=== PATIENT | male | born 1940 | race Caucasian/White ===

== ENCOUNTER 2021-01-16 12:44 | Observation (INO) | payer MEDICARE ==
[2021-01-16] MEDS ORDERED: solu-MEDROL 125 MG, Sterile H2O 10 ml 2 ML IV ONE ×2 (13:09)
[2021-01-16] MEDS ORDERED: DUONEB 0.5-3 MG/3 ml Neb IH ONE ×2 (13:09→13:26)
[2021-01-16] MEDS ORDERED: solu-MEDROL ONE ×2 (13:11→20:19)
[2021-01-16] MEDS ORDERED: Sterile H2O 10 ml IJ ONE ×2 (13:12→20:20)
--- NOTE | 2021-01-16 13:47 | XRAY ---
Indication: Cough. Comparison: March 25, 2020. Portable chest demonstrates new diffuse bilateral hazy airspace disease, right greater than left without consolidation/large effusion. Heart not enlarged again with tortuous descending aorta. Bony thorax intact again with moderate degenerative changes and new right shoulder arthroplasty.
[2021-01-16] MEDS ORDERED: Zithromax 500 MG/ 250 ML NaCl Premix 500 MG/250 ML IVPB IV STA (14:00)
[2021-01-16] MEDS ORDERED: ROCEPHIN 2 Gm-D5w 50ML BAG** 2 G/50 ML IVPB IV STA (14:00)
[2021-01-16 14:03] LABS: BASOPHIL % 0.2 % (0.0-0.4); Basophil (Absolute #) 0.01 (0-0.4); Eosinophil (Absolute #) 0 (0-0.5); Hematocrit 40.9 % (42-50); Hemoglobin 14.1 gm/dl (12.5-18.0); Lymphocyte (Absolute #) 0.88 (1.0-4.6); Lymphocytes % 14.4 % (24.0-44.0); Mean Cell Volume 89.3 fl (78-100); Mean Corpuscular Hemoglobin 30.8 pg (26-32); Mean Corpuscular Hgb Concent. 34.5 g/dl (32-36); Monocyte (Absolute #) 0.63 (0.0-1.3); Monocytes % 10.3 % (0.0-12.0); Neutrophil % 75.1 % (36.0-66.0); Platelet Count 152 K/mm3 (150-450); Red Blood Count 4.58 M/mm3 (4.1-5.6); Red Cell Distribution Width 13.9 % (11.5-14.0); White Blood Count 6.1 K/mm3 (4.0-10.5)
[2021-01-16 14:05] LABS: ALBUMIN 3.9 g/dL (3.5-5.0); ALKALINE PHOSPHATASE 66 U/L (38-126); ANION GAP 14.1 MEQ/L (5-15); BLOOD UREA NITROGEN 16 mg/dL (9-20); CHLORIDE 97 mmol/L (98-107); Calcium 8.4 mg/dL (8.4-10.2); Carbon Dioxide 21 mmol/L (22-30); Creatinine 1 0.64 mg/dL (0.66-1.25); EST GLOMERULAR FILTRATION RATE > 60.0 ML/MIN; Glucose 115 mg/dL (74-106); NT PRO BNP 236 pg/mL (0-1800); Potassium 3.8 mmol/L (3.5-5.1); SGOT/AST 61 U/L (17-59); SGPT/ALT 30 U/L (0-50); SODIUM 128 mmol/L (137-145)
--- NOTE | 2021-01-16 14:05 | ERPHSYRPT ---
- History of Present Illness Time Seen by Provider: 01/16/21 12:47 Source: patient Exam Limitations: no limitations Patient Subjective Stated Complaint: PT states "I hurt and I do not feel well" Triage Nursing Assessment: Pt presented alert and oriented X 3, skin pwd. Pt able to sepak in five to six word sentences pt tachypneic with wheezes noted. Physician History: 80 years old male with history of COPD, hypertension, chronic pain presented in the ER with 5 days of progressively worsening cough productive of clear to yellow sputum moderate in amount with associated generalized body ache fatigue tiredness and low-grade subjective feeling of fever and chills. Denies any chest pain or palpitations. Denies any known sick contact. Vaccinated against COVID-19. Timing/Duration: day(s) (5) Cough Quality/Degree: moderate, productive cough, sputum Possible Cause: unknown cause Modifying Factors: Worsens With: coughing Associated Symptoms: chills, chest pain/soreness, cough, muscle aches, shortness of breath, wheezing Allergies/Adverse Reactions: UNOBTAINABLE Allergy (Verified 01/16/21 12:53) pt states he is allergic to two types of meds but he does not know the names. Home Medications: Amlodipine Besylate 5 mg [Norvasc 5 mg] 5 mg PO DAILY 01/16/21 [History] Budesonide/Formoterol Fumarate [Symbicort 160-4.5 Mcg Inhaler] 10.2 gm IH 01/16/21 [History] Celecoxib [Celebrex] 200 mg PO DAILY 01/16/21 [History] Doxycycline Monohydrate 100 mg PO DAILY 01/16/21 [History] Famotidine 20 mg [Pepcid 20 MG] 20 mg PO BID 01/16/21 [History] Fexofenadine HCl 180 mg PO DAILY 01/16/21 [History] Fluticasone Propionate [Flovent Diskus] 50 mcg IH DAILY 01/16/21 [History] Gabapentin 300 mg [Neurontin 300 mg] 300 mg PO DAILY 01/16/21 [History] Methenam/M.blue/Salicyl/Hyoscy [Hyophen Tablet] 1 tab PO TID 01/16/21 [History] Methocarbamol 500 mg [Robaxin 500 MG] 1,000 mg PO DAILY 01/16/21 [History] Montelukast Sodium 10 mg [Singulair 10 MG] 10 mg PO DAILY 01/16/21 [History] Pravastatin Sodium 20 mg PO DAILY 01/16/21 [History] Tamsulosin HCl 0.4 mg PO DAILY 01/16/21 [History] Tolterodine Tartrate [Tolterodine Tartrate ER] 4 mg PO BID 01/16/21 [History] lisinopriL [Lisinopril] 10 mg PO DAILY 01/16/21 [History] Hx Tetanus, Diphtheria Vaccination/Date Given: No Hx Influenza Vaccination/Date Given: Yes Hx Pneumococcal Vaccination/Date Given: Yes Immunizations Up to Date: Yes Travel Risk - International Travel Have you traveled outside of the country in past 3 weeks: No - Coronavirus Screening Are you exhibiting any of the following symptoms?: No Close contact with a COVID-19 positive Pt in past 14-21 Days: No - Vaccine Status Have you recieved a Covid-19 vaccination: Yes 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 - Vaccination Dates Dates if Unknown: 2020 - Review of Systems Constitutional: Fever, Fatigue, Weakness Eyes: No Symptoms Ears, Nose, & Throat: Nose Congestion, Throat Pain Respiratory: Cough, Dyspnea, Dyspnea on Exertion (MICHELE), Wheezing Cardiac: No Symptoms Abdominal/Gastrointestinal: No Symptoms Genitourinary Symptoms: No Symptoms Musculoskeletal: Myalgias Skin: No Symptoms Neurological: No Symptoms Psychological: No Symptoms Endocrine: No Symptoms Hematologic/Lymphatic: No Symptoms Immunological/Allergic: No Symptoms - Past Medical History Neurological History: Other Cardiac History: High Cholesterol, Hypertension Respiratory History: Asthma Endocrine Medical History: Hypothyroidism Musculoskeletal History: Other Other Medical History: Hospitalized x3 days in 2017 after daughter found him passed out on the floor under his kitchen table, B TKA, R-side hernia repair, 2 prostate surgies, L eye cataracts, R TSA, L scrotum surgery, large cyst to L radial side of wrist, hx of sciatica, hard of hearing. Simón wears glasses for reading, but states he doesn't wear them all of the time as he feels they make objects more blurry. - Past Surgical History Past Surgical History: Yes Other Surgical History: bilat knee. right shoulder. turp X 2. sinus - Social History Smoking Status: Former smoker Exposure to second hand smoke: Yes Drug Use: none Patient Lives Alone: No - Nursing Vital Signs Nursing Vital Signs: Initial Vital Signs Temperature 98.8 F 01/16/21 12:46 Pulse Rate 101 H 01/16/21 12:46 Respiratory Rate 26 H 01/16/21 12:46 Blood Pressure 138/96 01/16/21 12:46 O2 Sat by Pulse Oximetry 93 L 01/16/21 12:46 Pain Scale Pain Intensity 0 - Physical Exam General Appearance: no apparent distress, alert Eye Exam: PERRL/EOMI, eyes nml inspection Ears, Nose, Throat Exam: pharyngeal erythema Neck Exam: normal inspection, supple, full range of motion Respiratory Exam: diminished breath sounds, rhonchi, wheezing Cardiovascular Exam: regular rate/rhythm, normal heart sounds Extremity Exam: normal inspection, normal range of motion Neurologic Exam: alert, oriented x 3, cooperative Skin Exam: normal color SpO2 Interpretation: O2 applied SpO2: 96 O2 Delivery: Room Air - Course EKG Interpreted by Me: RATE (101), Sinus Tach, NORMAL AXIS, Q-wave (Inferior), Non-specific ST Changes Ordered Tests: Active Orders 24 hr Category Date Time Status Bedrest ROUTINE Activity 01/16/21 15:46 Active Up With Assistance ROUTINE Activity 01/16/21 15:45 Active Field Marketer STAT Care 01/16/21 13:09 Active Code Status Order ROUTINE Care 01/16/21 15:46 Active EKG-ER Only STAT Care 01/16/21 13:09 Active Fall Protocol ROUTINE Care 01/16/21 15:46 Active IV Care Q6H Care 01/16/21 15:46 Active IV Insertion STAT Care 01/16/21 13:09 Active Oxygen-ED Only Nasal Cannula 2 lpm Care 01/16/21 13:09 Active POCT Glucose Check ACHS Care 01/16/21 15:[address] in Observation ROUTINE Care 01/16/21 15:46 Active Jesus Manuel Galloway, Apply ROUTINE Care 01/16/21 15:45 Active Weight,Daily 0600 Care 01/16/21 15:45 Active CHEST 1 VIEW (PORTABLE) Stat Exams 01/16/21 13:09 Completed BLOOD CULTURE Stat Lab 01/16/21 13:28 Received CBC W DIFF AM.LAB Lab 01/17/21 04:00 Ordered CBC W DIFF Stat Lab 01/16/21 13:35 Completed CMP AM.LAB Lab 01/17/21 04:00 Ordered CMP Stat Lab 01/16/21 13:35 Completed Lactic Acid Stat Lab 01/16/21 13:40 Completed MAGNESIUM Stat Lab 01/16/21 13:35 Completed NT PRO BNP Stat Lab 01/16/21 13:35 Completed TROPONIN Q3H Lab 01/16/21 13:35 Completed TROPONIN Q3H Lab 01/16/21 16:05 Completed TROPONIN Q3H Lab 01/16/21 19:15 Ordered TROPONIN Q3H Lab 01/16/21 22:15 Ordered TROPONIN Q3H Lab 01/17/21 01:15 Ordered UA W/RFX UR CULTURE Stat Lab 01/16/21 13:09 Ordered Oxygen Nasal Cannula 2 lpm RT 01/16/21 15:45 Active Respiratory Therapy Assessment DAILY RT 01/16/21 13:51 Active Medication Summary Generic Name Dose Route Start Last Admin Trade Name Freq PRN Reason Stop Dose Admin Acetaminophen 650 mg 01/16/21 15:45 Tylenol 325 Mg PO 02/15/21 15:44 Q4H PRN PRN PAIN AND/OR FEVER Albuterol/Ipratropium 3 ml 01/16/21 19:00 Duoneb 0.5-3 Mg/3 Ml Neb IH 02/15/21 18:59 Q6HRT [facility] Methylprednisolone Sodium 0 mg 01/16/21 18:00 Succinate 60 mg/ Sterile Water IV 02/15/21 17:59 2 ml Q6HT [facility] Enoxaparin Sodium 40 mg 01/17/21 10:00 Enoxaparin Sodium SQ 02/16/21 09:59 DAILY [facility] Azithromycin 500 mg in 250 mls @ 250 mls/hr 01/17/21 10:00 Zithromax 500 Mg/ 250 Ml Nacl Premix IV 02/16/21 09:59 Q24H10 [facility] Ceftriaxone Sodium/Dextrose 1 g in 50 mls @ 100 mls/hr 01/17/21 10:00 Rocephin 1 Gm-D5w 50 Ml Bag IV 01/20/21 09:59 Q24H10 [facility] Insulin Human Lispro 0 unit 01/16/21 15:45 Humalog SQ 02/15/21 15:44 UD PRN HYPERGLYCEMIA Pantoprazole Sodium 40 mg 01/17/21 10:00 Protonix 40 Mg Iv IV 02/16/21 09:59 Q24H10 [facility]UL[facility] Discontinued Medications Generic Name Dose Route Start Last Admin Trade Name Ac PRN Reason Stop Dose Admin Albuterol/Ipratropium 3 ml 01/16/21 13:09 01/16/21 13:27 Duoneb 0.5-3 Mg/3 Ml Neb IH 01/16/21 13:10 3 ml STAT ONE Administration Albuterol/Ipratropium Confirm 01/16/21 13:26 Duoneb 0.5-3 Mg/3 Ml Neb Administered 01/16/21 13:27 Dose 3 ml IH .STK-MED ONE Methylprednisolone Sodium 0 mg 01/16/21 13:09 01/16/21 13:14 Succinate 125 mg/ Sterile IV 01/16/21 13:10 125 mg Water 2 ml STAT ONE Administration Ceftriaxone Sodium/Dextrose 2 g in 50 mls @ 100 mls/hr 01/16/21 14:00 01/16/21 15:51 Rocephin 2 Gm-D5w 50ml Bag IV 01/16/21 14:29 Infused STAT STA Infusion Azithromycin 500 mg in 250 mls @ 250 mls/hr 01/16/21 14:00 01/16/21 16:52 Zithromax 500 Mg/ 250 Ml Nacl Premix IV 01/16/21 14:59 Infused STAT STA Infusion Ceftriaxone Sodium/Dextrose Confirm 01/16/21 14:11 Rocephin 2 Gm-D5w 50ml Bag Administered 01/16/21 14:12 Dose 2 g in 50 mls @ ud IV .STK-MED ONE Azithromycin Confirm 01/16/21 15:13 Zithromax 500 Mg/ 250 Ml Nacl Premix Administered 01/16/21 15:14 Dose 500 mg in 250 mls @ ud IV .STK-MED ONE Methylprednisolone Sodium Succinate Confirm 01/16/21 13:11 Solu-Medrol Administered 01/16/21 13:12 Dose 125 mg .ROUTE .STK-MED ONE Sterile Water Confirm 01/16/21 13:12 Sterile H2o 10 Ml Administered 01/16/21 13:13 Dose 10 ml IJ .STK-MED ONE Lab/Rad Data: Laboratory Result Diagrams 01/16/21 13:35 01/16/21 13:35 Laboratory Results 01/16/21 01/16/21 01/16/21 Range/Units 16:05 16:00 13:40 WBC (4.0-10.5) K/mm3 RBC (4.1-5.6) M/mm3 Hgb (12.5-18.0) gm/dl Hct (42-50) % MCV (78-100) fl MCH (26-32) pg MCHC (32-36) g/dl RDW (11.5-14.0) % Plt Count (150-450) K/mm3 MPV (7.5-11.0) fl Gran % (36.0-66.0) % Eos # (Auto) (0-0.5) Absolute Lymphs (auto) (1.0-4.6) Absolute Monos (auto) (0.0-1.3) Lymphocytes % (24.0-44.0) % Monocytes % (0.0-12.0) % Eosinophils % (0.00-5.0) % Basophils % (0.0-0.4) % Absolute Granulocytes (1.4-6.9) Basophils # (0-0.4) Sodium (137-145) mmol/L Potassium (3.5-5.1) mmol/L Chloride (98-107) mmol/L Carbon Dioxide (22-30) mmol/L Anion Gap (5-15) MEQ/L BUN (9-20) mg/dL Creatinine (0.66-1.25) mg/dL Estimated GFR ML/MIN Glucose (74-106) mg/dL Lactic Acid 1.3 (0.4-2.0) Calcium (8.4-10.2) mg/dL Magnesium (1.6-2.3) mg/dL Total Bilirubin (0.2-1.3) mg/dL AST (17-59) U/L ALT (0-50) U/L Alkaline Phosphatase (38-126) U/L Troponin I < 0.012 (0.000-0.034) ng/mL NT-Pro-B Natriuret Pep (0-1800) pg/mL Serum Total Protein (6.3-8.2) g/dL Albumin (3.5-5.0) g/dL SARS-CoV-2 (PCR) POSITIVE A (NEGATIVE) 01/16/21 01/16/21 01/16/21 Range/Units 13:35 13:35 13:35 WBC 6.1 (4.0-10.5) K/mm3 RBC 4.58 (4.1-5.6) M/mm3 Hgb 14.1 (12.5-18.0) gm/dl Hct 40.9 L (42-50) % MCV 89.3 (78-100) fl MCH 30.8 (26-32) pg MCHC 34.5 (32-36) g/dl RDW 13.9 (11.5-14.0) % Plt Count 152 (150-450) K/mm3 MPV 12.0 H (7.5-11.0) fl Gran % 75.1 H (36.0-66.0) % Eos # (Auto) 0 (0-0.5) Absolute Lymphs (auto) 0.88 L (1.0-4.6) Absolute Monos (auto) 0.63 (0.0-1.3) Lymphocytes % 14.4 L (24.0-44.0) % Monocytes % 10.3 (0.0-12.0) % Eosinophils % 0.0 (0.00-5.0) % Basophils % 0.2 (0.0-0.4) % Absolute Granulocytes 4.60 (1.4-6.9) Basophils # 0.01 (0-0.4) Sodium 128 L (137-145) mmol/L Potassium 3.8 (3.5-5.1) mmol/L Chloride 97 L (98-107) mmol/L Carbon Dioxide 21 L (22-30) mmol/L Anion Gap 14.1 (5-15) MEQ/L BUN 16 (9-20) mg/dL Creatinine 0.64 L (0.66-1.25) mg/dL Estimated GFR > 60.0 ML/MIN Glucose 115 H (74-106) mg/dL Lactic Acid (0.4-2.0) Calcium 8.4 (8.4-10.2) mg/dL Magnesium 2.0 (1.6-2.3) mg/dL Total Bilirubin 0.90 (0.2-1.3) mg/dL AST 61 H (17-59) U/L ALT 30 (0-50) U/L Alkaline Phosphatase 66 (38-126) U/L Troponin I < 0.012 (0.000-0.034) ng/mL NT-Pro-B Natriuret Pep 236 (0-1800) pg/mL Serum Total Protein 7.0 (6.3-8.2) g/dL Albumin 3.9 (3.5-5.0) g/dL SARS-CoV-2 (PCR) (NEGATIVE) - Progress Progress: improved Air Movement: fair Progress Note: 01/16/21 15:44 80 years old is evaluated for cough with generalized body ache fatigue and s ubjective feeling of fever and chills. Is given DuoNeb and steroid and placed on 2 L oxygen and saturation is around 94%. Patient resting oxygen saturation was around 90% on arrival. X-ray showed bilateral airspace disease. Normal white count, mildly low sodium and negative initial troponins. I believe patient would benefit with IV antibiotic, frequent neb treatments and steroids. Discussed with Dr. Humphrey and patient is being admitted. 01/16/21 17:34 Patient COVID-19 test turned out to be positive. Discussed with Dr. Champion, recommended remdesivir and patient is being admitted to Covid floor. Blood Culture(s) Obtained: Yes Antibiotics given: Yes Discussed with : Nupur Will see patient in: hospital (observation) Counseled pt/family regarding: lab results, diagnosis, rad results - Departure Departure Disposition: Observation Clinical Impression: COVID-19 virus detected Bilateral pneumonia Qualifiers: Pneumonia type: due to unspecified organism Lung location: unspecified part of lung Qualified Code(s): J18.9 - Pneumonia, unspecified organism Condition: Stable Critical Care Time: No Referrals: PEYTON SHAFER PA [Primary Care Provider] -
[2021-01-16] MEDS ORDERED: ROCEPHIN 2 Gm-D5w 50ML BAG** 2 G/50 ML IVPB IV ONE (14:11)
[2021-01-16] MEDS ORDERED: Zithromax 500 MG/ 250 ML NaCl Premix 500 MG/250 ML IVPB IV ONE (15:13)
[2021-01-16] MEDS ORDERED: HUMALOG SQ PRN (15:45)
[2021-01-16] MEDS ORDERED: TYLENOL 325 MG PO PRN (15:45)
[2021-01-16] MEDS ORDERED: REMDESIVIR 200 MG in Sodium Chloride 0.9% 250 ML 250 ML IV ONE (17:35)
[2021-01-16] MEDS ORDERED: DUONEB 0.5-3 MG/3 ml Neb IH SCH (19:00)
[2021-01-16] MEDS ORDERED: VENTOLIN COMMON CANISTER IH PRN (19:39)
[2021-01-16] MEDS: Advair Hfa 230/21 Mcg COMMON CANISTER IH SCH (19:43)
[2021-01-16] MEDS: solu-MEDROL 60 MG, Sterile H2O 10 ml 2 ML IV SCH ×4 (20:20→23:19)
[2021-01-16] MEDS ORDERED: HYDROCODONE-ACETAMIN 10-325 MG PO PRN (20:52)
[2021-01-16] MEDS: Flomax 0.4 MG PO SCH (21:06)
[2021-01-16] MEDS: NEURONTIN 300 MG PO SCH (21:07)
[2021-01-16] MEDS: celeBREX 100 MG PO SCH (21:07)
[2021-01-16] MEDS: Singulair 10 MG PO SCH (21:07)
[2021-01-16] MEDS: ZOCOR 20MG PO SCH (21:08)
[2021-01-16] MEDS: Pepcid 20 MG PO SCH (21:08)
[2021-01-16] MEDS ORDERED: Decadron 4 MG INJ IV SCH (22:00)
[2021-01-17 05:52] LABS: Absolute Neutrophil Ct (ANC) 2.24 (1.4-6.9); BASOPHIL % 0.3 % (0.0-0.4); Basophil (Absolute #) 0.01 (0-0.4); Eosinophil (Absolute #) 0 (0-0.5); Hematocrit 40.7 % (42-50); Hemoglobin 13.8 gm/dl (12.5-18.0); Lymphocyte (Absolute #) 0.58 (1.0-4.6); Lymphocytes % 18.8 % (24.0-44.0); Mean Cell Volume 89.6 fl (78-100); Mean Corpuscular Hemoglobin 30.4 pg (26-32); Mean Corpuscular Hgb Concent. 33.9 g/dl (32-36); Mean Platelet Volume 12.3 fl (7.5-11.0); Monocyte (Absolute #) 0.25 (0.0-1.3); Monocytes % 8.1 % (0.0-12.0); Neutrophil % 72.8 % (36.0-66.0); Platelet Count 147 K/mm3 (150-450); Red Blood Count 4.54 M/mm3 (4.1-5.6); White Blood Count 3.1 K/mm3 (4.0-10.5)
[2021-01-17] MEDS: solu-MEDROL 60 MG, Sterile H2O 10 ml 2 ML IV SCH ×2 (06:04)
[2021-01-17 06:37] LABS: ALBUMIN 3.7 g/dL (3.5-5.0); ALKALINE PHOSPHATASE 63 U/L (38-126); ANION GAP 16.1 MEQ/L (5-15); BLOOD UREA NITROGEN 17 mg/dL (9-20); CHLORIDE 98 mmol/L (98-107); Calcium 8.8 mg/dL (8.4-10.2); Carbon Dioxide 22 mmol/L (22-30); Creatinine 1 0.62 mg/dL (0.66-1.25); EST GLOMERULAR FILTRATION RATE > 60.0 ML/MIN; Glucose 174 mg/dL (74-106); Potassium 4.1 mmol/L (3.5-5.1); SGOT/AST 50 U/L (17-59); SGPT/ALT 32 U/L (0-50); SODIUM 132 mmol/L (137-145)
[2021-01-17] MEDS ORDERED: NON-FORMULARY ITEM (Fexofenadine Hcl [Fexofenadine Hcl] 180 MG) PO PRN (07:03)
[2021-01-17] MEDS ORDERED: CLARITIN 10 MG PO PRN (07:12)
[2021-01-17] MEDS ORDERED: MEDICATION INTERVENTION PO SCH (07:15)
[2021-01-17] MEDS ORDERED: Lasix 40 MG PO SCH (07:15)
[2021-01-17 07:20] LABS: Slide Review 1 YES
[2021-01-17] MEDS: Advair Hfa 230/21 Mcg COMMON CANISTER IH SCH ×2 (08:00→19:10)
[2021-01-17] MEDS ORDERED: DOXYCYCLINE MONOHYDRATE 100 MG PO SCH (10:00)
[2021-01-17] MEDS ORDERED: Zestril 10 MG PO SCH (10:00)
[2021-01-17] MEDS ORDERED: Robaxin 500 MG PO SCH (10:00)
[2021-01-17] MEDS ORDERED: DECADRON 10MG INJ. IV SCH (10:00)
[2021-01-17] MEDS ORDERED: ENOXAPARIN SODIUM SQ SCH (10:00)
[2021-01-17] MEDS ORDERED: NON-FORMULARY ITEM (Tolterodine Tartrate [Tolterodine Tartrate Er] 4 MG) PO SCH (10:00)
[2021-01-17] MEDS ORDERED: NORVASC 5 MG PO SCH (10:00)
[2021-01-17] MEDS ORDERED: [UNRECOGNIZED DRUG - OTHER] PO SCH (10:00)
[2021-01-17] MEDS ORDERED: Ditropan XL 5 MG PO SCH (10:00)
[2021-01-17] MEDS ORDERED: ROCEPHIN 1 Gm-D5w 50 ml Bag** 1 G/50 ML IVPB IV SCH (10:00)
[2021-01-17] MEDS ORDERED: NON-FORMULARY ITEM (Fluticasone Propionate [Flovent Diskus] 50 MCG) IH SCH (10:00)
[2021-01-17] MEDS ORDERED: SYNTHROID 100 MCG PO SCH (10:00)
[2021-01-17] MEDS ORDERED: ZOLOFT 50 MG TABLET PO SCH (10:00)
[2021-01-17] MEDS ORDERED: Zithromax 500 MG/ 250 ML NaCl Premix 500 MG/250 ML IVPB IV SCH (10:00)
[2021-01-17] MEDS ORDERED: Vibramycin 100 MG PO SCH (10:00)
[2021-01-17] MEDS ORDERED: PROTONIX 40 MG IV IV SCH (10:00)
[2021-01-17] MEDS: celeBREX 100 MG PO SCH ×2 (11:39→21:08)
[2021-01-17] MEDS: NEURONTIN 300 MG PO SCH ×3 (11:40→21:08)
[2021-01-17] MEDS: Pepcid 20 MG PO SCH ×2 (11:40→21:08)
--- NOTE | 2021-01-17 16:02 | HP ---
CHIEF COMPLAINT: Shortness of breath. HISTORY OF PRESENT ILLNESS: The patient is an 80 y/o WM who has had 2 or 3 days of coughing, shortness of breath, a little bit of nausea, just extremely fatigued. His sciatica has gotten worse. Says no one in the house who lives there has COVID-19. Doesn't know where he got it because he doesn't get out. He had aching and wheezing. He has a history of chronic obstructive pulmonary disease, but quit smoking 10 years ago. Hypertension, chronic pain, productive cough for 5 days. Did receive the first vaccine of Moderna. Went back and they were out and they never called him back or something. He is definitely pro-vaccine, but something got mixed up. SOCIAL HISTORY: Patient has moved from, I believe, the [facility] to live with his granddaughter here in [place] or like he says, she lives with him perhaps because of his situation where he does not drive and has no connections at home. HOME MEDICATIONS: Norvasc 5 q d, Symbicort 160 1 puff q d, Celebrex 200 q d, doxycycline 100 started 01/16/2021, Pepcid 20 q d, Franci 180 q d, Flovent discus 1 inhalation q d, Neurontin 300 q d, Robaxin 500 q d, methylene blue salicylate 1 tablet q 3 PRN, Pravastatin 20 q d, Flomax 0.4 q d, Tolterodine 4 mg bid, Lisinopril 10 q d. ALLERGIES: HE IS NOT SURE OF WHAT HE IS ALLERGIC TO. MEDICAL PROBLEMS: Hypertension, benign prostatic hypertrophy, arthritis of the knees, some neuropathy, some chronic obstructive pulmonary disease. I talked to him. He is very hard of hearing and he has some mild dementia. REVIEW OF SYSTEMS: HEENT: CHEST: CVS: ABDOMEN: EXTREMITIES: PHYSICAL EXAMINATION: The patient is a strong, appropriately aged, 79 y/o WM who is not obese. He has a tight cough. CHEST: Has wheezes bilateral. CVS: No murmurs or gallops. ABDOMEN: Soft. No tenderness or organomegaly. EXTREMITIES: No cyanosis. No edema. Fairly good strength. VITAL SIGNS: Temperature 98, pulse 101, respirations 26, BP 138/96, O2 saturation 93 on several liters. When he presented, I think he was in his 80s. He had no pain when he came in. he was cooperative, but he is hard of hearing and I think he has some mild dementia. His sodium was down to 129. His WBC was normal. His test for Lovenox was positive. Chest x-ray showed some bilateral infiltrate. WBC was 3.1. SURGERIES: TKA, right-sided hernia repair, two prostate surgeries, left eye cataract, scrotum surgery, large cyst on the left radial wrist, history of hypertension, problems reading. IMPRESSION: 1. PATIENT HAS COVID-19 PNEUMONIA. 2. BENIGN PROSTATIC HYPERTROPHY. 3. OSTEOARTHRITIS. 4. SOME CHRONIC OBSTRUCTIVE PULMONARY DISEASE. He is fairly alert, oriented, and pleasant. 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 PLAN: Plan will be treat him with Remdesivir, Decadron, anticoagulated him, use O2 if needed. Prognosis good.
[2021-01-17] MEDS ORDERED: REMDESIVIR 100 MG in Sodium Chloride 0.9% 100 ML BAG 100 ML IV SCH (18:00)
[2021-01-17] MEDS: Flomax 0.4 MG PO SCH (21:08)
[2021-01-17] MEDS: ZOCOR 20MG PO SCH (21:08)
[2021-01-17] MEDS: Singulair 10 MG PO SCH (21:10)
[2021-01-18 08:36] LABS: BASOPHIL % 0.1 % (0.0-0.4); Basophil (Absolute #) 0.01 (0-0.4); Eosinophil (Absolute #) 0 (0-0.5); Hemoglobin 13.5 gm/dl (12.5-18.0); Lymphocyte (Absolute #) 0.97 (1.0-4.6); Mean Cell Volume 90.7 fl (78-100); Mean Corpuscular Hemoglobin 30.6 pg (26-32); Mean Corpuscular Hgb Concent. 33.8 g/dl (32-36); Monocyte (Absolute #) 0.97 (0.0-1.3); Neutrophil % 83.9 % (36.0-66.0); Platelet Count 206 K/mm3 (150-450); Red Blood Count 4.41 M/mm3 (4.1-5.6); White Blood Count 12.1 K/mm3 (4.0-10.5)
[2021-01-18 08:51] VITALS: BP 127/81; PULSE 83; O2SAT 92
[2021-01-18] MEDS ORDERED: Lasix 40 MG PO SCH (10:00)
[2021-01-18 10:56] LABS: ALBUMIN 3.7 g/dL (3.5-5.0); ALKALINE PHOSPHATASE 56 U/L (38-126); ANION GAP 16.2 MEQ/L (5-15); BLOOD UREA NITROGEN 27 mg/dL (9-20); CHLORIDE 96 mmol/L (98-107); Calcium 9.2 mg/dL (8.4-10.2); Carbon Dioxide 24 mmol/L (22-30); Creatinine 1 0.78 mg/dL (0.66-1.25); EST GLOMERULAR FILTRATION RATE > 60.0 ML/MIN; Glucose 120 mg/dL (74-106); Potassium 4.2 mmol/L (3.5-5.1); SGOT/AST 46 U/L (17-59); SGPT/ALT 34 U/L (0-50); SODIUM 132 mmol/L (137-145); Total Protein 6.9 g/dL (6.3-8.2)
[2021-01-20] MEDS ORDERED: VITAMIN D PO SCH (10:00)
--- NOTE | 2021-01-20 16:28 | DS ---
ADMISSION DIAGNOSIS: 1. COVID-19 PNEUMONIA. 2. CORONARY ARTERY DISEASE. 3. BACK PAIN. 4. HYPERTENSION. 5. BENIGN PROSTATIC HYPERTROPHY. 6. OSTEOARTHRITIS. DISCHARGE DIAGNOSIS:1. COVID-19 PNEUMONIA. 2. CORONARY ARTERY DISEASE. 3. BACK PAIN. 4. HYPERTENSION. 5. BENIGN PROSTATIC HYPERTROPHY. 6. OSTEOARTHRITIS. BRIEF HISTORY: The patient is an 80 y/o WM who was admitted after 2-3 days of increasing shortness of breath, aching all over, nauseated, and severe fatigue. He had one of the Moderna vaccine, but did not get the 2nd one because they ran out wherever he was going. He quit smoking 10 years ago. His O2 saturation when he came to the Emergency Room was like 88 corrected with 3 liters. He has been on Norvasc 5, Symbicort 160 q d, Celebrex 200 q d, doxycycline 100 mg q d started on the , Pepcid 20 q d, Franci 180 q d, Flovent discus 1 inhalation q d, Neurontin 300 q d, Robaxin 500 q d, methylene blue salicylate 1 tablet q 3 PRN bladder problems, pravastatin 20 q d, Flomax 0.4 q d, Tolterodine 4 mg bid, lisinopril 10 q d. His temperature came down pretty immediately. He felt much better on the 2nd day after getting some IV fluids and Decadron, Remdesivir. He was anticoagulated prophylactically and also given antibodies. His troponins were negative. He steadily improved. Sodium was a little bit low 128 from probably fluid overload due to pushing water at home. His chest x-ray did show pneumonitis consistent with COVID-19 pneumonitis. Was in great shape on the morning of discharge, feeling well, and was discharged on his home medication plus Prednisone 20 2 pills a day AM for 5 days and then cut it down to 1 q d. Make sure he has no breathing problems. Prognosis good.
== END 2021-01-18 09:45 | disposition home or self-care (01) ==
LOC: ED 12:44 → MED SURG 18:09
PROVIDERS: ADMIT Family Medicine; ATTEND Family Medicine
DX: U07.1 COVID-19 (principal); J12.82 Pneumonia due to coronavirus disease 2019; R53.83 Other fatigue; R11.0 Nausea; I10 Essential (primary) hypertension; G89.29 Other chronic pain; N40.0 Benign prostatic hyperplasia without lower urinary tract symptoms; M19.90 Unspecified osteoarthritis, unspecified site; J44.9 Chronic obstructive pulmonary disease, unspecified; Z79.899 Other long term (current) drug therapy; Z20.822 Contact with and (suspected) exposure to COVID-19
CPT/HCPCS: 36000; 36415; 71045; 80053; 83605; 83735; 83880; 84484; 85025; 85379; 87040; 93005; 93041; 93268; 94640; 94762; 96365; 96367; 96374; 99285; G0378; U0003; J0456; J0696; J1100; J1650; J2930; A9270-GY

== ENCOUNTER 2021-03-19 13:16 | Emergency (ER) | payer MEDICARE ==
[2021-03-19 13:22] VITALS: PULSE 105
[2021-03-19] MEDS ORDERED: solu-MEDROL 125 MG, Sterile H2O 10 ml 2 ML IV ONE ×2 (13:26)
[2021-03-19] MEDS ORDERED: Hydromorphone 1 mg/ml Injection IV ONE ×2 (13:26→16:53)
[2021-03-19] MEDS ORDERED: Zestril 20 MG PO ONE (13:28)
[2021-03-19] MEDS ORDERED: NORVASC 5 MG PO ONE (13:29)
[2021-03-19] MEDS ORDERED: Sterile H2O 10 ml IJ ONE (13:34)
[2021-03-19] MEDS ORDERED: Hydromorphone 1 mg/ml Injection ONE ×2 (13:34→16:54)
[2021-03-19] MEDS ORDERED: solu-MEDROL ONE (13:34)
[2021-03-19] MEDS ORDERED: NORVASC 5 MG ONE (13:35)
[2021-03-19 14:25] VITALS: O2SAT 93
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
[2021-03-19 16:35] VITALS: BP 147/99
[2021-03-19] MEDS ORDERED: Hydromorphone 1 mg/ml Injection IM ONE (16:56)
== END 2021-03-19 17:09 | disposition home or self-care (01) ==
LOC: ED 13:16
DX: M48.061 Spinal stenosis, lumbar region without neurogenic claudication (principal); M51.16 Intervertebral disc disorders with radiculopathy, lumbar region; G89.29 Other chronic pain; R33.9 Retention of urine, unspecified; I10 Essential (primary) hypertension; E78.5 Hyperlipidemia, unspecified; Z79.891 Long term (current) use of opiate analgesic
CPT/HCPCS: 51702; 96372; 96374; 96375; 99284; J1170; J2930; A9270-GY

== ENCOUNTER 2022-05-14 10:47 | Day surgery (SDC) | payer MEDICARE ==
--- NOTE | 2022-05-14 08:35 | HP ---
DATE OF SURGERY: 05/14/2022 HISTORY OF PRESENT ILLNESS: The patient is an 81-year-old with [facility] He is need of follow up screening colonoscopy. No bloody stools. No change in bowel movements. No new pain. Family history negative for colon cancer. PAST MEDICAL HISTORY: Cataracts. Thyroid disease. Hypertension. Arthritis. Post-traumatic stress disorder. PAST SURGICAL HISTORY: Sinus surgery. Transurethral resection of prostate. Shoulder replacement. Colonoscopy. Knee replacement. Back surgery in the past. MEDICATIONS: Vitamin D, Probiotic, Tylenol. He had taken some cephalexin in the past. ALLERGIES: TERAZOSIN. HYDROCHLOROTHIAZIDE. FAMILY HISTORY: Negative for colon cancer. SOCIAL HISTORY: No smoking or alcohol abuse. REVIEW OF SYSTEMS: Fourteen systems reviewed. No chest pain or palpitations. Other systems negative or noncontributory as above and per preadmission questionnaire. PHYSICAL EXAMINATION: BMI 30.71. GENERAL: No acute distress. HEENT: Sclerae nonicteric. NECK: No JVD. CHEST: Equal excursion, nonlabored breathing. CVS: Regular rate and rhythm. ABDOMEN: Soft. No peritoneal signs. EXTREMITIES: No significant edema. NEURO: Alert, oriented, moving extremities symmetrically. RECTAL: Deferred timed to endoscopy exam. PSYCH: Appropriate mood and affect. SKIN: Dry. IMPRESSION: History of polyps. He is in need of follow up screening colonoscopy. He was shown the risk sheet explained the procedure in detail including but not limited to bleeding or infection, risk of bowel injury or perforation, risk of missed or nondiagnosis or incomplete exam possibly requiring barium enema, other studies or procedures, general risk of anesthesia or sedation, risk of bowel prep but not limited to, consent obtained. Will proceed with outpatient follow up screening colonoscopy under MAC anesthesia.
[2022-05-14] MEDS ORDERED: Lactated Ringers 1,000 ML IV SCH (11:30)
[2022-05-14] MEDS ORDERED: Xylocaine-Mpf 2% 5 Ml Vial ONE (12:04)
[2022-05-14] MEDS ORDERED: DIPRIVAN 200 MG/20 ML IV ONE ×2 (12:04→12:26)
[2022-05-14 13:12] VITALS: O2SAT 92
[2022-05-14 14:39] VITALS: BP 147/74; PULSE 89
--- NOTE | 2022-05-14 15:08 | OP ---
SURGERY DATE/TIME: 05/14/2022 1208 PREOPERATIVE DIAGNOSIS: History of polyp, need follow up colonoscopy. POSTOPERATIVE DIAGNOSES: 1) ASA Class III. 2) Very tortuous colon. 3) Fair to limited prep limiting the exam for very small lesions. 4) Diverticulosis most prominent in left colon. 5) Small polyp ascending colon and rectum. PROCEDURES: 1) Colonoscopy to cecum. 2) Hot biopsy polypectomy of two small ascending colon polyps versus hyperplastic lesion. 3) Hot biopsy polypectomy of two small early polyps versus hyperplastic lesion rectum. SURGEON: Dr. Nazario Vaughan. ANESTHESIA: MAC. ESTIMATED BLOOD LOSS: Minimal. INDICATIONS: As noted above. Risks and benefits explained in detail but not limited to and consent obtained. DESCRIPTION OF PROCEDURE AND FINDINGS: The patient is taken to the endoscopy room. MAC anesthesia induced. After official time out and no disagreement with planned procedure, digital rectal exam did not reveal any rectal masses. Video colonoscope inserted and passed up through the very tortuous sigmoid, descending, transverse and ascending colon requiring positioning on his back with two different staff members pushing on his abdomen. Finally was able to reach the ileocecal valve and cecal area. There was limited exam for semisolid stool. No signs of any large polyps, masses or obstructing lesions. It was very limited for very small, early polyp or lesion. The scope is withdrawn. There was angulation and took some time. With reposition to be able to take two small, early polyps in the ascending colon removed with hot biopsy polypectomy. Good hemostasis noted. The scope was slowly and carefully withdrawn. He did have moderate diverticulosis in the left colon. It was complicated in the left colon. He did have a few small, early polyps versus hyperplastic lesions in the rectum removed with hot biopsy polypectomy. Good hemostasis noted. Again, the prep did limit the exam for very small lesions. There were no signs of any large obstructing masses. Will await path results. Likely will recommend follow up scope within three years given his prep quality and polyps. Findings discussed with the family out in the waiting area.
== END 2022-05-14 13:50 | disposition home or self-care (01) ==
LOC: SDC 10:47
PROVIDERS: ATTEND Surgery
DX: Z09 Encounter for follow-up examination after completed treatment for conditions other than malignant neoplasm (principal); Z86.010 Personal history of colon polyps; K57.30 Diverticulosis of large intestine without perforation or abscess without bleeding; D12.2 Benign neoplasm of ascending colon; K62.1 Rectal polyp
CPT/HCPCS: 99100; J2704

== ENCOUNTER 2022-08-07 09:36 | Day surgery (SDC) | payer MEDICARE ==
[~2022-08-07 09:36] MED LIST: Ak-Dilate OPHTHALMIC*** 1.065 ML, Cyclogyl 1% OPHTH SOL 1.065 ML, GATIFLOXACIN 0.5% OPH... OP ONE; BETADINE 5% OPHTHALMIC 30 ML OP ONE; Lactated Ringers 1,000 ML IV SCH; NON-FORMULARY ITEM OP ONE; TETRACAINE 0.5% STERI-UNIT SOL OP ONE; cefUROXime sodium 0.005 GM in Sodium Chloride Flush 30 ML*** 0.5 ML IJ ONE
[2022-08-07] MEDS ORDERED: Lactated Ringers 1,000 ML IV SCH (10:00)
[2022-08-07] MEDS ORDERED: Lactated Ringers 1,000 ML IV ONE (10:16)
[2022-08-07 10:38] LABS: ANION GAP 10.9 MEQ/L (5-15); BLOOD UREA NITROGEN 14 mg/dL (9-20); CHLORIDE 99 mmol/L (98-107); Calcium 8.5 mg/dL (8.4-10.2); Carbon Dioxide 31 mmol/L (22-30); Creatinine 1 0.68 mg/dL (0.66-1.25); EST GLOMERULAR FILTRATION RATE > 60.0 ML/MIN; Glucose 99 mg/dL (74-106); Potassium 4.4 mmol/L (3.5-5.1); SODIUM 136 mmol/L (137-145)
[2022-08-07] MEDS ORDERED: Zofran 4 MG/2 ML VIAL IV PRN (11:30)
[2022-08-07] MEDS ORDERED: ACETAZOLAMIDE 250 MG TABLET PO ONE (11:30)
[2022-08-07] MEDS ORDERED: DIPRIVAN 200 MG/20 ML IV ONE (12:04)
[2022-08-07 13:16] VITALS: BP 134/94; PULSE 84; O2SAT 92
[2022-08-07] MEDS ORDERED: Epinephrine Preservative Free 1 MG/ML IJ ONE (14:08)
== END 2022-08-07 13:22 | disposition home or self-care (01) ==
LOC: SDC 09:36
PROVIDERS: ATTEND Ophthalmology
DX: H25.812 Combined forms of age-related cataract, left eye (principal); I10 Essential (primary) hypertension; Z79.899 Other long term (current) drug therapy
CPT/HCPCS: 36415; 80048; 93005; 99100; C1780; J0171; J2704; A9270-GY

== ENCOUNTER 2022-10-09 10:15 | Day surgery (SDC) | payer MEDICARE ==
[~2022-10-09 10:15] MED LIST changes: +ACETAZOLAMIDE 250 MG TABLET PO ONE; +Zofran 4 MG/2 ML VIAL IV PRN
[2022-10-09] MEDS ORDERED: Epinephrine Preservative Free 1 MG/ML IJ ONE (10:16)
[2022-10-09] MEDS ORDERED: TETRACAINE 0.5% STERI-UNIT SOL OP ONE ×2 (10:30)
[2022-10-09] MEDS ORDERED: BETADINE 5% OPHTHALMIC 30 ML OP ONE (10:30)
[2022-10-09] MEDS ORDERED: Ak-Dilate OPHTHALMIC*** 1.065 ML, Cyclogyl 1% OPHTH SOL 1.065 ML, GATIFLOXACIN 0.5% OPH... OP ONE ×4 (10:30)
[2022-10-09] MEDS ORDERED: Lactated Ringers 1,000 ML IV SCH (10:30)
[2022-10-09] MEDS ORDERED: NON-FORMULARY ITEM OP ONE (10:30)
[2022-10-09] MEDS ORDERED: cefUROXime sodium 0.005 GM in Sodium Chloride Flush 30 ML*** 0.5 ML IJ ONE (10:30)
[2022-10-09] MEDS ORDERED: Lactated Ringers 1,000 ML IV ONE ×2 (11:26→14:36)
[2022-10-09] MEDS ORDERED: ACETAZOLAMIDE 250 MG TABLET PO ONE (12:30)
[2022-10-09] MEDS ORDERED: Zofran 4 MG/2 ML VIAL IV PRN (12:30)
[2022-10-09] MEDS ORDERED: DIPRIVAN 200 MG/20 ML IV ONE ×2 (13:54→14:10)
[2022-10-09] MEDS ORDERED: MIOSTAT IO ONE (14:31)
[2022-10-09 14:57] VITALS: BP 146/86; PULSE 76; O2SAT 92
== END 2022-10-09 15:06 | disposition home or self-care (01) ==
LOC: SDC 10:15
PROVIDERS: ATTEND Ophthalmology
DX: H25.811 Combined forms of age-related cataract, right eye (principal)
CPT/HCPCS: 99100; C1780; J0171; J2704; A9270-GY

== ENCOUNTER 2023-12-14 03:49 | Inpatient (IN) | payer MEDICARE ==
--- NOTE | 2023-12-14 04:11 | ERPHSYRPT ---
- History of Present Illness Source: patient, family, EMS Exam Limitations: no limitations Patient Subjective Stated Complaint: pt states he has been short of breath for the last couple days Triage Nursing Assessment: pt came into the er via ambulance; pt was transferred to cot per staff and ems staff; pt is axo x3; c/o SOB; pt denies pain; labored breathing present; skin PDW; tachycardic Timing/Duration: yesterday, worse Severity of Dyspnea-Max: mild (To moderate) Severity of Dyspnea-Current: mild (To moderate) Possible Cause: occasional episodes Modifying Factors: Improves With: albuterol nebulizer, oxygen, rest Associated Symptoms: anxiety, No chest pain/discomfort, No painful breathing, No productive cough Hx Tetanus, Diphtheria Vaccination/Date Given: No Hx Influenza Vaccination/Date Given: Yes Hx Pneumococcal Vaccination/Date Given: Yes <BARBARA JAQUEZ - Last Filed: 12/14/23 06:55> <EDWARD WILKINS - Last Filed: 12/14/23 08:14> - History of Present Illness Time Seen by Provider: 12/14/23 04:11 Physician History: This is an 83-year-old white male patient was brought into the emergency department by the paramedics because of worsening shortness of breath. The paramedics provided additional independent information as did a family member upon arrival to the emergency department. The paramedics provided the patient with a nebulizer treatment of albuterol. Patient states his symptoms have been worsening over the last 2 days. Patient commented that he has been urinating often and has a history of prostatitis and wants a dose of double strength Bactrim. 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 He denies chest pain. He denies abdominal pain. He has no nausea vomiting or diarrhea symptoms. He has not had a measured fever. Patient was recently started on albuterol nebulizer treatments. Patient family were states that this patient does not particularly compliant with wearing his oxygen (BARBARA JAQUEZ) Allergies/Adverse Reactions: hydrochlorothiazide Allergy (Verified 12/14/23 03:52) terazosin Allergy (Verified 12/14/23 03:52) Home Medications: Amlodipine Besylate 5 mg [Norvasc 5 mg] 5 mg PO DAILY 01/16/21 [History] Celecoxib [Celebrex] 200 mg PO BID 01/16/21 [History] Famotidine 20 mg [Pepcid 20 MG] 20 mg PO BID 01/16/21 [History] Fexofenadine HCl 180 mg PO DAILY PRN PRN 01/16/21 [History] Furosemide 40 mg [Lasix 40 MG] 40 mg PO UD 01/16/21 [History] Levothyroxine Sodium 100 Mcg [Synthroid 100 Mcg] 200 mcg PO DAILY 01/16/21 [History] Montelukast Sodium 10 mg [Singulair 10 MG] 10 mg PO QHS 01/16/21 [History] Pravastatin Sodium 20 mg PO QHS 01/16/21 [History] Sertraline HCl 50 mg [Zoloft 50 mg Tablet] 200 mg PO DAILY 01/16/21 [H istory] Tamsulosin HCl 0.4 mg PO QHS 01/16/21 [History] Tolterodine Tartrate [Tolterodine Tartrate ER] 4 mg PO DAILY 01/16/21 [History] lisinopriL [Lisinopril] 10 mg PO DAILY 01/16/21 [History] Fluticasone Propion/Salmeterol [Fluticasone-Salmeterol 250-50] 1 each IH WEEKLY 04/23/22 [History] Methenam/M.blue/Salicyl/Hyoscy [Hyophen Tablet] 82 mg PO TID 04/23/22 [History] Multivitamin 1 each PO DAILY 04/23/22 [History] Prazosin HCl 1 mg PO HS 04/23/22 [History] Budesonide/Formoterol Fumarate [Budesonide-Formoterol 160-4.5] 10.2 gm IH DAILY 08/01/22 [History] Cholecalciferol (Vitamin D3) [Vitamin D] 1,000 unit PO DAILY 08/01/22 [History] Methocarbamol [Robaxin] 1,000 mg PO TID 08/01/22 [History] Omeprazole 20 mg PO DAILY 08/01/22 [History] Ondansetron ODT 4 MG [Zofran Odt 4 mg] 4 mg PO BID PRN PRN 08/01/22 [History] Pregabalin [Lyrica] 200 mg PO DAILY 08/01/22 [History] Travel Risk - International Travel Have you traveled outside of the country in past 3 weeks: No - Emerging Infectious Disease Are you exhibiting symptoms associated with any current EIDs: Yes Symptoms: Cough: New Onset, Shortness of Breath <BARBARA JAQUEZ - Last Filed: 12/14/23 06:55> - Review of Systems Constitutional: No Symptoms Eyes: No Symptoms Ears, Nose, & Throat: No Symptoms Respiratory: Dyspnea Cardiac: No Symptoms Abdominal/Gastrointestinal: No Symptoms Genitourinary Symptoms: No Symptoms Musculoskeletal: No Symptoms Skin: No Symptoms Neurological: No Symptoms Psychological: No Symptoms Endocrine: No Symptoms Hematologic/Lymphatic: No Symptoms Immunological/Allergic: No Symptoms All Other Systems: Reviewed and Negative <BARBARA JAQUEZ - Last Filed: 12/14/23 06:55> - Past Medical History Pertinent Past Medical History: Yes Neurological History: No Pertinent History ENT History: Cataracts, Other Cardiac History: Hypertension Respiratory History: Asthma Endocrine Medical History: Hypothyroidism Musculoskeletal History: Arthritis, Osteoarthritis GI Medical History: No Pertinent History Psycho-Social History: Depression Male Reproductive Disorders: Prostate Problems Other Medical History: PTST S/P [place]. chronic sinusitis. carpal tunnel. prostatitus - Past Surgical History Past Surgical History: Yes Neuro Surgical History: No Pertinent History Cardiac: No Pertinent History Respiratory: No Pertinent History Gastrointestinal: Hernia Repair Musculoskeletal: Joint Replacement, Orthopedic Surgery Male Surgical History: Prostate Surgery, Other Other Surgical History: bilat knee. bilateral shoulder. turp X 2. sinus. eye surgery x 3 back surgery,. LOWER BACK - Social History Smoking Status: Former smoker Exposure to second hand smoke: No Drug Use: none Patient Lives Alone: No - Social Determinants of Health Will the patient participate in the screening: Yes Do you worry about a steady place to live?: No Do you have any problems with any of the following?: No known problems In the past 12 months,have you had to go without utilities?: No Transportation Issues: No Has anyone in your support network made you feel unsafe?: No Have you or anyone in your house had to go without enough: No <BARBARA JAQUEZ - Last Filed: 12/14/23 06:55> - Physical Exam General Appearance: mild distress, alert, anxiety, obese Eye Exam: PERRL/EOMI, eyes nml inspection Ears, Nose, Throat Exam: hearing grossly normal, normal ENT inspection, normal pharynx Neck Exam: normal inspection, non-tender, supple, full range of motion Respiratory Exam: respiratory distress (Mild), diminished breath sounds, No chest tenderness, No accessory muscle use, No wheezing, No stridor Abdominal/Gastrointestinal Exam: soft, normal bowel sounds, No tenderness Rectal Exam: not done Extremity Exam: non-tender, normal range of motion, normal inspection, no calf tenderness, no pedal edema, pelvis stable Neurologic Exam: alert, oriented x 3, cooperative, 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 as tested, sensation nml Skin Exam: normal color, warm, dry Lymphatic Exam: No adenopathy SpO2 Interpretation: borderline oxygenation SpO2: 90 O2 Delivery: Nasal Cannula <BARBARA JAQUEZ - Last Filed: 12/14/23 06:55> - Nursing Vital Signs Nursing Vital Signs: Initial Vital Signs Temperature 99.7 F 12/14/23 03:52 Pulse Rate 114 H 12/14/23 03:52 Respiratory Rate 12/14/23 03:52 Blood Pressure 133/96 12/14/23 03:52 O2 Sat by Pulse Oximetry 91 L 12/14/23 03:52 Pain Scale Pain Intensity 0 - Course Nursing assessment & vital signs reviewed: Yes EKG Interpreted by Me: RATE (114), Sinus Tach, NORMAL AXIS, NORMAL INTERVALS, NORMAL QRS, Other (TC is 446. Computer readout states consider anterior injury ST elevation. I am not appreciating that finding on this twelve-lead EKG.) <BARBARA JAQUEZ - Last Filed: 12/14/23 06:55> - Course Rhythm Strip: Rate (Second EKG rate 108 bpm, sinus tach, left axis deviation, no definite ST elevations, Q waves) <EDWARD WILKINS - Last Filed: 12/14/23 08:14> Ordered Tests: Active Orders 24 hr Category Date Time Status EKG-ER Only STAT Care 12/14/23 04:17 Active IV Insertion STAT Care 12/14/23 04:17 Active Oxygen-ED Only Nasal Cannula 4 lpm Care 12/14/23 04:17 Active Pulse Oximetry (ED) STAT Care 12/14/23 04:17 Active CHEST WITH CONTRAST [CT] Stat Exams 12/14/23 05:07 Ordered ARTERIAL BLOOD GASES Stat Lab 12/14/23 04:17 Completed BLOOD CULTURE Stat Lab 12/14/23 04:00 Received CBC W DIFF Stat Lab 12/14/23 04:15 Completed CMP Stat Lab 12/14/23 04:15 Completed CULTURE,SPUTUM Stat Lab 12/14/23 04:17 Ordered D-DIMER QUANTITATIVE Stat Lab 12/14/23 04:15 Completed Lactic Acid Stat Lab 12/14/23 04:17 Completed MAGNESIUM Stat Lab 12/14/23 04:15 Completed MONO SCREEN Stat Lab 12/14/23 04:00 Completed NT PRO BNPII Stat Lab 12/14/23 04:00 Completed PROTIME WITH INR Stat Lab 12/14/23 04:41 Received PTT Stat Lab 12/14/23 04:41 Received TROPONIN Q4H Lab 12/14/23 04:15 Completed TROPONIN Q4H Lab 12/14/23 07:30 Completed TROPONIN Q4H Lab 12/14/23 12:30 Ordered UA W/RFX UR CULTURE Stat Lab 12/14/23 05:51 Completed Respiratory Therapy Assessment DAILY RT 12/14/23 04:29 Active Transfer Order Routine Transfer 12/14/23 Ordered Medication Summary Generic Name Dose Route Start Last Admin Trade Name Freq PRN Reason Stop Dose Admin Enoxaparin Sodium 90 mg 12/14/23 08:13 Enoxaparin Sodium 120 Mg/0.8 Ml Syringe SQ 12/14/23 08:14 1XONLY ONE Azithromycin 500 mg in 250 mls @ 250 mls/hr 12/14/23 07:20 Zithromax 500 Mg/ 250 Ml Nacl Premix IV 12/14/23 08:19 STAT STA Discontinued Medications Generic Name Dose Route Start Last Admin Trade Name Freq PRN Reason Stop Dose Admin Albuterol/Ipratropium Confirm 12/14/23 04:28 Ipratropium/Albuterol Sulfate 3 Ml Ampul.Neb Administered 12/14/23 04:29 Dose 3 ml IH .STK-MED ONE Albuterol/Ipratropium 3 ml 12/14/23 04:29 12/14/23 04:30 Ipratropium/Albuterol Sulfate 3 Ml Ampul.Neb IH 12/14/23 04:30 3 ml STAT ONE Administration Methylprednisolone Sodium 0 mg 12/14/23 04:17 12/14/23 04:22 Succinate 125 mg/ Sterile IV 12/14/23 04:18 125 mg Water 2 ml STAT ONE Administration Enoxaparin Sodium 90 mg 12/14/23 08:02 Enoxaparin Sodium 100 Mg/Ml Syringe 1 mg/kg (90 mg) 12/14/23 08:03 SQ ONCE STA Ceftriaxone Sodium 2 gm in 100 mls @ 200 mls/hr 12/14/23 07:20 12/14/23 08:02 Rocephin 2 Gm/100 Ml Nacl IV 12/14/23 07:49 Infused STAT ONE Infusion Ceftriaxone Sodium Confirm 12/14/23 07:30 Rocephin 2 Gm/100 Ml Nacl Administered 12/14/23 07:31 Dose 2 gm in 100 mls @ ud IV .STK-MED ONE Methylprednisolone Sodium Succinate Confirm 12/14/23 04:21 Methylprednis Sod Succ 125 Mg/2 Ml Vial Administered 12/14/23 04:22 Dose 125 mg .ROUTE .STK-MED ONE Sterile Water Confirm 12/14/23 04:21 Water For Injection,Sterile 10 Ml Vial Administered 12/14/23 04:22 Dose 10 ml IJ .STK-MED ONE Trimethoprim/Sulfamethoxazole 1 tab 12/14/23 04:31 12/14/23 04:45 Smz/Tmp Ds Tablet 1 Tablet PO 12/14/23 04:32 1 tab STAT STA Administration Trimethoprim/Sulfamethoxazole Confirm 12/14/23 04:44 Smz/Tmp Ds Tablet 1 Tablet Administered 12/14/23 04:45 Dose 1 tab PO .STK-MED ONE Lab/Rad Data: Laboratory Result Diagrams 12/14/23 04:15 12/14/23 04:15 Laboratory Results 12/14/23 12/14/23 12/14/23 Range/Units 07:30 05:51 04:17 WBC (4.23-9.07) x10^3/uL RBC (4.63-6.08) x10^6/uL Hgb (13.7-17.5) g/dL Hct (40.1-51.0) % MCV (79.0-92.2) fL MCH (25.7-32.2) pg MCHC (32.3-36.5) g/dL RDW (11.6-14.4) % Plt Count (163-337) x10^3/uL MPV (9.4-12.4) fL Gran % (34.0-67.9) % Immature Gran % (Auto) (0.001-0.429) % Nucleat RBC Rel Count (0.00-0.2) % Eos # (Auto) (0.04-0.54) x10^3/uL Immature Gran # (Auto) (0.001-0.031) x10^3u/L Absolute Lymphs (auto) (1.32-3.57) x10^3/uL Absolute Monos (auto) (0.30-0.82) x10^3/uL Absolute Nucleated RBC (0.00-0.012) x10^3u/L Lymphocytes % (21.8-53.1) % Monocytes % (5.3-12.2) % Eosinophils % (0.8-7.0) % Basophils % (0.2-1.2) % Absolute Granulocytes (1.78-5.38) x10^3/uL Basophils # (0.01-0.08) x10^3/uL D-Dimer (0.0-0.50) mg/L Puncture Site RIGHT RADIAL pCO2 24 L (35-45) mmHg pO2 59 L (75-100) mmHg Base Excess 1.2 (-2.0-2.0) O2 Saturation 91.8 L (94-100) g/dF ABG pH 7.56 H* (7.35-7.45) ABG HCO3 21.5 L (22-28) ABG O2 Sat (Measured) 94.2 L (95-100) % Anthony Test YES A-a Gradient 168 a/A Ratio 0.26 Hemoglobin 15.5 Carboxyhemoglobin 1.7 (0.0-6.9) % THgb Methemoglobin 0.9 L (1.4-1.5) % Temperature 37.0 C POC O2 Flow Rate 36 % Sodium (135-145) mmol/L Potassium 3.9 (3.5-5.1) mmol/L Chloride (98-107) mmol/L Carbon Dioxide (22-30) mmol/L Anion Gap (5-15) MEQ/L BUN (9-20) mg/dL Creatinine (0.66-1.25) mg/dL Estimated GFR ML/MIN Glucose (74-106) mg/dL Lactic Acid 1.5 (0.4-2.0) Calcium (8.4-10.2) mg/dL Magnesium (1.6-2.3) mg/dL Total Bilirubin (0.2-1.3) mg/dL AST (17-59) U/L ALT (0-50) U/L Alkaline Phosphatase (38-126) U/L Troponin I 0.033 (0.000-0.033) ng/mL NT-Pro-B Natriuret Pep (<300) pg/mL Serum Total Protein (6.3-8.2) g/dL Albumin (3.5-5.0) g/dL Urine Color Yellow (Yellow) Urine Appearance Clear (Clear) Urine pH 8.5 A (4.6-8.0) Ur Specific Rector 1.025 (1.005-1.030) Urine Protein 30 (Negative) Urine Glucose (UA) Negative (Negative) mg/dL Urine Ketones Negative (Negative) Urine Blood Negative (Negative) Urine Nitrite Negative (Negative) Urine Bilirubin Negative (Negative) Urine Urobilinogen 1.0 A (0.2) mg/dL Ur Leukocyte Esterase Negative (Negative) U Hyaline Cast (Auto) NONE SEEN (0-2) /LPF Urine Microscopic RBC 0-2 (0-5) /HPF Urine Microscopic WBC 0-2 (0-5) /HPF Ur Epithelial Cells None Seen (None Seen) /HPF Urine Bacteria None Seen (None Seen) /HPF Urine Culture Reflexed NO (NO) Monoscreen (NEGATIVE) Influenza Type A Ag (NEGATIVE) Influenza Type B Ag (NEGATIVE) RSV (PCR) (NEGATIVE) SARS-CoV-2 (PCR) (NEGATIVE) 12/14/23 12/14/23 12/14/23 Range/Units 04:15 04:15 04:15 WBC (4.23-9.07) x10^3/uL RBC (4.63-6.08) x10^6/uL Hgb (13.7-17.5) g/dL Hct (40.1-51.0) % MCV (79.0-92.2) fL MCH (25.7-32.2) pg MCHC (32.3-36.5) g/dL RDW (11.6-14.4) % Plt Count (163-337) x10^3/uL MPV (9.4-12.4) fL Gran % (34.0-67.9) % Immature Gran % (Auto) (0.001-0.429) % Nucleat RBC Rel Count (0.00-0.2) % Eos # (Auto) (0.04-0.54) x10^3/uL Immature Gran # (Auto) (0.001-0.031) x10^3u/L Absolute Lymphs (auto) (1.32-3.57) x10^3/uL Absolute Monos (auto) (0.30-0.82) x10^3/uL Absolute Nucleated RBC (0.00-0.012) x10^3u/L Lymphocytes % (21.8-53.1) % Monocytes % (5.3-12.2) % Eosinophils % (0.8-7.0) % Basophils % (0.2-1.2) % Absolute Granulocytes (1.78-5.38) x10^3/uL Basophils # (0.01-0.08) x10^3/uL D-Dimer 1.19 H* (0.0-0.50) mg/L Puncture Site pCO2 (35-45) mmHg pO2 (75-100) mmHg Base Excess (-2.0-2.0) O2 Saturation (94-100) g/dF ABG pH (7.35-7.45) ABG HCO3 (22-28) ABG O2 Sat (Measured) (95-100) % Anthony Test A-a Gradient a/A Ratio Hemoglobin Carboxyhemoglobin (0.0-6.9) % THgb Methemoglobin (1.4-1.5) % Temperature C POC O2 Flow Rate % Sodium 133 L (135-145) mmol/L Potassium 4.0 (3.5-5.1) mmol/L Chloride 103 (98-107) mmol/L Carbon Dioxide 22 (22-30) mmol/L Anion Gap 11.5 (5-15) MEQ/L BUN 14 (9-20) mg/dL Creatinine 0.64 L (0.66-1.25) mg/dL Estimated GFR 92.8 ML/MIN Glucose 123 H (74-106) mg/dL Lactic Acid (0.4-2.0) Calcium 8.6 (8.4-10.2) mg/dL Magnesium 2.3 (1.6-2.3) mg/dL Total Bilirubin 1.10 (0.2-1.3) mg/dL AST 38 (17-59) U/L ALT 27 (0-50) U/L Alkaline Phosphatase 83 (38-126) U/L Troponin I 0.040 H* (0.000-0.033) ng/mL NT-Pro-B Natriuret Pep (<300) pg/mL Serum Total Protein 7.1 (6.3-8.2) g/dL Albumin 3.7 (3.5-5.0) g/dL Urine Color (Yellow) Urine Appearance (Clear) Urine pH (4.6-8.0) Ur Specific Rector (1.005-1.030) Urine Protein (Negative) Urine Glucose (UA) (Negative) mg/dL Urine Ketones (Negative) Urine Blood (Negative) Urine Nitrite (Negative) Urine Bilirubin (Negative) Urine Urobilinogen (0.2) mg/dL Ur Leukocyte Esterase (Negative) U Hyaline Cast (Auto) (0-2) /LPF Urine Microscopic RBC (0-5) /HPF Urine Microscopic WBC (0-5) /HPF Ur Epithelial Cells (None Seen) /HPF Urine Bacteria (None Seen) /HPF Urine Culture Reflexed (NO) Monoscreen (NEGATIVE) Influenza Type A Ag (NEGATIVE) Influenza Type B Ag (NEGATIVE) RSV (PCR) (NEGATIVE) SARS-CoV-2 (PCR) (NEGATIVE) 12/14/23 12/14/23 12/14/23 Range/Units 04:15 04:00 04:00 WBC 14.6 H (4.23-9.07) x10^3/uL RBC 4.77 (4.63-6.08) x10^6/uL Hgb 15.0 (13.7-17.5) g/dL Hct 43.8 (40.1-51.0) % MCV 91.8 (79.0-92.2) fL MCH 31.4 (25.7-32.2) pg MCHC 34.2 (32.3-36.5) g/dL RDW 14.1 (11.6-14.4) % Plt Count 193 (163-337) x10^3/uL MPV 11.4 (9.4-12.4) fL Gran % 72.6 H (34.0-67.9) % Immature Gran % (Auto) 0.6 H (0.001-0.429) % Nucleat RBC Rel Count 0.0 (0.00-0.2) % Eos # (Auto) 0.07 (0.04-0.54) x10^3/uL Immature Gran # (Auto) 0.09 H (0.001-0.031) x10^3u/L Absolute Lymphs (auto) 2.34 (1.32-3.57) x10^3/uL Absolute Monos (auto) 1.48 H (0.30-0.82) x10^3/uL Absolute Nucleated RBC 0.00 (0.00-0.012) x10^3u/L Lymphocytes % 16.0 L (21.8-53.1) % Monocytes % 10.1 (5.3-12.2) % Eosinophils % 0.5 L (0.8-7.0) % Basophils % 0.2 (0.2-1.2) % Absolute Granulocytes 10.58 H (1.78-5.38) x10^3/uL Basophils # 0.03 (0.01-0.08) x10^3/uL D-Dimer (0.0-0.50) mg/L Puncture Site pCO2 (35-45) mmHg pO2 (75-100) mmHg Base Excess (-2.0-2.0) O2 Saturation (94-100) g/dF ABG pH (7.35-7.45) ABG HCO3 (22-28) ABG O2 Sat (Measured) (95-100) % Anthony Test A-a Gradient a/A Ratio Hemoglobin Carboxyhemoglobin (0.0-6.9) % THgb Methemoglobin (1.4-1.5) % Temperature C POC O2 Flow Rate % Sodium (135-145) mmol/L Potassium (3.5-5.1) mmol/L Chloride (98-107) mmol/L Carbon Dioxide (22-30) mmol/L Anion Gap (5-15) MEQ/L BUN (9-20) mg/dL Creatinine (0.66-1.25) mg/dL Estimated GFR ML/MIN Glucose (74-106) mg/dL Lactic Acid (0.4-2.0) Calcium (8.4-10.2) mg/dL Magnesium (1.6-2.3) mg/dL Total Bilirubin (0.2-1.3) mg/dL AST (17-59) U/L ALT (0-50) U/L Alkaline Phosphatase (38-126) U/L Troponin I (0.000-0.033) ng/mL NT-Pro-B Natriuret Pep (<300) pg/mL Serum Total Protein (6.3-8.2) g/dL Albumin (3.5-5.0) g/dL Urine Color (Yellow) Urine Appearance (Clear) Urine pH (4.6-8.0) Ur Specific Rector (1.005-1.030) Urine Protein (Negative) Urine Glucose (UA) (Negative) mg/dL Urine Ketones (Negative) Urine Blood (Negative) Urine Nitrite (Negative) Urine Bilirubin (Negative) Urine Urobilinogen (0.2) mg/dL Ur Leukocyte Esterase (Negative) U Hyaline Cast (Auto) (0-2) /LPF Urine Microscopic RBC (0-5) /HPF Urine Microscopic WBC (0-5) /HPF Ur Epithelial Cells (None Seen) /HPF Urine Bacteria (None Seen) /HPF Urine Culture Reflexed (NO) Monoscreen NEGATIVE (NEGATIVE) Influenza Type A Ag NEGATIVE (NEGATIVE) Influenza Type B Ag NEGATIVE (NEGATIVE) RSV (PCR) NEGATIVE (NEGATIVE) SARS-CoV-2 (PCR) NEGATIVE (NEGATIVE) 12/14/23 Range/Units 04:00 WBC (4.23-9.07) x10^3/uL RBC (4.63-6.08) x10^6/uL Hgb (13.7-17.5) g/dL Hct (40.1-51.0) % MCV (79.0-92.2) fL MCH (25.7-32.2) pg MCHC (32.3-36.5) g/dL RDW (11.6-14.4) % Plt Count (163-337) x10^3/uL MPV (9.4-12.4) fL Gran % (34.0-67.9) % Immature Gran % (Auto) (0.001-0.429) % Nucleat RBC Rel Count (0.00-0.2) % Eos # (Auto) (0.04-0.54) x10^3/uL Immature Gran # (Auto) (0.001-0.031) x10^3u/L Absolute Lymphs (auto) (1.32-3.57) x10^3/uL Absolute Monos (auto) (0.30-0.82) x10^3/uL Absolute Nucleated RBC (0.00-0.012) x10^3u/L Lymphocytes % (21.8-53.1) % Monocytes % (5.3-12.2) % Eosinophils % (0.8-7.0) % Basophils % (0.2-1.2) % Absolute Granulocytes (1.78-5.38) x10^3/uL Basophils # (0.01-0.08) x10^3/uL D-Dimer (0.0-0.50) mg/L Puncture Site pCO2 (35-45) mmHg pO2 (75-100) mmHg Base Excess (-2.0-2.0) O2 Saturation (94-100) g/dF ABG pH (7.35-7.45) ABG HCO3 (22-28) ABG O2 Sat (Measured) (95-100) % Anthony Test A-a Gradient a/A Ratio Hemoglobin Carboxyhemoglobin (0.0-6.9) % THgb Methemoglobin (1.4-1.5) % Temperature C POC O2 Flow Rate % Sodium (135-145) mmol/L Potassium (3.5-5.1) mmol/L Chloride (98-107) mmol/L Carbon Dioxide (22-30) mmol/L Anion Gap (5-15) MEQ/L BUN (9-20) mg/dL Creatinine (0.66-1.25) mg/dL Estimated GFR ML/MIN Glucose (74-106) mg/dL Lactic Acid (0.4-2.0) Calcium (8.4-10.2) mg/dL Magnesium (1.6-2.3) mg/dL Total Bilirubin (0.2-1.3) mg/dL AST (17-59) U/L ALT (0-50) U/L Alkaline Phosphatase (38-126) U/L Troponin I (0.000-0.033) ng/mL NT-Pro-B Natriuret Pep 1490 (<300) pg/mL Serum Total Protein (6.3-8.2) g/dL Albumin (3.5-5.0) g/dL Urine Color (Yellow) Urine Appearance (Clear) Urine pH (4.6-8.0) Ur Specific Rector (1.005-1.030) Urine Protein (Negative) Urine Glucose (UA) (Negative) mg/dL Urine Ketones (Negative) Urine Blood (Negative) Urine Nitrite (Negative) Urine Bilirubin (Negative) Urine Urobilinogen (0.2) mg/dL Ur Leukocyte Esterase (Negative) U Hyaline Cast (Auto) (0-2) /LPF Urine Microscopic RBC (0-5) /HPF Urine Microscopic WBC (0-5) /HPF Ur Epithelial Cells (None Seen) /HPF Urine Bacteria (None Seen) /HPF Urine Culture Reflexed (NO) Monoscreen (NEGATIVE) Influenza Type A Ag (NEGATIVE) Influenza Type B Ag (NEGATIVE) RSV (PCR) (NEGATIVE) SARS-CoV-2 (PCR) (NEGATIVE) - Progress Progress: improved, re-examined Air Movement: fair Blood Culture(s) Obtained: Yes Counseled pt/family regarding: lab results, diagnosis, rad results <BARBARA JAQUEZ - Last Filed: 12/14/23 06:55> <EDWARD WILKINS - Last Filed: 12/14/23 08:14> - Progress Progress Note: 12/14/23 04:21 My medical decision making and the assignment of moderate to high complexity to this patient's medical issue today is based on review of the patient's past medical history, review of the patient's medication list, review of the patient's drug allergy list, history present illness and physical findings on examination. The workup in this patient includes placement of intravenous line, ABG, troponin level, BNP, twelve-lead EKG, CBC, CMP, viral swabs, monotest, D- dimer level. We will also have respiratory therapy evaluate this patient and provide him with an additional nebulizer treatment. Differential diagnosis includes but not limited to pneumonia, CHF exacerbation, COPD exacerbation, myocardial infarction, arrhythmia issue, pulmonary embolus 12/14/23 06:44 12/14/23 06:46 I am signing over this patient and transferring the care of this patient to Dr. Wilkins at shift change. Dr. Wilkins was advised of the patient's history, physical findings, presenting complaint and results of the current laboratory data results. He will follow-up on pending lab and radiographic studies and make final disposition. (BARBARA JAQUEZ) 12/14/23 08:09 Patient is checked out to me at shift change from Dr. Jaquez with pending CTA chest. CTA showed bilateral consolidative changes and also small subsegmental questionable PE bilateral although the contrast study was not very great. Patient during my evaluation has a sats around 92% on 6 L. I have given him a dose of Rocephin and Zithromax. I have discussed with Dr. Vini Roldan, reviewed history, workup and CT findings, agreed with starting Lovenox. Repeat EKG is sinus tach at a rate of [address] elevation and improvement in second troponin's. I have shared the results of workup with patient and daughter and plan of admission which they understand and agree. 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/EMT - Risk of complications The pt has a high risk of morbidity or mortality based on: Decision regarding hospitilization or escalation of hosp level of care <BARBARA JAQUEZ - Last Filed: 12/14/23 06:55> - Discussion of managment Care discussed with:: hospitalist (Chuckie mott) Reviewed:: Test results Agreed on:: Treatment plan, decision to admit Will see patient: in hospital - Diagnostic Testing Diagnostic test were ordered, analyzed, and reviewed by me: Yes Radiological Interpretation: Reviewed by me, Teleradiologist Report - Risk of complications The pt has a mod risk of morbidity or mortality based on: Need for prescription drug management The pt has a high risk of morbidity or mortality based on: Decision regarding hospitilization or escalation of hosp level of care <EDWARD WILKINS - Last Filed: 12/14/23 08:14> - Departure Critical Care Time: No <BARBARA JAQUEZ - Last Filed: 12/14/23 06:55> - Departure Departure Disposition: In-patient Admission <EDWARD WILKINS - Last Filed: 12/14/23 08:14> - Departure Clinical Impression: Leukocytosis, Pulmonary embolism, Pneumonia Condition: Fair Referrals: TANVI HENRY JR [Primary Care Provider] - Follow up/PCP as directed
[2023-12-14] MEDS ORDERED: solu-MEDROL ONE (04:21)
[2023-12-14] MEDS ORDERED: Sterile H2O 10 ml IJ ONE (04:21)
[2023-12-14] MEDS: solu-MEDROL 125 MG, Sterile H2O 10 ml 2 ML IV ONE (04:22)
[2023-12-14 04:24] LABS: A-aADO2 168; ABG HEMOGLOBIN 15.5; ABG POTASSIUM 3.9 (3.5-5.1); ARTERIAL BLD GAS O2 SATURATION 94.2 % (95-100); ARTERIAL BLOOD GAS BASE EXCESS 1.2 (-2.0-2.0); ARTERIAL BLOOD GAS FIO2 36 %; ARTERIAL BLOOD GAS PCO2 24 mmHg (35-45); ARTERIAL BLOOD GAS PO2 59 mmHg (75-100); CARBOXYHEMOGLOBIN 1.7 % THgb (0.0-6.9); HCO3- 21.5 (22-28); HGB O2 SAT 91.8 g/dF (94-100); Lactic Acid 1.5 (0.4-2.0); Methhemoglobin 0.9 % (1.4-1.5); paO2 pAO1 0.26
[2023-12-14 04:25] LABS: ABG SITE RIGHT RADIAL; ALLEN TEST OK? YES; ARTERIAL BLOOD GAS pH 7.56 (7.35-7.45)
[2023-12-14] MEDS ORDERED: DUONEB 0.5-3 MG/3 ml Neb IH ONE (04:28)
[2023-12-14] MEDS: DUONEB 0.5-3 MG/3 ml Neb IH ONE (04:30)
[2023-12-14] MEDS ORDERED: BACTRIM DS TABLET PO ONE (04:44)
[2023-12-14] MEDS: BACTRIM DS TABLET PO STA (04:45)
[2023-12-14 04:50] LABS: Absolute Neutrophil Ct (ANC) 10.58 x10^3/uL (1.78-5.38); BASOPHIL % 0.2 % (0.2-1.2); Basophil (Absolute #) 0.03 x10^3/uL (0.01-0.08); Eosinophil % 0.5 % (0.8-7.0); Eosinophil (Absolute #) 0.07 x10^3/uL (0.04-0.54); Hematocrit 43.8 % (40.1-51.0); IMMATURE GRAN # 0.09 x10^3u/L (0.001-0.031); IMMATURE GRAN % 0.6 % (0.001-0.429); Lymphocyte (Absolute #) 2.34 x10^3/uL (1.32-3.57); Mean Cell Volume 91.8 fL (79.0-92.2); Mean Corpuscular Hemoglobin 31.4 pg (25.7-32.2); Mean Corpuscular Hgb Concent. 34.2 g/dL (32.3-36.5); Mean Platelet Volume 11.4 fL (9.4-12.4); Monocyte (Absolute #) 1.48 x10^3/uL (0.30-0.82); Monocytes % 10.1 % (5.3-12.2); Neutrophil % 72.6 % (34.0-67.9); Platelet Count 193 x10^3/uL (163-337); Red Blood Count 4.77 x10^6/uL (4.63-6.08); Red Cell Distribution Width 14.1 % (11.6-14.4); White Blood Count 14.6 x10^3/uL (4.23-9.07)
[2023-12-14 05:03] LABS: ALBUMIN 3.7 g/dL (3.5-5.0); ANION GAP 11.5 MEQ/L (5-15); BILIRUBIN,TOTAL 1.1 mg/dL (0.2-1.3); Calcium 8.6 mg/dL (8.4-10.2); Creatinine 1 0.64 mg/dL (0.66-1.25); EST GLOMERULAR FILTRATION RATE 92.8 ML/MIN; MAGNESIUM 2.3 mg/dL (1.6-2.3); Total Protein 7.1 g/dL (6.3-8.2)
[2023-12-14 05:26] LABS: INFLUENZA A NEGATIVE (NEGATIVE); INFLUENZA B NEGATIVE (NEGATIVE); RESPIRATORY SYNCTIAL VIRUS NEGATIVE (NEGATIVE); SARS-CoV-2 Xpert Express NEGATIVE (NEGATIVE)
[2023-12-14 06:15] LABS: Appearance Clear (Clear); Bacteria None Seen /HPF (None Seen); Bilirubin Negative (Negative); Blood Negative (Negative); Epithelial Cells None Seen /HPF (None Seen); Glucose, Urine Negative (Negative); Hyaline Casts NONE SEEN /LPF (0-2); Ketones Negative (Negative); Leukocyte Esterase Negative (Negative); Nitrite Negative (Negative); Ph 8.5 (4.6-8.0); Protein,Urine Dip 30 (Negative); RBC 0-2 /HPF (0-5); Specific Gravity 1.025 (1.005-1.030); WBC 0-2 /HPF (0-5)
[2023-12-14 06:21] LABS: ADD URINE CULTURE? NO (NO)
[2023-12-14] MEDS ORDERED: ROCEPHIN 2 GM/100 ML NACL 2 GM/100 ML IVPB IV ONE (07:30)
[2023-12-14] MEDS: ROCEPHIN 2 GM/100 ML NACL 2 GM/100 ML IVPB IV ONE (07:31)
[2023-12-14] MEDS ORDERED: ENOXAPARIN SODIUM SQ ONE (08:11)
[2023-12-14] MEDS ORDERED: Zithromax 500 MG/ 250 ML NaCl Premix 500 MG/250 ML IVPB IV ONE (08:12)
[2023-12-14 08:14] LABS: INR 0.99 (0.8-3.0); PROTIME 10.8 SECONDS (9.4-12.5); PTT 31.2 SECONDS (25.1-36.5)
[2023-12-14] MEDS: ENOXAPARIN SODIUM SQ ONE (08:14)
[2023-12-14] MEDS: ENOXAPARIN SODIUM SQ STA (08:16)
[2023-12-14] MEDS: Zithromax 500 MG/ 250 ML NaCl Premix 500 MG/250 ML IVPB IV STA (08:16)
--- NOTE | 2023-12-14 10:38 | PCM.HP ---
History of Present Illness - Chief Complaint Chief Complaint: sob Date: 12/14/23 History of Present Illness: Mr. Story is an 83 year old male with a pmhx of COPD (on 4L at baseline), HLD, GERD, HTN, asthma, hypothyroidism, OA, depression, and PTSD who presented to ED 12/14/23 with a two day history of progressive dyspnea. Patient states he originally had COVID about one year ago and several episodes of pneumonia which has left him with residual SOB requiring 4L of oxygen at baseline. 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 Last week he states he was feeling better but the last two days the dyspnea and cough came back making it hard to even ambulate short distances without having to sit down. Denies cp, abdominal pain, ESPINOZA, dizziness, N/V/D. He denies sick contacts. He has been having subjective fevers, nasal congestion, and body aches. Upon arrival to ED patient was tachycardic,mildly hypertensive, tachypneic, and with spo2 @ 91% on 6L oxygen. EKG with sinus tachycardia, HR 108 left axis deviation, No ST elevation. DDimer elevated at 1.19. CTA showed bilateral consolidative changes and also small subsegmental questionable PE bilateral although the contrast study was not very great. There were also findings of bilateral multiple nodules and consolidation with infective vs malignant etiology. Additional findings of a consolidative mass to the RLL. Patient reports that about a year ago he had a bronchoscopy with biopsy with no malignant findings. Scan on 09/09/23 also reviewed showing right hilar soft tissue mass worriesome for malignancy with numerous malignant nodules with suggestion for bronch/PET. Patient states his PCP was reviewing these images for OP workup. We will obtain these records for further review. Lab findings remarkable for leukocytosis with WBC at 14.6, BNP at 1490. Initial troponin at 0.40, now wnl at 0.033. ABGs showing primary chronic respiratory alkalosis. Patient received therapeutic dosing of lovenox , Rocephin, bactrim, azithromycin, and solumedrol in ED. Admission for acute respiratory failure with hypoxia and sepsis secondary to pneumonia/COPD exacerbation, and PE. - Review of Systems Constitutional: Weakness Eyes: No Symptoms Ears, Nose, & Throat: Nose Congestion, Throat Pain Respiratory: Cough, Short Of Breath Cardiac: No Symptoms Abdominal/Gastrointestinal: No Symptoms Genitourinary Symptoms: Hesitancy Musculoskeletal: Back Pain (chronic) Skin: No Symptoms Neurological: No Symptoms Psychological: No Symptoms Endocrine: No Symptoms Hematologic/Lymphatic: No Symptoms Immunological/Allergic: No Symptoms Medications & Allergies Home Medications: Home Medication List Amlodipine Besylate 5 mg [Norvasc 5 mg] 5 mg PO DAILY 01/16/21 [History Confirmed 12/14/23] Celecoxib [Celebrex] 200 mg PO DAILY 01/16/21 [History Confirmed 12/14/23] Famotidine 20 mg [Pepcid 20 MG] 20 mg PO BID 01/16/21 [History Confirmed 12/14/23] Fexofenadine HCl 180 mg PO DAILY PRN PRN 01/16/21 [History Confirmed 12/14/23] Furosemide 40 mg [Lasix 40 MG] 40 mg PO UD 01/16/21 [History Confirmed 12/14/23] Levothyroxine Sodium 100 Mcg [Synthroid 100 Mcg] 200 mcg PO DAILY 01/16/21 [History Confirmed 12/14/23] Montelukast Sodium 10 mg [Singulair 10 MG] 10 mg PO QHS 01/16/21 [History Confirmed 12/14/23] Pravastatin Sodium 20 mg PO QHS 01/16/21 [History Confirmed 12/14/23] Sertraline HCl 50 mg [Zoloft 50 mg Tablet] 200 mg PO DAILY 01/16/21 [History Confirmed 12/14/23] Tamsulosin HCl 0.4 mg PO QHS 01/16/21 [History Confirmed 12/14/23] Tolterodine Tartrate [Tolterodine Tartrate ER] 4 mg PO DAILY 01/16/21 [History Confirmed 12/14/23] lisinopriL [Lisinopril] 10 mg PO DAILY 01/16/21 [History Confirmed 12/14/23] Fluticasone Propion/Salmeterol [Fluticasone-Salmeterol 250-50] 1 each IH WEEKLY 04/23/22 [History Confirmed 12/14/23] Multivitamin 1 each PO DAILY 04/23/22 [History Confirmed 12/14/23] Methocarbamol [Robaxin] 1,000 mg PO BID 08/01/22 [History Confirmed 12/14/23] Pregabalin [Lyrica] 200 mg PO BID 08/01/22 [History Confirmed 12/14/23] Ergocalciferol (Vitamin D2) [Vitamin D2] 1 tab PO WEEKLY 12/14/23 [History Confirmed 12/14/23] Fexofenadine HCl [Franci Allergy] 1 tab PO DAILY 12/14/23 [History Confirmed 12/14/23] Fluticasone Propion/Salmeterol [[place]ela 250-50 Inhub] 2 puffs IH BID 12/14/23 [History Confirmed 12/14/23] Fluticasone Propionate 1 spray IH BID 12/14/23 [History Confirmed 12/14/23] Allergies/Adverse Reactions: Allergies Allergy/AdvReac Type Severity Reaction Status Date / Time hydrochlorothiazide Allergy Verified 12/14/23 03:52 terazosin Allergy Verified 12/14/23 03:52 - Past Medical History Past Medical History: Yes Neurological History: No Pertinent History ENT History: Cataracts, Other Cardiac History: Hypertension Respiratory History: Asthma Endocrine Medical History: Hypothyroidism Musculoskelatal History: Arthritis, Osteoarthritis GI Medical History: No Pertinent History Pyscho-Social History: Depression Male Reproductive Disorders: Prostate Problems Comment: PTST S/P [place]. chronic sinusitis. carpal tunnel. prostatitus - Past Surgical History Past Surgical History: Yes Neuro Surgical History: No Pertinent History Cardiac History: No Pertinent History Respiratory Surgery: No Pertinent History GI Surgical History: Hernia Repair Musculskeletal Surgical Hx: Joint Replacement, Orthopedic Surgery Male Surgical History: Prostate Surgery, Other Other Surgical History: bilat knee. bilateral shoulder. nose surgery- deviated septum. turp X 2. sinus. eye surgery x 3 back surgery,. LOWER BACK - Social History Smoking Status: Former smoker Exposure to second hand smoke: No Alcohol: None Drug Use: none - Social Determinants of Health Will the patient participate in the screening: Yes Do you worry about a steady place to live?: No Do you have any problems with any of the following?: No known problems In the past 12 months,have you had to go without utilities?: No Have you or anyone in your house had to go without enough: No Transportation Issues: No Has anyone in your support network made you feel unsafe?: No - Physical Exam Vital Signs: Vital Signs - 24 hr Temp Pulse Resp BP BP Pulse Ox 12/14/23 09:01 166/97 12/14/23 08:30 97 H 15 148/90 91 L 12/14/23 08:00 97 H 19 132/84 92 L 12/14/23 07:00 101 H 175/100 92 L 12/14/23 06:56 90 L 12/14/23 06:31 109 H 155/98 94 L 12/14/23 06:00 104 H 19 164/95 90 L 12/14/23 05:51 105 H 20 192/103 91 L 12/14/23 05:45 110 H 20 139/88 87 L 12/14/23 05:00 106 H 18 135/93 92 L 12/14/23 04:31 112 H 17 132/88 91 L 12/14/23 04:17 93 L 12/14/23 04:00 106 H 17 150/90 90 L 12/14/23 03:52 99.7 F 114 H 24 133/96 91 L General Appearance: no apparent distress Neurologic Exam: alert, oriented x 3, cooperative Eye Exam: PERRL/EOMI Ears, Nose, Throat Exam: normal ENT inspection Neck Exam: normal inspection Respiratory Exam: diminished breath sounds, wheezing Cardiovascular Exam: regular rate/rhythm, normal heart sounds Gastrointestinal/Abdomen Exam: soft, normal bowel sounds Rectal Exam: deferred Back Exam: normal inspection Extremity Exam: normal inspection Skin Exam: normal color Results - Labs Lab/Micro Results: Lab Results-Last 24 Hours 12/14/23 12/14/23 12/14/23 Range/Units 04:00 04:00 04:00 WBC (4.23-9.07) x10^3/uL RBC (4.63-6.08) x10^6/uL Hgb (13.7-17.5) g/dL Hct (40.1-51.0) % MCV (79.0-92.2) fL MCH (25.7-32.2) pg MCHC (32.3-36.5) g/dL RDW (11.6-14.4) % Plt Count (163-337) x10^3/uL MPV (9.4-12.4) fL Gran % (34.0-67.9) % Immature Gran % (Auto) (0.001-0.429) % Nucleat RBC Rel Count (0.00-0.2) % Eos # (Auto) (0.04-0.54) x10^3/uL Immature Gran # (Auto) (0.001-0.031) x10^3u/L Absolute Lymphs (auto) (1.32-3.57) x10^3/uL Absolute Monos (auto) (0.30-0.82) x10^3/uL Absolute Nucleated RBC (0.00-0.012) x10^3u/L Lymphocytes % (21.8-53.1) % Monocytes % (5.3-12.2) % Eosinophils % (0.8-7.0) % Basophils % (0.2-1.2) % Absolute Granulocytes (1.78-5.38) x10^3/uL Basophils # (0.01-0.08) x10^3/uL PT (9.4-12.5) SECONDS INR (0.8-3.0) APTT (25.1-36.5) SECONDS D-Dimer (0.0-0.50) mg/L Puncture Site pCO2 (35-45) mmHg pO2 (75-100) mmHg Base Excess (-2.0-2.0) O2 Saturation (94-100) g/dF ABG pH (7.35-7.45) ABG HCO3 (22-28) ABG O2 Sat (Measured) (95-100) % Anthony Test A-a Gradient a/A Ratio Hemoglobin Carboxyhemoglobin (0.0-6.9) % THgb Methemoglobin (1.4-1.5) % Temperature C POC O2 Flow Rate % Sodium (135-145) mmol/L Potassium (3.5-5.1) mmol/L Chloride (98-107) mmol/L Carbon Dioxide (22-30) mmol/L Anion Gap (5-15) MEQ/L BUN (9-20) mg/dL Creatinine (0.66-1.25) mg/dL Estimated GFR ML/MIN Glucose (74-106) mg/dL Lactic Acid (0.4-2.0) Calcium (8.4-10.2) mg/dL Magnesium (1.6-2.3) mg/dL Total Bilirubin (0.2-1.3) mg/dL AST (17-59) U/L ALT (0-50) U/L Alkaline Phosphatase (38-126) U/L Troponin I (0.000-0.033) ng/mL NT-Pro-B Natriuret Pep 1490 (<300) pg/mL Serum Total Protein (6.3-8.2) g/dL Albumin (3.5-5.0) g/dL Urine Color (Yellow) Urine Appearance (Clear) Urine pH (4.6-8.0) Ur Specific [place] (1.005-1.030) Urine Protein (Negative) Urine Glucose (UA) (Negative) mg/dL Urine Ketones (Negative) Urine Blood (Negative) Urine Nitrite (Negative) Urine Bilirubin (Negative) Urine Urobilinogen (0.2) mg/dL Ur Leukocyte Esterase (Negative) U Hyaline Cast (Auto) (0-2) /LPF Urine Microscopic RBC (0-5) /HPF Urine Microscopic WBC (0-5) /HPF Ur Epithelial Cells (None Seen) /HPF Urine Bacteria (None Seen) /HPF Urine Culture Reflexed (NO) Monoscreen NEGATIVE (NEGATIVE) Influenza Type A Ag NEGATIVE (NEGATIVE) Influenza Type B Ag NEGATIVE (NEGATIVE) RSV (PCR) NEGATIVE (NEGATIVE) SARS-CoV-2 (PCR) NEGATIVE (NEGATIVE) 12/14/23 12/14/23 12/14/23 Range/Units 04:15 04:15 04:15 WBC 14.6 H (4.23-9.07) x10^3/uL RBC 4.77 (4.63-6.08) x10^6/uL Hgb 15.0 (13.7-17.5) g/dL Hct 43.8 (40.1-51.0) % MCV 91.8 (79.0-92.2) fL MCH 31.4 (25.7-32.2) pg MCHC 34.2 (32.3-36.5) g/dL RDW 14.1 (11.6-14.4) % Plt Count 193 (163-337) x10^3/uL MPV 11.4 (9.4-12.4) fL Gran % 72.6 H (34.0-67.9) % Immature Gran % (Auto) 0.6 H (0.001-0.429) % Nucleat RBC Rel Count 0.0 (0.00-0.2) % Eos # (Auto) 0.07 (0.04-0.54) x10^3/uL Immature Gran # (Auto) 0.09 H (0.001-0.031) x10^3u/L Absolute Lymphs (auto) 2.34 (1.32-3.57) x10^3/uL Absolute Monos (auto) 1.48 H (0.30-0.82) x10^3/uL Absolute Nucleated RBC 0.00 (0.00-0.012) x10^3u/L Lymphocytes % 16.0 L (21.8-53.1) % Monocytes % 10.1 (5.3-12.2) % Eosinophils % 0.5 L (0.8-7.0) % Basophils % 0.2 (0.2-1.2) % Absolute Granulocytes 10.58 H (1.78-5.38) x10^3/uL Basophils # 0.03 (0.01-0.08) x10^3/uL PT (9.4-12.5) SECONDS INR (0.8-3.0) APTT (25.1-36.5) SECONDS D-Dimer (0.0-0.50) mg/L Puncture Site pCO2 (35-45) mmHg pO2 (75-100) mmHg Base Excess (-2.0-2.0) O2 Saturation (94-100) g/dF ABG pH (7.35-7.45) ABG HCO3 (22-28) ABG O2 Sat (Measured) (95-100) % Anthony Test A-a Gradient a/A Ratio Hemoglobin Carboxyhemoglobin (0.0-6.9) % THgb Methemoglobin (1.4-1.5) % Temperature C POC O2 Flow Rate % Sodium 133 L (135-145) mmol/L Potassium 4.0 (3.5-5.1) mmol/L Chloride 103 (98-107) mmol/L Carbon Dioxide 22 (22-30) mmol/L Anion Gap 11.5 (5-15) MEQ/L BUN 14 (9-20) mg/dL Creatinine 0.64 L (0.66-1.25) mg/dL Estimated GFR 92.8 ML/MIN Glucose 123 H (74-106) mg/dL Lactic Acid (0.4-2.0) Calcium 8.6 (8.4-10.2) mg/dL Magnesium 2.3 (1.6-2.3) mg/dL Total Bilirubin 1.10 (0.2-1.3) mg/dL AST 38 (17-59) U/L ALT 27 (0-50) U/L Alkaline Phosphatase 83 (38-126) U/L Troponin I 0.040 H* (0.000-0.033) ng/mL NT-Pro-B Natriuret Pep (<300) pg/mL Serum Total Protein 7.1 (6.3-8.2) g/dL Albumin 3.7 (3.5-5.0) g/dL Urine Color (Yellow) Urine Appearance (Clear) Urine pH (4.6-8.0) Ur Specific [place] (1.005-1.030) Urine Protein (Negative) Urine Glucose (UA) (Negative) mg/dL Urine Ketones (Negative) Urine Blood (Negative) Urine Nitrite (Negative) Urine Bilirubin (Negative) Urine Urobilinogen (0.2) mg/dL Ur Leukocyte Esterase (Negative) U Hyaline Cast (Auto) (0-2) /LPF Urine Microscopic RBC (0-5) /HPF Urine Microscopic WBC (0-5) /HPF Ur Epithelial Cells (None Seen) /HPF Urine Bacteria (None Seen) /HPF Urine Culture Reflexed (NO) Monoscreen (NEGATIVE) Influenza Type A Ag (NEGATIVE) Influenza Type B Ag (NEGATIVE) RSV (PCR) (NEGATIVE) SARS-CoV-2 (PCR) (NEGATIVE) 12/14/23 12/14/23 12/14/23 Range/Units 04:15 04:17 04:41 WBC (4.23-9.07) x10^3/uL RBC (4.63-6.08) x10^6/uL Hgb (13.7-17.5) g/dL Hct (40.1-51.0) % MCV (79.0-92.2) fL MCH (25.7-32.2) pg MCHC (32.3-36.5) g/dL RDW (11.6-14.4) % Plt Count (163-337) x10^3/uL MPV (9.4-12.4) fL Gran % (34.0-67.9) % Immature Gran % (Auto) (0.001-0.429) % Nucleat RBC Rel Count (0.00-0.2) % Eos # (Auto) (0.04-0.54) x10^3/uL Immature Gran # (Auto) (0.001-0.031) x10^3u/L Absolute Lymphs (auto) (1.32-3.57) x10^3/uL Absolute Monos (auto) (0.30-0.82) x10^3/uL Absolute Nucleated RBC (0.00-0.012) x10^3u/L Lymphocytes % (21.8-53.1) % Monocytes % (5.3-12.2) % Eosinophils % (0.8-7.0) % Basophils % (0.2-1.2) % Absolute Granulocytes (1.78-5.38) x10^3/uL Basophils # (0.01-0.08) x10^3/uL PT 10.8 (9.4-12.5) SECONDS INR 0.99 (0.8-3.0) APTT 31.2 (25.1-36.5) SECONDS D-Dimer 1.19 H* (0.0-0.50) mg/L Puncture Site RIGHT RADIAL pCO2 24 L (35-45) mmHg pO2 59 L (75-100) mmHg Base Excess 1.2 (-2.0-2.0) O2 Saturation 91.8 L (94-100) g/dF ABG pH 7.56 H* (7.35-7.45) ABG HCO3 21.5 L (22-28) ABG O2 Sat (Measured) 94.2 L (95-100) % Anthony Test YES A-a Gradient 168 a/A Ratio 0.26 Hemoglobin 15.5 Carboxyhemoglobin 1.7 (0.0-6.9) % THgb Methemoglobin 0.9 L (1.4-1.5) % Temperature 37.0 C POC O2 Flow Rate 36 % Sodium (135-145) mmol/L Potassium 3.9 (3.5-5.1) mmol/L Chloride (98-107) mmol/L Carbon Dioxide (22-30) mmol/L Anion Gap (5-15) MEQ/L BUN (9-20) mg/dL Creatinine (0.66-1.25) mg/dL Estimated GFR ML/MIN Glucose (74-106) mg/dL Lactic Acid 1.5 (0.4-2.0) Calcium (8.4-10.2) mg/dL Magnesium (1.6-2.3) mg/dL Total Bilirubin (0.2-1.3) mg/dL AST (17-59) U/L ALT (0-50) U/L Alkaline Phosphatase (38-126) U/L Troponin I (0.000-0.033) ng/mL NT-Pro-B Natriuret Pep (<300) pg/mL Serum Total Protein (6.3-8.2) g/dL Albumin (3.5-5.0) g/dL Urine Color (Yellow) Urine Appearance (Clear) Urine pH (4.6-8.0) Ur Specific [place] (1.005-1.030) Urine Protein (Negative) Urine Glucose (UA) (Negative) mg/dL Urine Ketones (Negative) Urine Blood (Negative) Urine Nitrite (Negative) Urine Bilirubin (Negative) Urine Urobilinogen (0.2) mg/dL Ur Leukocyte Esterase (Negative) U Hyaline Cast (Auto) (0-2) /LPF Urine Microscopic RBC (0-5) /HPF Urine Microscopic WBC (0-5) /HPF Ur Epithelial Cells (None Seen) /HPF Urine Bacteria (None Seen) /HPF Urine Culture Reflexed (NO) Monoscreen (NEGATIVE) Influenza Type A Ag (NEGATIVE) Influenza Type B Ag (NEGATIVE) RSV (PCR) (NEGATIVE) SARS-CoV-2 (PCR) (NEGATIVE) 12/14/23 12/14/23 Range/Units 05:51 07:30 WBC (4.23-9.07) x10^3/uL RBC (4.63-6.08) x10^6/uL Hgb (13.7-17.5) g/dL Hct (40.1-51.0) % MCV (79.0-92.2) fL MCH (25.7-32.2) pg MCHC (32.3-36.5) g/dL RDW (11.6-14.4) % Plt Count (163-337) x10^3/uL MPV (9.4-12.4) fL Gran % (34.0-67.9) % Immature Gran % (Auto) (0.001-0.429) % Nucleat RBC Rel Count (0.00-0.2) % Eos # (Auto) (0.04-0.54) x10^3/uL Immature Gran # (Auto) (0.001-0.031) x10^3u/L Absolute Lymphs (auto) (1.32-3.57) x10^3/uL Absolute Monos (auto) (0.30-0.82) x10^3/uL Absolute Nucleated RBC (0.00-0.012) x10^3u/L Lymphocytes % (21.8-53.1) % Monocytes % (5.3-12.2) % Eosinophils % (0.8-7.0) % Basophils % (0.2-1.2) % Absolute Granulocytes (1.78-5.38) x10^3/uL Basophils # (0.01-0.08) x10^3/uL PT (9.4-12.5) SECONDS INR (0.8-3.0) APTT (25.1-36.5) SECONDS D-Dimer (0.0-0.50) mg/L Puncture Site pCO2 (35-45) mmHg pO2 (75-100) mmHg Base Excess (-2.0-2.0) O2 Saturation (94-100) g/dF ABG pH (7.35-7.45) ABG HCO3 (22-28) ABG O2 Sat (Measured) (95-100) % Anthony Test A-a Gradient a/A Ratio Hemoglobin Carboxyhemoglobin (0.0-6.9) % THgb Methemoglobin (1.4-1.5) % Temperature C POC O2 Flow Rate % Sodium (135-145) mmol/L Potassium (3.5-5.1) mmol/L Chloride (98-107) mmol/L Carbon Dioxide (22-30) mmol/L Anion Gap (5-15) MEQ/L BUN (9-20) mg/dL Creatinine (0.66-1.25) mg/dL Estimated GFR ML/MIN Glucose (74-106) mg/dL Lactic Acid (0.4-2.0) Calcium (8.4-10.2) mg/dL Magnesium (1.6-2.3) mg/dL Total Bilirubin (0.2-1.3) mg/dL AST (17-59) U/L ALT (0-50) U/L Alkaline Phosphatase (38-126) U/L Troponin I 0.033 (0.000-0.033) ng/mL NT-Pro-B Natriuret Pep (<300) pg/mL Serum Total Protein (6.3-8.2) g/dL Albumin (3.5-5.0) g/dL Urine Color Yellow (Yellow) Urine Appearance Clear (Clear) Urine pH 8.5 A (4.6-8.0) Ur Specific [place] 1.025 (1.005-1.030) Urine Protein 30 (Negative) Urine Glucose (UA) Negative (Negative) mg/dL Urine Ketones Negative (Negative) Urine Blood Negative (Negative) Urine Nitrite Negative (Negative) Urine Bilirubin Negative (Negative) Urine Urobilinogen 1.0 A (0.2) mg/dL Ur Leukocyte Esterase Negative (Negative) U Hyaline Cast (Auto) NONE SEEN (0-2) /LPF Urine Microscopic RBC 0-2 (0-5) /HPF Urine Microscopic WBC 0-2 (0-5) /HPF Ur Epithelial Cells None Seen (None Seen) /HPF Urine Bacteria None Seen (None Seen) /HPF Urine Culture Reflexed NO (NO) Monoscreen (NEGATIVE) Influenza Type A Ag (NEGATIVE) Influenza Type B Ag (NEGATIVE) RSV (PCR) (NEGATIVE) SARS-CoV-2 (PCR) (NEGATIVE) - Radiology Impressions Radiology Exams & Impressions: Radiology Procedures Category Date Time Status CHEST WITH CONTRAST [CT] Stat Exams 12/14/23 05:07 Taken - Other Procedures and Tests Respiratory Therapy 12/14/23 04:29 Respiratory Therapy Assessment DAILY 12/14/23 09:46 Oxygen Nasal Cannula 6 lpm Respiratory Therapy Consult ONCE Assessment/Plan (1) Sepsis Current Visit: Yes Status: Acute Assessment & Plan: -Secondary to pneumonia -Meets criteria with WBC at 14.6, tachycardia, tachypnea, and known source of infection (pneumonia) -LA WNL -PCT, blood cultures, sputum cultures pending -Ceftriaxone/azithromycin -in ED, will continue with zosyn (2) Acute respiratory failure with hypoxia Current Visit: Yes Status: Acute Assessment & Plan: -Multifactoral with pneumonia/PE/COPD exacerbation -RT eval with NEB/bronchodilators -On 6L oxygen - baseline 4L - supplemental oxygen with spo2 goal >91% -Ceftriaxone/azithromycin/solu-medrol Code(s): J96.01 - ACUTE RESPIRATORY FAILURE WITH HYPOXIA (3) Pneumonia Current Visit: Yes Status: Acute Assessment & Plan: -see ARF/Sepsis Code(s): J18.9 - PNEUMONIA, UNSPECIFIED ORGANISM (4) COPD exacerbation Current Visit: Yes Status: Acute Assessment & Plan: -see ARF Code(s): J44.1 - CHRONIC OBSTRUCTIVE PULMONARY DISEASE W (ACUTE) EXACERBATION (5) Pulmonary embolism Current Visit: Yes Status: Acute Assessment & Plan: -Therapeutic dosing lovenox x 24 hours - then eliquis 10mg po bid x 7 days, then 5mg po bid there after (pending chart review of bronch, may keep on lovenox if patient needs bronch) Code(s): I26.99 - OTHER PULMONARY EMBOLISM WITHOUT ACUTE COR PULMONALE (6) HLD (hyperlipidemia) Current Visit: Yes Status: Acute Assessment & Plan: -continue statin Code(s): E78.5 - HYPERLIPIDEMIA, UNSPECIFIED (7) HTN (hypertension) Current Visit: Yes Status: Acute Assessment & Plan: -stable continue home medications Code(s): I10 - ESSENTIAL (PRIMARY) HYPERTENSION (8) Abnormal finding on imaging Current Visit: Yes Status: Acute Assessment & Plan: -CTA showed bilateral consolidative changes and also small subsegmental questionable PE bilateral although the contrast study was not very great. There were also findings of bilateral multiple nodules and consolidation with infective vs malignant etiology. Additional findings of a consolidative mass to the RLL. Patient reports that about a year ago he had a bronchoscopy with biopsy with no malignant findings. Scan on 09/09/23 also reviewed showing right hilar soft tissue mass worriesome for malignancy with numerous malignant nodules with suggestion for bronch/PET. Patient states his PCP was reviewing these images for OP workup. We will obtain these records for further review. -consider pulm consult Code(s): R93.89 - ABNORMAL FINDINGS ON DX IMAGING OF OTH BODY STRUCTURES (9) BPH (benign prostatic hyperplasia) Current Visit: Yes Status: Acute Assessment & Plan: -continue flomax/detrol VTE: lovenox PPI: protonix Dispo: 2-3 days Code status: full code Code(s): N40.0 - BENIGN PROSTATIC HYPERPLASIA WITHOUT LOWER URINRY TRACT SYMP
[2023-12-14] MEDS ORDERED: TYLENOL 325 MG PO PRN (10:54)
[2023-12-14] MEDS ORDERED: Zofran 4 MG/2 ML VIAL IV PRN (10:54)
[2023-12-14] MEDS ORDERED: Lotrisone Cream TOP PRN (10:59)
[2023-12-14] MEDS ORDERED: NORCO 10-325 MG PO PRN (10:59)
[2023-12-14] MEDS: DUONEB 0.5-3 MG/3 ml Neb IH SCH (11:48)
[2023-12-14] MEDS: Zestril 10 MG PO SCH (13:42)
[2023-12-14] MEDS: celeBREX 100 MG PO SCH (13:43)
[2023-12-14] MEDS: ZOLOFT 50 MG TABLET PO SCH (13:43)
[2023-12-14] MEDS: NORVASC 5 MG PO SCH (13:43)
[2023-12-14] MEDS: SYNTHROID 125 MCG PO SCH (13:43)
[2023-12-14] MEDS: Protonix 40MG Tablet PO SCH (13:43)
[2023-12-14] MEDS: Ditropan XL 5 MG PO SCH (13:43)
[2023-12-14] MEDS: LYRICA 75 MG CAP PO SCH (13:43)
[2023-12-14] MEDS: Pepcid 20 MG PO SCH (13:43)
[2023-12-14] MEDS: Lasix 40 MG PO SCH (13:44)
[2023-12-14] MEDS: VITAMIN D2 PO SCH (13:45)
[2023-12-14] MEDS: Mucinex 600MG ER Tabs PO SCH (13:47)
[2023-12-14] MEDS: PIPERACILLIN/TAZOBACTAM 3.375 GM in Sodium Chloride 100ML MINI-BAG PLUS 100 ML IV SCH (13:48)
[2023-12-14] MEDS: solu-MEDROL 40 MG, Sterile H2O 10 ml 1 ML IV SCH (13:48)
[2023-12-14] MEDS: Flomax 0.4 MG PO SCH (19:17)
[2023-12-14] MEDS: Robaxin PO SCH (21:31)
[2023-12-14] MEDS: ZOCOR 20MG PO SCH (21:32)
[2023-12-14] MEDS: Singulair 10 MG PO SCH (21:32)
[2023-12-14] MEDS: ENOXAPARIN SODIUM SQ SCH (21:33)
[2023-12-14] MEDS ORDERED: NON-FORMULARY ITEM (Pravastatin Sodium [Pravastatin Sodium] 20 MG Tablet) PO SCH (22:00)
[2023-12-14] MEDS ORDERED: NON-FORMULARY ITEM (Celecoxib [Celebrex] 200 MG Capsule) PO SCH (22:00)
[2023-12-14] MEDS ORDERED: FLUTICASONE-SALMETEROL 250-50 IH SCH (22:00)
[2023-12-14] MEDS ORDERED: ENOXAPARIN SODIUM SQ SCH (22:00)
[2023-12-14] MEDS ORDERED: NON-FORMULARY ITEM (Fluticasone Propionate [Fluticasone Propionate] 50 MCG Blst.W.Dev) IH SCH (22:00)
[2023-12-15] MEDS ORDERED: Flonase NASAL NS ONE (01:59)
[2023-12-15] MEDS: Flonase NASAL NS SCH ×2 (02:04→10:05)
--- NOTE | 2023-12-15 05:08 | PCM.NOTE ---
Date and Time: 12/15/23 0508 Subjective Assessment: Mr. Story is an 83 year old male with a pmhx of COPD (on 4L at baseline), HLD, GERD, HTN, asthma, hypothyroidism, OA, depression, and PTSD who presented to ED 12/14/23 with a two day history of progressive dyspnea. Patient states he originally had COVID about one year ago and several episodes of pneumonia which has left him with residual SOB requiring 4L of oxygen at baseline. 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 Last week he states he was feeling better but the last two days the dyspnea and cough came back making it hard to even ambulate short distances without having to sit down. Denies cp, abdominal pain, ESPINOZA, dizziness, N/V/D. He denies sick contacts. He has been having subjective fevers, nasal congestion, and body aches. Upon arrival to ED patient was tachycardic,mildly hypertensive, tachypneic, and with spo2 @ 91% on 6L oxygen. EKG with sinus tachycardia, HR 108 left axis deviation, No ST elevation. DDimer elevated at 1.19. CTA showed bilateral consolidative changes and also small subsegmental questionable PE bilateral alth ough the contrast study was not very great. There were also findings of bilateral multiple nodules and consolidation with infective vs malignant etiology. Additional findings of a consolidative mass to the RLL. Patient reports that about a year ago he had a bronchoscopy with biopsy with no malignant findings. Scan on 09/09/23 also reviewed showing right hilar soft tissue mass worriesome for malignancy with numerous malignant nodules with suggestion for bronch/PET. Patient states his PCP was reviewing these images for OP workup. We will obtain these records for further review. Lab findings rem arkable for leukocytosis with WBC at 14.6, BNP at 1490. Initial troponin at 0.40, now wnl at 0.033. ABGs showing primary chronic respiratory alkalosis. Patient received therapeutic dosing of lovenox , Rocephin, bactrim, azithromycin, and solumedrol in ED. Admission for acute respiratory failure with hypoxia and sepsis secondary to pneumonia/COPD exacerbation, and PE. 12/15/23: Met with patient bedside. Endorses improvement of dyspnea. Remains weak. Labs improving. Afebrile overnight. Lung sound diminished with exp wheezing. Still requiring 6L oxygen. Plan for continued abx/steroid as well as treatment for PE with lovenox until it is determined if bronch is needed. Records from [place] pending. Will consult pulm for imaging concerns. - Review of Systems Constitutional: Weakness Ears, Nose, & Throat: Nose Congestion Respiratory: Cough, Short Of Breath Cardiac: No Symptoms Abdominal/Gastrointestinal: No Symptoms Genitourinary Symptoms: No Symptoms Musculoskeletal: No Symptoms Skin: No Symptoms Neurological: No Symptoms Psychological: No Symptoms Endocrine: No Symptoms Hematologic/Lymphatic: No Symptoms Immunological/Allergic: No Symptoms Objective Exam General Appearance: no apparent distress Neurologic Exam: alert, oriented x 3, cooperative Skin Exam: normal color Eye Exam: PERRL Ears, Nose, Throat Exam: normal ENT inspection Neck Exam: normal inspection Respiratory Exam: diminished breath sounds, wheezing Cardiovascular Exam: regular rate/rhythm, normal heart sounds Gastrointestinal/Abdomen Exam: soft, normal bowel sounds Extremity Exam: normal inspection Back Exam: normal inspection Objective Data Vital Signs: Vital Signs - 24 hr Temp Pulse Resp BP BP Pulse Ox 12/15/23 04:00 97.6 F 84 20 102/59 93 L 12/15/23 01:37 78 16 94 L 12/14/23 23:42 97.6 F 85 20 100/59 94 L 12/14/23 19:39 97.8 F 87 20 126/70 91 L 12/14/23 19:09 85 16 93 L 12/14/23 16:00 97.1 F 89 16 138/83 94 L 12/14/23 11:54 89 20 92 L 12/14/23 11:02 92 L 12/14/23 10:04 97.6 F 83 15 147/82 92 L 12/14/23 09:46 92 L 12/14/23 09:01 166/97 12/14/23 08:30 97 H 15 148/90 91 L 12/14/23 08:00 97 H 19 132/84 92 L 12/14/23 07:00 101 H 175/100 92 L 12/14/23 06:56 90 L 12/14/23 06:31 109 H 155/98 94 L 12/14/23 06:00 104 H 19 164/95 90 L 12/14/23 05:51 105 H 20 192/103 91 L 12/14/23 05:45 110 H 20 139/88 87 L Pain Assessment - Last Documented Pain Intensity 0 Intake and Output: Intake & Output 12/12/23 12/13/23 12/14/23 12/15/23 11:59 11:59 11:59 11:59 Intake Total 1482 Output Total 300 Balance 1182 Weight 92.5 kg Lab Results: Lab Results-Last 24 Hours 12/14/23 12/14/23 12/14/23 Range/Units 04:00 04:00 04:15 PT (9.4-12.5) SECONDS INR (0.8-3.0) APTT (25.1-36.5) SECONDS Troponin I 0.040 H* (0.000-0.033) ng/mL Procalcitonin (0.030-0.080) ng/mL Urine Color (Yellow) Urine Appearance (Clear) Urine pH (4.6-8.0) Ur Specific Ida (1.005-1.030) Urine Protein (Negative) Urine Glucose (UA) (Negative) mg/dL Urine Ketones (Negative) Urine Blood (Negative) Urine Nitrite (Negative) Urine Bilirubin (Negative) Urine Urobilinogen (0.2) mg/dL Ur Leukocyte Esterase (Negative) U Hyaline Cast (Auto) (0-2) /LPF Urine Microscopic RBC (0-5) /HPF Urine Microscopic WBC (0-5) /HPF Ur Epithelial Cells (None Seen) /HPF Urine Bacteria (None Seen) /HPF Urine Culture Reflexed (NO) Monoscreen NEGATIVE (NEGATIVE) Influenza Type A Ag NEGATIVE (NEGATIVE) Influenza Type B Ag NEGATIVE (NEGATIVE) RSV (PCR) NEGATIVE (NEGATIVE) SARS-CoV-2 (PCR) NEGATIVE (NEGATIVE) 12/14/23 12/14/23 12/14/23 Range/Units 04:41 05:51 07:30 PT 10.8 (9.4-12.5) SECONDS INR 0.99 (0.8-3.0) APTT 31.2 (25.1-36.5) SECONDS Troponin I 0.033 (0.000-0.033) ng/mL Procalcitonin (0.030-0.080) ng/mL Urine Color Yellow (Yellow) Urine Appearance Clear (Clear) Urine pH 8.5 A (4.6-8.0) Ur Specific Ida 1.025 (1.005-1.030) Urine Protein 30 (Negative) Urine Glucose (UA) Negative (Negative) mg/dL Urine Ketones Negative (Negative) Urine Blood Negative (Negative) Urine Nitrite Negative (Negative) Urine Bilirubin Negative (Negative) Urine Urobilinogen 1.0 A (0.2) mg/dL Ur Leukocyte Esterase Negative (Negative) U Hyaline Cast (Auto) NONE SEEN (0-2) /LPF Urine Microscopic RBC 0-2 (0-5) /HPF Urine Microscopic WBC 0-2 (0-5) /HPF Ur Epithelial Cells None Seen (None Seen) /HPF Urine Bacteria None Seen (None Seen) /HPF Urine Culture Reflexed NO (NO) Monoscreen (NEGATIVE) Influenza Type A Ag (NEGATIVE) Influenza Type B Ag (NEGATIVE) RSV (PCR) (NEGATIVE) SARS-CoV-2 (PCR) (NEGATIVE) 12/14/23 12/14/23 Range/Units 12:31 12:31 PT (9.4-12.5) SECONDS INR (0.8-3.0) APTT (25.1-36.5) SECONDS Troponin I 0.016 (0.000-0.033) ng/mL Procalcitonin 0.100 H (0.030-0.080) ng/mL Urine Color (Yellow) Urine Appearance (Clear) Urine pH (4.6-8.0) Ur Specific Ida (1.005-1.030) Urine Protein (Negative) Urine Glucose (UA) (Negative) mg/dL Urine Ketones (Negative) Urine Blood (Negative) Urine Nitrite (Negative) Urine Bilirubin (Negative) Urine Urobilinogen (0.2) mg/dL Ur Leukocyte Esterase (Negative) U Hyaline Cast (Auto) (0-2) /LPF Urine Microscopic RBC (0-5) /HPF Urine Microscopic WBC (0-5) /HPF Ur Epithelial Cells (None Seen) /HPF Urine Bacteria (None Seen) /HPF Urine Culture Reflexed (NO) Monoscreen (NEGATIVE) Influenza Type A Ag (NEGATIVE) Influenza Type B Ag (NEGATIVE) RSV (PCR) (NEGATIVE) SARS-CoV-2 (PCR) (NEGATIVE) Radiology Exams: Radiology Procedures Category Date Time Status CHEST WITH CONTRAST [CT] Stat Exams 12/14/23 05:07 Taken Multi-Disciplinary Progress Notes: Multi-Disciplinary Progress Notes 12/14/23 06:15 (created 12/14/23 07:46) Respiratory Note by Marylou Nesbitt Nurse request patient to have an oxymizer. O2 sat 90% on 6lpm NC. Placed patient on 6lpm per Oxymizer and patient's O2 sat 90% Initialized on 12/14/23 07:46 - END OF NOTE Assessment/Plan (1) Sepsis Current Visit: Yes Status: Acute Assessment & Plan: -Secondary to pneumonia -Meets criteria with WBC at 14.6, tachycardia, tachypnea, and known source of infection (pneumonia) -LA WNL -PCT, blood cultures, sputum cultures pending -Ceftriaxone/azithromycin -in ED, will continue with zosyn 12/15/23: -continue Zosyn -WBC trend improving 12.4<14.6 -PCT elevated at 0.100 (2) Acute respiratory failure with hypoxia Current Visit: Yes Status: Acute Assessment & Plan: -Multifactoral with pneumonia/PE/COPD exacerbation -RT eval with NEB/bronchodilators -On 6L oxygen - baseline 4L - supplemental oxygen with spo2 goal >91% -zosyn/solu-medrol Code(s): J96.01 - ACUTE RESPIRATORY FAILURE WITH HYPOXIA (3) Pneumonia Current Visit: Yes Status: Acute Assessment & Plan: -see ARF/Sepsis Code(s): J18.9 - PNEUMONIA, UNSPECIFIED ORGANISM (4) COPD exacerbation Current Visit: Yes Status: Acute Assessment & Plan: -see ARF Code(s): J44.1 - CHRONIC OBSTRUCTIVE PULMONARY DISEASE W (ACUTE) EXACERBATION (5) Pulmonary embolism Current Visit: Yes Status: Acute Assessment & Plan: -Therapeutic dosing lovenox x 24 hours - then eliquis 10mg po bid x 7 days, then 5mg po bid there after (pending chart review of bronch, may keep on lovenox if patient needs bronch) Code(s): I26.99 - OTHER PULMONARY EMBOLISM WITHOUT ACUTE COR PULMONALE (6) HLD (hyperlipidemia) Current Visit: Yes Status: Acute Assessment & Plan: -continue statin Code(s): E78.5 - HYPERLIPIDEMIA, UNSPECIFIED (7) HTN (hypertension) Current Visit: Yes Status: Acute Assessment & Plan: -stable continue home medications Code(s): I10 - ESSENTIAL (PRIMARY) HYPERTENSION (8) Abnormal finding on imaging Current Visit: Yes Status: Acute Assessment & Plan: -CTA showed bilateral consolidative changes and also small subsegmental questionable PE bilateral although the contrast study was not very great. There were also findings of bilateral multiple nodules and consolidation with infective vs malignant etiology. Additional findings of a consolidative mass to the RLL. Patient reports that about a year ago he had a bronchoscopy with biopsy with no malignant findings. Scan on 09/09/23 also reviewed showing right hilar soft tissue mass worriesome for malignancy with numerous malignant nodules with suggestion for bronch/PET. Patient states his PCP was reviewing these images for OP workup. We will obtain these records for further review. 12/15/23: -Records from [place] pending -Pulm consult Code(s): R93.89 - ABNORMAL FINDINGS ON DX IMAGING OF OTH BODY STRUCTURES (9) BPH (benign prostatic hyperplasia) Current Visit: Yes Status: Acute Assessment & Plan: -continue flomax/detrol VTE: lovenox PPI: protonix Dispo: 2-3 days (2) Acute respiratory failure with hypoxia Current Visit: Yes Status: Acute Code(s): J96.01 - ACUTE RESPIRATORY FAILURE WITH HYPOXIA (3) Pneumonia Current Visit: Yes Status: Acute Code(s): J18.9 - PNEUMONIA, UNSPECIFIED ORGANISM (4) COPD exacerbation Current Visit: Yes Status: Acute Code(s): J44.1 - CHRONIC OBSTRUCTIVE PULMONARY DISEASE W (ACUTE) EXACERBATION (5) Pulmonary embolism Current Visit: Yes Status: Acute Code(s): I26.99 - OTHER PULMONARY EMBOLISM WITHOUT ACUTE COR PULMONALE (6) HLD (hyperlipidemia) Current Visit: Yes Status: Acute Code(s): E78.5 - HYPERLIPIDEMIA, UNSPECIFIED (7) HTN (hypertension) Current Visit: Yes Status: Acute Code(s): I10 - ESSENTIAL (PRIMARY) HYPERTENSION (8) Abnormal finding on imaging Current Visit: Yes Status: Acute Code(s): R93.89 - ABNORMAL FINDINGS ON DX IMAGING OF OTH BODY STRUCTURES (9) BPH (benign prostatic hyperplasia) Current Visit: Yes Status: Acute Code(s): N40.0 - BENIGN PROSTATIC HYPERPLASIA WITHOUT LOWER URINRY TRACT SYMP
[2023-12-15 05:31] LABS: Absolute Neutrophil Ct (ANC) 10.98 x10^3/uL (1.78-5.38); BASOPHIL % 0.1 % (0.2-1.2); Basophil (Absolute #) 0.01 x10^3/uL (0.01-0.08); Eosinophil % 0.2 % (0.8-7.0); Eosinophil (Absolute #) 0.02 x10^3/uL (0.04-0.54); Hematocrit 39.8 % (40.1-51.0); Hemoglobin 13.3 g/dL (13.7-17.5); IMMATURE GRAN % 0.8 % (0.001-0.429); Lymphocyte (Absolute #) 0.68 x10^3/uL (1.32-3.57); Lymphocytes % 5.5 % (21.8-53.1); Mean Cell Volume 93.2 fL (79.0-92.2); Mean Corpuscular Hemoglobin 31.1 pg (25.7-32.2); Mean Corpuscular Hgb Concent. 33.4 g/dL (32.3-36.5); Monocyte (Absolute #) 0.64 x10^3/uL (0.30-0.82); Monocytes % 5.1 % (5.3-12.2); Neutrophil % 88.3 % (34.0-67.9); Platelet Count 180 x10^3/uL (163-337); Red Blood Count 4.27 x10^6/uL (4.63-6.08); Red Cell Distribution Width 14.3 % (11.6-14.4); White Blood Count 12.4 x10^3/uL (4.23-9.07)
[2023-12-15 05:55] LABS: ALBUMIN 3.1 g/dL (3.5-5.0); ANION GAP 10.1 MEQ/L (5-15); BILIRUBIN,TOTAL 0.7 mg/dL (0.2-1.3); Calcium 8.3 mg/dL (8.4-10.2); Creatinine 1 0.81 mg/dL (0.66-1.25); EST GLOMERULAR FILTRATION RATE 86.4 ML/MIN; Potassium 4.6 mmol/L (3.5-5.1); Total Protein 5.8 g/dL (6.3-8.2)
[2023-12-15] MEDS: Advair Hfa 115/21 Common canister IH SCH (08:03)
[2023-12-15 09:32] LABS: Appearance Clear (Clear); Bacteria None Seen /HPF (None Seen); Bilirubin Negative (Negative); Blood Negative (Negative); Epithelial Cells None Seen /HPF (None Seen); Glucose, Urine Negative (Negative); Hyaline Casts NONE SEEN /LPF (0-2); Ketones Trace (Negative); Leukocyte Esterase Negative (Negative); Nitrite Negative (Negative); Protein,Urine Dip 30 (Negative); RBC 0-2 /HPF (0-5); Specific Gravity >=1.030 (1.005-1.030); WBC 0-2 /HPF (0-5)
[2023-12-15 09:45] LABS: ADD URINE CULTURE? NO (NO)
[2023-12-15] MEDS: CLARITIN 10 MG PO SCH (09:58)
[2023-12-15] MEDS ORDERED: NON-FORMULARY ITEM (Tolterodine Tartrate [Tolterodine Tartrate Er] 4 MG Cap.Er.24h) PO SCH (10:00)
[2023-12-15] MEDS ORDERED: NON-FORMULARY ITEM (Fexofenadine Hcl [Allegra Allergy] 180 MG Tablet) PO SCH (10:00)
[2023-12-16 04:40] LABS: BASOPHIL % 0.1 % (0.2-1.2); Basophil (Absolute #) 0.01 x10^3/uL (0.01-0.08); Eosinophil % 0.1 % (0.8-7.0); Eosinophil (Absolute #) 0.01 x10^3/uL (0.04-0.54); Hematocrit 36.9 % (40.1-51.0); Hemoglobin 12.3 g/dL (13.7-17.5); IMMATURE GRAN # 0.11 x10^3u/L (0.001-0.031); IMMATURE GRAN % 0.8 % (0.001-0.429); Lymphocyte (Absolute #) 0.66 x10^3/uL (1.32-3.57); Mean Cell Volume 94.1 fL (79.0-92.2); Mean Corpuscular Hemoglobin 31.4 pg (25.7-32.2); Mean Corpuscular Hgb Concent. 33.3 g/dL (32.3-36.5); Mean Platelet Volume 11.4 fL (9.4-12.4); Monocyte (Absolute #) 0.85 x10^3/uL (0.30-0.82); Monocytes % 6.5 % (5.3-12.2); Neutrophil % 87.5 % (34.0-67.9); Platelet Count 176 x10^3/uL (163-337); Red Blood Count 3.92 x10^6/uL (4.63-6.08); Red Cell Distribution Width 14.5 % (11.6-14.4); White Blood Count 13.1 x10^3/uL (4.23-9.07)
[2023-12-16 05:11] LABS: ALBUMIN 3.2 g/dL (3.5-5.0); ANION GAP 13.5 MEQ/L (5-15); BILIRUBIN,TOTAL 0.5 mg/dL (0.2-1.3); Calcium 8.1 mg/dL (8.4-10.2); Creatinine 1 0.92 mg/dL (0.66-1.25); EST GLOMERULAR FILTRATION RATE 81.5 ML/MIN; Potassium 4.3 mmol/L (3.5-5.1); Total Protein 6.1 g/dL (6.3-8.2)
--- NOTE | 2023-12-16 10:53 | PCM.DS ---
Discharge Summary Date of Admission: 12/14/23 09:15 Date of Discharge: 12/16/23 Admitting Physician: CRISTIAN OJEDA Consults: Consults on Case 12/15/23 09:40 Consult Pulmonology ROUTINE Primary Care Provider: TANVI HENRY JR Allergies Allergies hydrochlorothiazide Allergy (Verified 12/14/23 03:52) terazosin Allergy (Verified 12/14/23 03:52) Hospital Summary - Hospital Course Hospital Course: 12/16/23 Mr. Story is an 83 year old male with a pmhx of COPD (on 4L at baseline), H LD, GERD, HTN, asthma, hypothyroidism, OA, depression, and PTSD who presented to ED 12/14/23 with a two day history of progressive dyspnea. Patient states he originally had COVID about one year ago and several episodes of pneumonia which has left him with residual SOB requiring 4L of oxygen at baseline. 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 Last week he states he was feeling better but the last two days the dyspnea and cough came back making it hard to even ambulate short distances without having to sit down. Denies cp, abdominal pain, ESPINOZA, dizziness, N/V/D. He denies sick contacts. He has been having subjective fevers, nasal congestion, and body aches. - Vitals & Intake/Output Vital Signs: Vital Signs Temperature 97.9 F 12/16/23 07:21 Pulse Rate 104 H 12/16/23 07:28 Respiratory Rate 18 12/16/23 07:28 Blood Pressure 125/85 12/16/23 07:21 O2 Sat by Pulse Oximetry 93 L 12/16/23 07:28 Intake & Output: Intake & Output 12/13/23 12/14/23 12/15/23 12/16/23 11:59 11:59 11:59 11:59 Intake Total 5342 0464 Output Total 800 700 Balance 1162 1754 Weight 92.5 kg - Lab Result Diagrams: 12/16/23 04:25 12/16/23 04:25 Lab Results-Last 24 Hrs: Lab Results-Last 24 Hours 12/16/23 12/16/23 Range/Units 04:25 04:25 WBC 13.1 H (4.23-9.07) x10^3/uL RBC 3.92 L (4.63-6.08) x10^6/uL Hgb 12.3 L (13.7-17.5) g/dL Hct 36.9 L (40.1-51.0) % MCV 94.1 H (79.0-92.2) fL MCH 31.4 (25.7-32.2) pg MCHC 33.3 (32.3-36.5) g/dL RDW 14.5 H (11.6-14.4) % Plt Count 176 (163-337) x10^3/uL MPV 11.4 (9.4-12.4) fL Gran % 87.5 H (34.0-67.9) % Immature Gran % (Auto) 0.8 H (0.001-0.429) % Nucleat RBC Rel Count 0.0 (0.00-0.2) % Eos # (Auto) 0.01 L (0.04-0.54) x10^3/uL Immature Gran # (Auto) 0.11 H (0.001-0.031) x10^3u/L Absolute Lymphs (auto) 0.66 L (1.32-3.57) x10^3/uL Absolute Monos (auto) 0.85 H (0.30-0.82) x10^3/uL Absolute Nucleated RBC 0.00 (0.00-0.012) x10^3u/L Lymphocytes % 5.0 L (21.8-53.1) % Monocytes % 6.5 (5.3-12.2) % Eosinophils % 0.1 L (0.8-7.0) % Basophils % 0.1 L (0.2-1.2) % Absolute Granulocytes 11.50 H (1.78-5.38) x10^3/uL Basophils # 0.01 (0.01-0.08) x10^3/uL Sodium 133 L (135-145) mmol/L Potassium 4.3 (3.5-5.1) mmol/L Chloride 106 (98-107) mmol/L Carbon Dioxide 18 L (22-30) mmol/L Anion Gap 13.5 (5-15) MEQ/L BUN 28 H (9-20) mg/dL Creatinine 0.92 (0.66-1.25) mg/dL Estimated GFR 81.5 ML/MIN Glucose 158 H (74-106) mg/dL Calcium 8.1 L (8.4-10.2) mg/dL Total Bilirubin 0.50 (0.2-1.3) mg/dL AST 36 (17-59) U/L ALT 35 (0-50) U/L Alkaline Phosphatase 65 (38-126) U/L Serum Total Protein 6.1 L (6.3-8.2) g/dL Albumin 3.2 L (3.5-5.0) g/dL Micro Results-Entire Visit: Microbiology 12/14/23 04:15 Blood Culture - Preliminary Blood 12/14/23 04:00 Blood Culture - Preliminary Blood - Radiology Exams Ordered Rad Exams-Entire Visit: Radiology Procedures Category Date Time Status VENOUS BILATERAL EXTREMITY [US] Routine Exams 12/16/23 08:00 Ordered - Procedures and Test Procedures and Tests throughout Hospitalization: Therapy Orders & Screens 12/14/23 04:29 Respiratory Therapy Assessment DAILY Comment: 12/14/23 09:46 Oxygen Nasal Cannula 6 lpm Comment: Respiratory Therapy Consult ONCE Comment: Reason For Exam: 12/14/23 10:37 RT Screen per Nursing Assess ONCE Comment: Protocol Order Physician Instructions: Greater than 3 points order RT Admission Screen Reason For Exam: Triggered on Admission Diagnosis: PNE, PE Diagnosis: PNE, PE Pneumonia: Yes Home O2: Yes Asthma: Yes CHF: No Home CPAP/BIPAP: No Home Nebs/MDI: Yes Total Points: 17 12/16/23 08:17 PT Eval & Treat (MD Order) ONCE Reason for Eval:: severe weakness Diagnosis: pneumonia Discharge Exam General Appearance: no apparent distress, alert Neurologic Exam: alert, oriented x 3, cooperative, normal mood/affect, nml cerebellar function, sensation nml, motor weakness, No motor deficits Eye Exam: PERRL, EOMI, eyes nml inspection Ears, Nose, Throat Exam: normal ENT inspection, pharynx normal, moist mucous membranes Neck Exam: normal inspection, non-tender, supple, full range of motion Respiratory Exam: normal breath sounds, lungs clear, No respiratory distress Cardiovascular Exam: regular rate/rhythm, normal heart sounds Gastrointestinal/Abdomen Exam: soft, No tenderness, No mass Male Genitalia Exam: deferred Rectal Exam: deferred Back Exam: normal inspection, normal range of motion, No CVA tenderness, No eliel tebral tenderness Extremity Exam: normal inspection, normal range of motion Skin Exam: normal color, warm, dry Final Diagnosis/Problem List - Final Discharge Diagnosis/Problem (1) Sepsis Current Visit: Yes Status: Acute Assessment & Plan: -Secondary to pneumonia -Meets criteria with WBC at 14.6, tachycardia, tachypnea, and known source of infection (pneumonia) -LA WNL -PCT, blood cultures, sputum cultures pending -Ceftriaxone/azithromycin -in ED, will continue with zosyn - Procal 0.100 12/15/23: -continue Zosyn -WBC trend improving 12.4<14.6 -PCT elevated at 0.100 12/15 - BC X2 negative (2) Abnormal finding on imaging Current Visit: Yes Status: Acute Assessment & Plan: - Faxed previous medical records, bronch and CT results from [place] to Dr. Quintero- Pulmonology per request - All Imaging reviewed- current and previous Code(s): R93.89 - ABNORMAL FINDINGS ON DX IMAGING OF OTH BODY STRUCTURES (3) Acute respiratory failure with hypoxia Current Visit: Yes Status: Acute Assessment & Plan: -Multifactoral with pneumonia/PE/COPD exacerbation -RT eval with NEB/bronchodilators -On baseline 4L - supplemental oxygen @ 93% -zosyn/solu-medrol Code(s): J96.01 - ACUTE RESPIRATORY FAILURE WITH HYPOXIA (4) BPH (benign prostatic hyperplasia) Current Visit: Yes Status: Acute Assessment & Plan: -continue flomax/detrol Code(s): N40.0 - BENIGN PROSTATIC HYPERPLASIA WITHOUT LOWER URINRY TRACT SYMP (5) COPD exacerbation Current Visit: Yes Status: Acute Assessment & Plan: -see ARF Code(s): J44.1 - CHRONIC OBSTRUCTIVE PULMONARY DISEASE W (ACUTE) EXACERBATION (6) HLD (hyperlipidemia) Current Visit: Yes Status: Acute Assessment & Plan: -continue statin Code(s): E78.5 - HYPERLIPIDEMIA, UNSPECIFIED (7) HTN (hypertension) Current Visit: Yes Status: Acute Assessment & Plan: -stable continue home medications Code(s): I10 - ESSENTIAL (PRIMARY) HYPERTENSION (8) Pneumonia Current Visit: Yes Status: Acute Assessment & Plan: -see ARF/Sepsis Code(s): J18.9 - PNEUMONIA, UNSPECIFIED ORGANISM (9) Pulmonary embolism Current Visit: Yes Status: Acute Assessment & Plan: -Therapeutic dosing lovenox x 24 hours - then eliquis 10mg po bid x 7 days, then 5mg po bid there after (pending chart review of bronch, may keep on lovenox if patient needs bronch) - Pulm consult - Venous duplex 12/16/23 Left and right legs negative for DVT. Code(s): I26.99 - OTHER PULMONARY EMBOLISM WITHOUT ACUTE COR PULMONALE (10) Obesity (BMI 30.0-34.9) Current Visit: Yes Status: Acute Assessment & Plan: - advised diet and exercise control Code(s): E66.9 - OBESITY, UNSPECIFIED (11) Weakness Current Visit: Yes Status: Acute Assessment & Plan: - PT eval and treat Code(s): R53.1 - WEAKNESS - Discharge Discharge Date: 12/16/23 Disposition: Home, Self-Care Condition: Fair Prescriptions: No Action lisinopriL [Lisinopril] 10 mg PO DAILY Montelukast Sodium 10 mg [Singulair 10 MG] 10 mg PO QHS Famotidine 20 mg [Pepcid 20 MG] 20 mg PO BID Amlodipine Besylate 5 mg [Norvasc 5 mg] 5 mg PO DAILY Tolterodine Tartrate [Tolterodine Tartrate ER] 4 mg PO DAILY Tamsulosin HCl 0.4 mg PO EVENING MEAL Pravastatin Sodium 20 mg PO QHS Celecoxib [Celebrex] 100 mg PO BID Sertraline HCl 50 mg [Zoloft 50 mg Tablet] 200 mg PO DAILY Furosemide 40 mg [Lasix 40 MG] 40 mg PO UD Methocarbamol [Robaxin] 1,000 mg PO BID Pregabalin [Lyrica] 150 mg PO BID Ergocalciferol (Vitamin D2) [Vitamin D2] 1 tab PO WEEKLY Fluticasone Propion/Salmeterol [Wixela 250-50 Inhub] 2 puffs IH BID Fexofenadine HCl [Franci Allergy] 180 mg PO DAILY Fluticasone Propionate 1 spray IH BID Hydrocodone/Acetaminophen [Hydrocodone-Acetamin 10-325 mg] 1 each PO Q4HPRN PRN PRN Reason: Pain Clotrimazole/Betamet Diprop [Lotrisone Cream] 1 each TOP DAILY PRN PRN PRN Reason: FUNGAL INFECTION Levothyroxine Sodium [Synthroid] 125 mcg PO DAILY Guaifenesin [Mucus Relief] 1 each PO DAILY Follow up with: TANVI HENRY JR [Primary Care Provider] -
--- NOTE | 2023-12-16 11:08 | XRAY ---
Indication: Pulmonary was. Two-dimensional sonogram and color Doppler imaging major venous vessels left and right leg performed. Comparison: None No thrombus seen in the examined deep venous vessels left and right leg including greater saphenous vein. Veins demonstrate normal compressibility. Venous waveforms are normal with and without augmentation. Impression: Left and right legs negative for DVT.
--- NOTE | 2023-12-16 18:12 | PCM.NOTE ---
Date and Time: 12/16/231806 Subjective Assessment: 12/16/23 Mr. Story is an 83 year old male with a pmhx of COPD (on 4L at baseline), HLD, GERD, HTN, asthma, hypothyroidism, OA, depression, and PTSD who presented to ED 12/14/23 with a two day history of progressive dyspnea. Patient states he originally had COVID about one year ago and several episodes of pneumonia which has left him with residual SOB requiring 4L of oxygen at baseline. About two weeks ago he developed a new cough and shortness of breath. Last week he states he was feeling better but the last two days the dyspnea and cough came back making it hard to even ambulate short distances without having to sit down. Denies cp, abdominal pain, ESPINOZA, dizziness, N/V/D. He denies sick contacts. He has been having subjective fevers, nasal congestion, and body aches. Today he has continued SOB with walking to the bathroom and weakness. Swing bed discussed wi th pt by CM. He is willing to stay here for this but not willing to go to rehab facility. Dr. Quintero- Pulcurly consulted and came in to see pt today. He would like pt to have a repeat CT with contrast in AM and PET scan ordered OP at [facility] at d/c. An appointment will also be made at d/c to f/u with Dr. Elkins. Continue antibiotics, steroids, duonebs for pneumonia. Continue therapeutic Lovenox for now. VD of BLLE negative today. He is on baseline 4lNC O2. He denbies CP, Abd. pain, N/V/D. - Review of Systems Constitutional: No Fever, No Chills Eyes: No Symptoms Ears, Nose, & Throat: No Symptoms Respiratory: Cough, Short Of Breath Cardiac: No Chest Pain, No Edema, No Syncope Abdominal/Gastrointestinal: No Abdominal Pain, No Nausea, No Vomiting, No Diarrhea Genitourinary Symptoms: No Dysuria Musculoskeletal: No Back Pain, No Neck Pain Skin: No Rash Neurological: No Dizziness, No Focal Weakness, No Sensory Changes Psychological: No Symptoms Endocrine: No Symptoms Hematologic/Lymphatic: No Symptoms Immunological/Allergic: No Symptoms Objective Exam General Appearance: no apparent distress, alert Neurologic Exam: alert, oriented x 3, cooperative, normal mood/affect, nml cerebellar function, sensation nml, No motor deficits Skin Exam: normal color, warm, dry Eye Exam: PERRL, EOMI, eyes nml inspection Ears, Nose, Throat Exam: normal ENT inspection, pharynx normal, moist mucous membranes Neck Exam: normal inspection, non-tender, supple, full range of motion Respiratory Exam: normal breath sounds, lungs clear, No respiratory distress Cardiovascular Exam: regular rate/rhythm, normal heart sounds, tachycardia Gastrointestinal/Abdomen Exam: soft, No tenderness, No mass Extremity Exam: normal inspection, normal range of motion Back Exam: normal inspection, normal range of motion, No CVA tenderness, No vertebral tenderness Male Genitalia Exam: deferred Rectal Exam: deferred Objective Data Vital Signs: Vital Signs - 24 hr Temp Pulse Resp BP Pulse Ox 12/16/23 15:50 97.6 F 94 H 16 123/76 94 L 12/16/23 13:14 94 H 18 94 L 12/16/23 11:28 98.6 F 105 H 16 129/66 94 L 12/16/23 07:28 104 H 18 93 L 12/16/23 07:21 97.9 F 85 16 125/85 93 L 12/16/23 04:00 98.1 F 92 H 22 115/59 93 L 12/16/23 01:03 103 H 22 91 L 12/15/23 23:48 98.2 F 101 H 19 115/62 93 L 12/15/23 20:00 98.6 F 97 H 18 110/59 94 L 12/15/23 19:20 89 20 90 L Pain Assessment - Last Documented Pain Intensity 0 Intake and Output: Intake & Output 12/14/23 12/15/23 12/16/23 12/17/23 11:59 11:59 11:59 11:59 Intake Total 4729 3514 Output Total 800 700 400 Balance 1162 1754 -400 Weight 92.5 kg 92.5 kg Lab Results: Lab Results-Last 24 Hours 12/16/23 12/16/23 Range/Units 04:25 04:25 WBC 13.1 H (4.23-9.07) x10^3/uL RBC 3.92 L (4.63-6.08) x10^6/uL Hgb 12.3 L (13.7-17.5) g/dL Hct 36.9 L (40.1-51.0) % MCV 94.1 H (79.0-92.2) fL MCH 31.4 (25.7-32.2) pg MCHC 33.3 (32.3-36.5) g/dL RDW 14.5 H (11.6-14.4) % Plt Count 176 (163-337) x10^3/uL MPV 11.4 (9.4-12.4) fL Gran % 87.5 H (34.0-67.9) % Immature Gran % (Auto) 0.8 H (0.001-0.429) % Nucleat RBC Rel Count 0.0 (0.00-0.2) % Eos # (Auto) 0.01 L (0.04-0.54) x10^3/uL Immature Gran # (Auto) 0.11 H (0.001-0.031) x10^3u/L Absolute Lymphs (auto) 0.66 L (1.32-3.57) x10^3/uL Absolute Monos (auto) 0.85 H (0.30-0.82) x10^3/uL Absolute Nucleated RBC 0.00 (0.00-0.012) x10^3u/L Lymphocytes % 5.0 L (21.8-53.1) % Monocytes % 6.5 (5.3-12.2) % Eosinophils % 0.1 L (0.8-7.0) % Basophils % 0.1 L (0.2-1.2) % Absolute Granulocytes 11.50 H (1.78-5.38) x10^3/uL Basophils # 0.01 (0.01-0.08) x10^3/uL Sodium 133 L (135-145) mmol/L Potassium 4.3 (3.5-5.1) mmol/L Chloride 106 (98-107) mmol/L Carbon Dioxide 18 L (22-30) mmol/L Anion Gap 13.5 (5-15) MEQ/L BUN 28 H (9-20) mg/dL Creatinine 0.92 (0.66-1.25) mg/dL Estimated GFR 81.5 ML/MIN Glucose 158 H (74-106) mg/dL Calcium 8.1 L (8.4-10.2) mg/dL Total Bilirubin 0.50 (0.2-1.3) mg/dL AST 36 (17-59) U/L ALT 35 (0-50) U/L Alkaline Phosphatase 65 (38-126) U/L Serum Total Protein 6.1 L (6.3-8.2) g/dL Albumin 3.2 L (3.5-5.0) g/dL Radiology Exams: Radiology Procedures Category Date Time Status VENOUS BILATERAL EXTREMITY [US] Routine Exams 12/16/23 08:00 Completed Multi-Disciplinary Progress Notes: Multi-Disciplinary Progress Notes 12/15/23 20:38 Respiratory Note by Brooklyn Delarosa OXYGEN HAD BEEN DISPLACED BEFORE ASSESSMENT. SPO2 90% ON ROOM AIR. DECREASED TO 4L OXYMIZER AFTER NEB TREATMENT. Initialized on 12/15/23 20:38 - END OF NOTE Assessment/Plan (1) Sepsis Current Visit: Yes Status: Acute (2) Abnormal finding on imaging Current Visit: Yes Status: Acute Code(s): R93.89 - ABNORMAL FINDINGS ON DX IMAGING OF OTH BODY STRUCTURES (3) Acute respiratory failure with hypoxia Current Visit: Yes Status: Acute Code(s): J96.01 - ACUTE RESPIRATORY FAILURE WITH HYPOXIA (4) BPH (benign prostatic hyperplasia) Current Visit: Yes Status: Acute Code(s): N40.0 - BENIGN PROSTATIC HYPERPLASIA WITHOUT LOWER URINRY TRACT SYMP (5) COPD exacerbation Current Visit: Yes Status: Acute Code(s): J44.1 - CHRONIC OBSTRUCTIVE PULMONARY DISEASE W (ACUTE) EXACERBATION (6) HLD (hyperlipidemia) Current Visit: Yes Status: Acute Code(s): E78.5 - HYPERLIPIDEMIA, UNSPECIFIED (7) HTN (hypertension) Current Visit: Yes Status: Acute Code(s): I10 - ESSENTIAL (PRIMARY) HYPERTENSION (8) Pneumonia Current Visit: Yes Status: Acute Code(s): J18.9 - PNEUMONIA, UNSPECIFIED ORGANISM (9) Pulmonary embolism Current Visit: Yes Status: Acute Code(s): I26.99 - OTHER PULMONARY EMBOLISM WITHOUT ACUTE COR PULMONALE (10) Obesity (BMI 30.0-34.9) Current Visit: Yes Status: Acute Code(s): E66.9 - OBESITY, UNSPECIFIED (11) Weakness Current Visit: Yes Status: Acute Assessment & Plan: (1) Sepsis Current Visit: Yes Status: Acute Assessment & Plan: -Secondary to pneumonia -Meets criteria with WBC at 14.6, tachycardia, tachypnea, and known source of infection (pneumonia) -LA WNL -PCT, blood cultures, sputum cultures pending -Ceftriaxone/azithromycin -in ED, will continue with zosyn - Procal 0.100 12/15/23: -continue Zosyn -WBC trend improving 12.4<14.6 -PCT elevated at 0.100 12/15 - BC X2 negative (2) Abnormal finding on imaging Current Visit: Yes Status: Acute Assessment & Plan: - Faxed previous medical records, bronch and CT results from [facility] to Dr. Quintero- Pulmonology per request - All Imaging reviewed- current and previous 12/15 - Per Pulm: repeat CT with contrast in AM, Schedule PET scan OP at [facility], F/U op with Pulm at d/c. Code(s): R93.89 - ABNORMAL FINDINGS ON DX IMAGING OF OTH BODY STRUCTURES (3) Acute respiratory failure with hypoxia Current Visit: Yes Status: Acute Assessment & Plan: -Multifactoral with pneumonia/PE/COPD exacerbation -RT eval with NEB/bronchodilators -On baseline 4L - supplemental oxygen @ 93% -zosyn/solu-medrol Code(s): J96.01 - ACUTE RESPIRATORY FAILURE WITH HYPOXIA (4) BPH (benign prostatic hyperplasia) Current Visit: Yes Status: Acute Assessment & Plan: -continue flomax/detrol Code(s): N40.0 - BENIGN PROSTATIC HYPERPLASIA WITHOUT LOWER URINRY TRACT SYMP (5) COPD exacerbation Current Visit: Yes Status: Acute Assessment & Plan: -see ARF Code(s): J44.1 - CHRONIC OBSTRUCTIVE PULMONARY DISEASE W (ACUTE) EXACERBATION (6) HLD (hyperlipidemia) Current Visit: Yes Status: Acute Assessment & Plan: -continue statin Code(s): E78.5 - HYPERLIPIDEMIA, UNSPECIFIED (7) HTN (hypertension) Current Visit: Yes Status: Acute Assessment & Plan: -stable continue home medications Code(s): I10 - ESSENTIAL (PRIMARY) HYPERTENSION (8) Pneumonia Current Visit: Yes Status: Acute Assessment & Plan: -see ARF/Sepsis Code(s): J18.9 - PNEUMONIA, UNSPECIFIED ORGANISM (9) Pulmonary embolism Current Visit: Yes Status: Acute Assessment & Plan: -Therapeutic dosing lovenox - then eliquis 10mg po bid x 7 days, then 5mg po bid there after (pending chart review of bronch, may keep on lovenox if patient needs bronch) - Pulm consult - Venous duplex 12/16/23 Left and right legs negative for DVT. Code(s): I26.99 - OTHER PULMONARY EMBOLISM WITHOUT ACUTE COR PULMONALE (10) Obesity (BMI 30.0-34.9) Current Visit: Yes Status: Acute Assessment & Plan: - advised diet and exercise control Code(s): E66.9 - OBESITY, UNSPECIFIED (11) Weakness Current Visit: Yes Status: Acute Assessment & Plan: - PT eval and treat - consider swing bed Code(s): R53.1 - WEAKNESS Code(s): R53.1 - WEAKNESS
[2023-12-17 04:25] LABS: Hemoglobin 13.6 g/dL (13.7-17.5); Mean Corpuscular Hemoglobin 31.3 pg (25.7-32.2); Mean Platelet Volume 11.1 fL (9.4-12.4); Platelet Count 212 x10^3/uL (163-337); Red Blood Count 4.35 x10^6/uL (4.63-6.08); Red Cell Distribution Width 14.6 % (11.6-14.4); White Blood Count 13.2 x10^3/uL (4.23-9.07)
[2023-12-17 04:48] LABS: ALBUMIN 3.7 g/dL (3.5-5.0); ANION GAP 12.1 MEQ/L (5-15); BILIRUBIN,TOTAL 0.6 mg/dL (0.2-1.3); Calcium 8.7 mg/dL (8.4-10.2); Creatinine 1 0.92 mg/dL (0.66-1.25); EST GLOMERULAR FILTRATION RATE 81.5 ML/MIN; Potassium 4.4 mmol/L (3.5-5.1); Total Protein 6.9 g/dL (6.3-8.2)
[2023-12-17 05:28] LABS: Lymphocytes 1 % (24-44); Monocyte 4 % (0.0-12.0); Neutrophils 95 % (1.78-5.38); Total Cells Counted 100
[2023-12-17 05:29] LABS: Platelet Estimate NORMAL (NORMAL)
[2023-12-17 07:04] VITALS: RESP 18
--- NOTE | 2023-12-17 09:35 | XRAY ---
CLINICAL HISTORY: SOA; elevated D-dimer COMPARISON: 09/09/2023 TECHNIQUE: Contiguous 3.[address] images of the chest were acquired with the administration of intravenous contrast. Coronal and sagittal reconstructions were obtained. 100 cc isovue-370 was administered for post-contrast images. One of the following dose reduction techniques was utilized for this exam: Automated exposure control, adjustment of the mA and kV according to patient size, and use of iterative reconstruction FINDINGS: Lungs: Bilateral multiple nodules and consolidation areas are seen scattered in both lungs, the largest noted in the inferior lingula measures 19x 23 mm. Consolidative mass was noted in the right lower lung lobe, based on the fissure at its anterior segment with air bronchogram, it measures 69 x 30 mm. Bilateral mild pleural reactions. Bilateral emphysematous changes with upper lobar predominance. Mediastinum: No mediastinal mass or abnormal lymphadenopathy. Normal appearance of the thymus. Hilar Structures: Normal size and configuration, no enlargement. Heart and Great Vessels: Cardiomegaly. The dilated ascending aorta measures 49 mm. Thoracic aortic, scanned abdominal aorta and coronary arteries intimal atherosclerotic calcifications. No pericardial effusion. Pulmonary Arteries: Suspected small filling defects were noted in subsegmental branches of both lower pulmonary arteries. Proper assessment is hindered by the improper timing of contrast bolus. Esophagus: Normal course and caliber. No masses or dilatation. Bones: Thoracic spine degenerative changes with osteophytes. Bilateral shoulder prosthetic joint replacements. Chest Wall: No masses or soft tissue abnormalities. Upper Abdomen: Fatty liver. Visualized portions of the spleen, pancreas, adrenal glands, and kidneys are normal. No abnormalities were noted in the visualized upper abdominal organs. Thyroid: Normal size and morphology. No nodules or masses. IMPRESSION: 1. Inadequate contrast within the pulmonary arteries, yet there are suspected small filling defects were noted in subsegmental branches of both lower pulmonary arteries, which could be pulmonary embolism versus artefacts, Follow-up and clinical correlations are needed. 2. Bilateral multiple nodules and consolidation areas are seen scattered in both lungs, the largest noted in the inferior lingula measures 19x 23 mm, could be infective etiology versus metastatic deposits, clinical correlation/pet-ct and or tissue sampling is needed. 3. Bilateral emphysematous changes with upper lobar predominance. 4. Consolidative mass was noted in the right lower lung lobe, based on the fissure at its anterior segment with air bronchogram, it measures 69 x 30 mm. 5. Thoracic spine degenerative changes with osteophytes. 6. Bilateral mild pleural reactions. 7. Cardiomegaly. 8. The dilated ascending aorta measures 49 mm. 9. Fatty liver. 10. No time interval changes. Electronically Signed by: Brandi Petersen MD. (12/14/2023 06:59:01 EDT)
--- NOTE | 2023-12-17 09:48 | XRAY ---
Indication: Short of breath. Cough. Pulmonary embolus. Multiple contiguous axial images obtained through the chest using 80 cc Isovue 370 contrast and PE protocol. Comparison: December 14, 2023 Adequate opacification of the pulmonary arteries to include the lobar branches. No pulmonary embolus. Continued enlarged main pulmonary arteries favoring pulmonary hypertension. Heart not enlarged again with scattered coronary calcifications. Aorta again mildly arteriosclerotic without aneurysm/dissection. No pathologic mediastinal/hilar lymphadenopathy. Lungs demonstrates grossly stable multiple bilateral nodules and right mid to lower lung consolidative masslike opacities worrisome for metastasis. Again chronic findings including diffuse centrilobular pulmonary emphysema with scattered fibrosis/scarring. No effusion. Bony thorax intact again with osteopenia, mild/moderate degenerative changes throughout the spine, and bilateral shoulder arthroplasty. Limited upper abdomen again demonstrates fatty liver. Impression: 1. No pulmonary embolus. Previous reported pulmonary artery subsegmental filling defects are felt to be artifactual due to suboptimal contrast opacification and respiration artifact. 2. Grossly stable diffuse bilateral pulmonary metastasis. 3. Again chronic findings including pulmonary emphysema with fibrosis/scarring, pulmonary hypertension, arteriosclerotic disease, chronic bony findings, and fatty liver.
--- NOTE | 2023-12-17 10:52 | PCM.DS ---
Discharge Summary Date of Admission: 12/14/23 09:15 Date of Discharge: 12/17/23 Admitting Physician: CRISTIAN OJEDA Consults: Consults on Case 12/15/23 09:40 Consult Pulmonology ROUTINE Primary Care Provider: TANVI HENRY JR Allergies Allergies hydrochlorothiazide Allergy (Verified 12/14/23 03:52) terazosin Allergy (Verified 12/14/23 03:52) Hospital Summary - Hospital Course Hospital Course: 12/16/23 Mr. Story is an 83 year old male with a pmhx of COPD (on 4L at baseline), HL D, GERD, HTN, asthma, hypothyroidism, OA, depression, and PTSD who presented to ED 12/14/23 with a two day history of progressive dyspnea. Patient states he originally had COVID about one year ago and several episodes of pneumonia which has left him with residual SOB requiring 4L of oxygen at baseline. About two weeks ago he developed a new cough and shortness of breath. Last week he states he was feeling better but the last two days the dyspnea and cough came back making it hard to even ambulate short distances without having to sit down. Denies cp, abdominal pain, ESPINOZA, dizziness, N/V/D. He denies sick contacts. He has been having subjective fevers, nasal congestion, and body aches. Today he has continued SOB with walking to the bathroom and weakness. Swing bed discussed with pt by CM. He is willing to stay here for this but not willing to go to rehab facility. Dr. Yoanna Gannon consulted and came in to see pt today. He would like pt to have a repeat CT with contrast in AM and PET scan ordered OP at [facility] at d/c. An appointment will also be made at d/c to f/u with Dr. Elkins. Continue antibiotics, steroids, duonebs for pneumonia. Continue therapeutic Dorothy enox for now. VD of BLLE negative today. He is on baseline 4lNC O2. He denbies CP, Abd. pain, N/V/D. 12/17/23 Pt resting in bed. Discussed CT results today with pt and daughter. It does not show a PE but does show Pulmonary metastasis. Pt would like to d/c home and have PET scan OP. He will then f/u with Dr. Deshapnde after PET scan done for further plan of care. Family is asking for wheelchair at home. Pt and family feel comfortable with pt d/c today. SOB improved. He denies any further concerns at this time. - Vitals & Intake/Output Vital Signs: Vital Signs Temperature 98.3 F 12/17/23 06:49 Pulse Rate 89 12/17/23 07:02 Respiratory Rate 18 12/17/23 07:02 Blood Pressure 171/79 12/17/23 06:49 O2 Sat by Pulse Oximetry 92 L 12/17/23 07:02 Intake & Output: Intake & Output 12/14/23 12/15/23 12/16/23 12/17/23 11:59 11:59 11:59 11:59 Intake Total 1962 2454 240 Output Total 960 741 6131 Balance 1162 1754 -760 Weight 92.5 kg 92.5 kg - Lab Result Diagrams: 12/17/23 04:15 12/17/23 04:15 Lab Results-Last 24 Hrs: Lab Results-Last 24 Hours 12/17/23 12/17/23 Range/Units 04:15 04:15 WBC 13.2 H (4.23-9.07) x10^3/uL RBC 4.35 L (4.63-6.08) x10^6/uL Hgb 13.6 L (13.7-17.5) g/dL Hct 40.0 L (40.1-51.0) % MCV 92.0 (79.0-92.2) fL MCH 31.3 (25.7-32.2) pg MCHC 34.0 (32.3-36.5) g/dL RDW 14.6 H (11.6-14.4) % Plt Count 212 (163-337) x10^3/uL MPV 11.1 (9.4-12.4) fL Segmented Neutrophils 95 H (1.78-5.38) % Lymphocytes (Manual) 1 L (24-44) % Monocytes (Manual) 4 (0.0-12.0) % Platelet Estimate NORMAL (NORMAL) RBC Morphology NORMAL Sodium 134 L (135-145) mmol/L Potassium 4.4 (3.5-5.1) mmol/L Chloride 106 (98-107) mmol/L Carbon Dioxide 20 L (22-30) mmol/L Anion Gap 12.1 (5-15) MEQ/L BUN 19 (9-20) mg/dL Creatinine 0.92 (0.66-1.25) mg/dL Estimated GFR 81.5 ML/MIN Glucose 138 H (74-106) mg/dL Calcium 8.7 (8.4-10.2) mg/dL Total Bilirubin 0.60 (0.2-1.3) mg/dL AST 44 (17-59) U/L ALT 40 (0-50) U/L Alkaline Phosphatase 67 (38-126) U/L Serum Total Protein 6.9 (6.3-8.2) g/dL Albumin 3.7 (3.5-5.0) g/dL Micro Results-Entire Visit: Microbiology 12/14/23 04:15 Blood Culture - Preliminary Blood 12/14/23 04:00 Blood Culture - Preliminary Blood - Radiology Exams Ordered Rad Exams-Entire Visit: Radiology Procedures Category Date Time Status CHEST WITH CONTRAST [CT] Routine Exams 12/17/23 08:00 Completed VENOUS BILATERAL EXTREMITY [US] Routine Exams 12/16/23 08:00 Completed - Procedures and Test Procedures and Tests throughout Hospitalization: Therapy Orders & Screens 12/14/23 04:29 Respiratory Therapy Assessment DAILY Comment: 12/14/23 09:46 Oxygen Nasal Cannula 6 lpm Comment: Respiratory Therapy Consult ONCE Comment: Reason For Exam: 12/14/23 10:37 RT Screen per Nursing Assess ONCE Comment: Protocol Order Physician Instructions: Greater than 3 points order RT Admission Screen Reason For Exam: Triggered on Admission Diagnosis: PNE, PE Diagnosis: PNE, PE Pneumonia: Yes Home O2: Yes Asthma: Yes CHF: No Home CPAP/BIPAP: No Home Nebs/MDI: Yes Total Points: 17 12/16/23 08:17 PT Eval & Treat (MD Order) ONCE Reason for Eval:: severe weakness Diagnosis: pneumonia Discharge Exam General Appearance: no apparent distress, alert Neurologic Exam: alert, oriented x 3, cooperative, normal mood/affect, nml cerebellar function, sensation nml, motor weakness, No motor deficits Eye Exam: PERRL, EOMI, eyes nml inspection Ears, Nose, Throat Exam: normal ENT inspection, pharynx normal, moist mucous membranes Neck Exam: normal inspection, non-tender, supple, full range of motion Respiratory Exam: normal breath sounds, lungs clear, No respiratory distress Cardiovascular Exam: regular rate/rhythm, normal heart sounds Gastrointestinal/Abdomen Exam: soft, No tenderness, No mass Male Genitalia Exam: deferred Rectal Exam: deferred Back Exam: normal inspection, normal range of motion, No CVA tenderness, No vertebral tenderness Extremity Exam: normal inspection, normal range of motion Skin Exam: normal color, warm, dry Final Diagnosis/Problem List - Final Discharge Diagnosis/Problem (1) Sepsis Current Visit: Yes Status: Acute (2) Abnormal finding on imaging Current Visit: Yes Status: Acute Code(s): R93.89 - ABNORMAL FINDINGS ON DX I MAGING OF OTH BODY STRUCTURES (3) Acute respiratory failure with hypoxia Current Visit: Yes Status: Acute Code(s): J96.01 - ACUTE RESPIRATORY FAILURE WITH HYPOXIA (4) BPH (benign prostatic hyperplasia) Current Visit: Yes Status: Acute Code(s): N40.0 - BENIGN PROSTATIC HYPERPLASIA WITHOUT LOWER URINRY TRACT SYMP (5) COPD exacerbation Current Visit: Yes Status: Acute Code(s): J44.1 - CHRONIC OBSTRUCTIVE PULMONARY DISEASE W (ACUTE) EXACERBATION (6) HLD (hyperlipidemia) Current Visit: Yes Status: Acute Code(s): E78.5 - HYPERLIPIDEMIA, UNSPECIFIED (7) HTN (hypertension) Current Visit: Yes Status: Acute Code(s): I10 - ESSENTIAL (PRIMARY) HYPERTENSION (8) Pneumonia Current Visit: Yes Status: Acute Code(s): J18.9 - PNEUMONIA, UNSPECIFIED ORGANISM (9) Pulmonary embolism Current Visit: Yes Status: Acute Code(s): I26.99 - OTHER PULMONARY EMBOLISM WITHOUT ACUTE COR PULMONALE (10) Obesity (BMI 30.0-34.9) Current Visit: Yes Status: Acute Code(s): E66.9 - OBESITY, UNSPECIFIED (11) Weakness Current Visit: Yes Status: Acute Assessment & Plan: (1) Sepsis Current Visit: Yes Status: Acute Assessment & Plan: -Secondary to pneumonia -Meets criteria with WBC at 14.6, tachycardia, tachypnea, and known source of infection (pneumonia) -LA WNL -PCT, blood cultures, sputum cultures pending -Ceftriaxone/azithromycin -in ED, will continue with zosyn - Procal 0.100 12/15/23: -continue Zosyn -WBC trend improving 12.4<14.6 -PCT elevated at 0.100 12/15 - BC X2 negative (2) Abnormal finding on imaging Current Visit: Yes Status: Acute Assessment & Plan: - Faxed previous medical records, bronch and CT results from [facility] to Dr. Lisa lunsford- Pulmonology per request - All Imaging reviewed- current and previous 12/15 - Per Pulm: repeat CT with contrast in AM, Schedule PET scan OP at [facility], F/U op with Pulm at d/c. 12/16 - repeat CT chest with contrast: 12/16 Impression: 1. No pulmonary embolus. Previous reported pulmonary artery subsegmental filling defects are felt to be artifactual due to suboptimal contrast opacification and respiration artifact. 2. Grossly stable diffuse bilateral pulmonary metastasis. 3. Again chronic findings including pulmonary emphysema with fibrosis/scarring, pulmonary hypertension, arteriosclerotic disease, chronic bony findings, and fatty liver. Code(s): R93.89 - ABNORMAL FINDINGS ON DX IMAGING OF OTH BODY STRUCTURES (3) Acute respiratory failure with hypoxia Current Visit: Yes Status: Acute Assessment & Plan: -Multifactoral with pneumonia/PE/COPD exacerbation -RT eval with NEB/bronchodilators -On baseline 4L - supplemental oxygen @ 93% -zosyn/solu-medrol Code(s): J96.01 - ACUTE RESPIRATORY FAILURE WITH HYPOXIA (4) BPH (benign prostatic hyperplasia) Current Visit: Yes Status: Acute Assessment & Plan: -continue flomax/detrol Code(s): N40.0 - BENIGN PROSTATIC HYPERPLASIA WITHOUT LOWER URINRY TRACT SYMP (5) COPD exacerbation Current Visit: Yes Status: Acute Assessment & Plan: -see ARF Code(s): J44.1 - CHRONIC OBSTRUCTIVE PULMONARY DISEASE W (ACUTE) EXACERBATION (6) HLD (hyperlipidemia) Current Visit: Yes Status: Acute Assessment & Plan: -continue statin Code(s): E78.5 - HYPERLIPIDEMIA, UNSPECIFIED (7) HTN (hypertension) Current Visit: Yes Status: Acute Assessment & Plan: -stable continue home medications Code(s): I10 - ESSENTIAL (PRIMARY) HYPERTENSION (8) Pneumonia Current Visit: Yes Status: Acute Assessment & Plan: -see ARF/Sepsis Code(s): J18.9 - PNEUMONIA, UNSPECIFIED ORGANISM (9) Pulmonary embolism Current Visit: Yes Status: Acute Assessment & Plan: -Therapeutic dosing lovenox - then eliquis 10mg po bid x 7 days, then 5mg po bid there after (pending chart review of bronch, may keep on lovenox if patient needs bronch) - Pulm consult - Venous duplex 12/16/23 Left and right legs negative for DVT. Code(s): I26.99 - OTHER PULMONARY EMBOLISM WITHOUT ACUTE COR PULMONALE (10) Obesity (BMI 30.0-34.9) Current Visit: Yes Status: Acute Assessment & Plan: - advised diet and exercise control Code(s): E66.9 - OBESITY, UNSPECIFIED (11) Weakness Current Visit: Yes Status: Acute Assessment & Plan: - PT eval and treat - consider swing bed Code(s): R53.1 - WEAKNESS Code(s): R53.1 - WEAKNESS Additional CC's: TANVI HENRY Code(s): R53.1 - WEAKNESS - Discharge Discharge Date: 12/17/23 Disposition: Home, Self-Care Condition: Fair Prescriptions: Continue lisinopriL [Lisinopril] 10 mg PO DAILY Montelukast Sodium 10 mg [Singulair 10 MG] 10 mg PO QHS Famotidine 20 mg [Pepcid 20 MG] 20 mg PO BID Amlodipine Besylate 5 mg [Norvasc 5 mg] 5 mg PO DAILY Tolterodine Tartrate [Tolterodine Tartrate ER] 4 mg PO DAILY Tamsulosin HCl 0.4 mg PO EVENING MEAL Pravastatin Sodium 20 mg PO QHS Celecoxib [Celebrex] 100 mg PO BID Sertraline HCl 50 mg [Zoloft 50 mg Tablet] 200 mg PO DAILY Furosemide 40 mg [Lasix 40 MG] 40 mg PO UD Methocarbamol [Robaxin] 1,000 mg PO BID Pregabalin [Lyrica] 150 mg PO BID Ergocalciferol (Vitamin D2) [Vitamin D2] 1 tab PO WEEKLY Fluticasone Propion/Salmeterol [Wixela 250-50 Inhub] 2 puffs IH BID Fexofenadine HCl [Franci Allergy] 180 mg PO DAILY Fluticasone Propionate 1 spray IH BID Hydrocodone/Acetaminophen [Hydrocodone-Acetamin 10-325 mg] 1 each PO Q4HPRN PRN PRN Reason: Pain Clotrimazole/Betamet Diprop [Lotrisone Cream] 1 each TOP DAILY PRN PRN PRN Reason: FUNGAL INFECTION Levothyroxine Sodium [Synthroid] 125 mcg PO DAILY Guaifenesin [Mucus Relief] 1 each PO DAILY Additional Instructions: SCHEDULE PET SCAN 2023 @ 08:00 A.M. @ [facility] PER . PATIENT IS TO BE NOTHING BY MOUTH 6 HOURS PRIOR TO EXAM , LIMIT SUGAR DAY BEFORE AND ONLY MEDS AND WATER (16-32OZ AT LEAST) BEFORE EXAM, NO EXERCISING THE DAY BEFORE. FOLLOW UP WITH AFTER PET SCAN ON 2023 @ 3:30PM FOR RESULTS OF PET SCAN. WHEELCHAIR ORDERED THRU [facility]- THEY WILL DELIVER TO YOUR HOME. YOU CAN FOLLOW UP WITH THEM AT [phone] IF NEEDED Follow up with: CAMILLE GIBBS [ACTIVE STAFF] - 01/08/24 3:30 pm TANVI HENRY JR [Primary Care Provider] - 12/27/23 11:45 am
[2023-12-17 12:24] VITALS: PULSE 94; TEMP 98.2
[2023-12-17 12:42] VITALS: BP 164/79; O2SAT 96
[2023-12-18] MEDS ORDERED: ENOXAPARIN SODIUM SQ SCH (10:00)
--- NOTE | 2023-12-18 10:47 | CONS ---
REASON FOR CONSULTATION: Evaluation of shortness of breath, abnormal CAT scan. HISTORY: The patient is an 83-year-old male who has had pulmonary problems ongoing for well over 1 year. The patient reportedly has had multiple episodes of pneumonia including 1 fall of last year. He was hospitalized and underwent bronchoscopy by Dr. Vaughan. According to available medical records, multiple washings and brushings were obtained; however, no biopsies were performed. The patient has been on supplemental oxygen. His effort tolerance has significantly reduced. He has been on bronchodilators via nebulizer. He keeps changing his medications for controller due to availability per [facility]. The patient started experiencing increasing shortness of breath for the past 2 weeks. He has been hospitalized at [facility]. A CT chest performed was questionable for a small pulmonary embolism. The contrast apparently was inadequate. Venous Dopplers were obtained today which were negative for DVT. At the time of my evaluation, the patient is on Oxymizer. He is able to carry on a conversation but does report reduced effort tolerance. He is unable to walk up to his mailbox and is able to walk no more than 15 to 20 feet, requiring several minutes of recovery time. He has been diagnosed with COPD but denies prior history of DVT, PE, pleural effusion, or common medical problems. PAST MEDICAL HISTORY: The patient has history of urologic problems and is seeing Dr. Salinas. There is history of hypertension, allergic rhinitis, osteoarthritis, hypothyroidism, and gastroesophageal reflux. He also suffers from dyslipidemia. PAST SURGICAL HISTORY: No recent surgeries. HOME MEDICATIONS: According to "correct list on chart," he is on Celebrex 100 mg b.i.d., hydrocodone 10/325 every 4 p.r.n., Flonase daily, lisinopril 10 mg daily, Synthroid 125 mcg daily, Franci 180 mg p.r.n., tolterodine tartrate 4 mg daily, Flomax 0.4 mg daily, Robaxin 1000 mg b.i.d., vitamin D2 50,000 units weekly, Pepcid 20 mg b.i.d., pravastatin 40 mg in the evening, amlodipine 5 mg daily, and Lasix 40 mg every other day. He is also on albuterol nebs and [facility]. ALLERGIES: He is allergic to terazosin and hydrochlorothiazide. SOCIAL HISTORY: The patient is a former smoker. He quit smoking several years ago. LAB DATA AND TESTS: Available labs as well as all radiology tests from this admission as well as previous records available were reviewed. PHYSICAL EXAMINATION: VITAL SIGNS: Noted. HEENT: Normocephalic. Oral exam shows small oropharynx. NECK: Supple. CHEST: Diminished breath sounds. Occasional rhonchi. CARDIOVASCULAR: First and second heart sounds normal, regular, rhythmic. ABDOMEN: Soft. EXTREMITIES: No significant erythema is noted. ASSESSMENT: This is an 83-year-old male admitted with progressive shortness of breath which clearly appears to be multifactorial. The patient has underlying COPD and in addition has multiple pulmonary infiltrates with mass-like consolidation involving right upper/mid lung and left lower lobe. A possibility of malignancy cannot be excluded given the patient's age. In addition, he is relatively immobile and possibility of thromboembolism although less likely, cannot be excluded. DIAGNOSES: 1) Acute on chronic hypoxic respiratory failure. 2) Multilobar pneumonia of unclear etiology. 3) Underlying chronic obstructive pulmonary disease with exacerbation. 4) ? pulmonary embolism. 5) History of hypertension. 6) History of comorbidities listed above. RECOMMENDATION: 1) Our first priority is to convincingly rule out pulmonary thromboembolism. At this point, the patient is continued on full dose Lovenox although this certainly may not be necessary if pulmonary embolism is ruled out. Venous Dopplers have been negative. At this point, looking at CT findings, a V/Q scan is going to be at least indeterminate, which would be useless in ruling out thromboembolism. Hence, I have requested a repeat CT chest with PE protocol tomorrow morning. 2) Agree with antibiotics. Steroids, will taper. 3) Continue bronchodilators. 4) The patient would benefit from a PET scan upon discharge from the facility. Upon reviewing PET scan, further action including repeat bronchoscopy or CT-guided biopsy can be planned. 5) Agree with other treatment. Continue bronchodilators per availability. I will be available if any questions remain unanswered. I have discussed this plan of care with the patient and family at bedside as well as with nursing staff. Thank you for allowing me to participate in the care of this patient.
== END 2023-12-17 12:40 | disposition home or self-care (01) | DRG 871 ==
LOC: ED 03:49 → MED SURG 09:15
PROVIDERS: ADMIT Student in an Organized Health Care Education/Training Program; ATTEND Student in an Organized Health Care Education/Training Program
DX: A41.9 Sepsis, unspecified organism (principal); I26.99 Other pulmonary embolism without acute cor pulmonale; J18.9 Pneumonia, unspecified organism; J96.01 Acute respiratory failure with hypoxia; J44.1 Chronic obstructive pulmonary disease with (acute) exacerbation; R93.89 Abnormal findings on diagnostic imaging of other specified body structures; N40.0 Benign prostatic hyperplasia without lower urinary tract symptoms; E78.5 Hyperlipidemia, unspecified; I10 Essential (primary) hypertension; E66.9 Obesity, unspecified; Z99.81 Dependence on supplemental oxygen; K21.9 Gastro-esophageal reflux disease without esophagitis; E03.9 Hypothyroidism, unspecified; Z86.16 Personal history of COVID-19; Z79.899 Other long term (current) drug therapy
CPT/HCPCS: 0241U; 36000; 36415; 36600; 71260; 80053; 81001; 82375; 82803; 83605; 83735; 83880; 84145; 84484; 85025; 85379; 85610; 85730; 86308; 87040; 93005; 93970; 94640; 94760; 96365; 96367; 96372; 96374; 99284; J0456; J0696; J1650; J2919; Q3014; A9270-GY

== ENCOUNTER 2024-03-14 20:40 | Emergency (ER) | payer MEDICARE ==
--- NOTE | 2024-03-14 20:50 | ERPHSYRPT ---
- History of Present Illness Time Seen by Provider: 03/14/24 20:50 Source: patient, EMS Exam Limitations: no limitations Physician History: The patient presents with shortness of breath and a history of pneumonia. Two months ago, he was diagnosed with 'double pneumonia' affecting the left lung, confirmed by X-rays and a CT scan, which led to hospitalization. He has not been prescribed antibiotics for this condition. He has been experiencing shortness of breath for the past two months. Despite using supplemental oxygen at home at a rate of five liters per minute, he desires more, noting his current machine only goes up to four and a half liters. He has a persistent cough without phlegm production. No chest pain is noted. He denies any leg swelling but reports weight and muscle mass loss. He also experiences a sensation of abdominal tightness without pain. Timing/Duration: week(s) (1), gradual onset, worse Activities at Onset: rest Severity of Dyspnea-Max: severe Severity of Dyspnea-Current: severe Possible Cause: frequent episodes Modifying Factors: Worsens With: activity, coughing, deep breath, exertion Associated Symptoms: constant, cough, chest pain/discomfort, productive cough, sweating, No edema, No fever, No leg swelling Allergies/Adverse Reactions: hydrochlorothiazide Allergy (Verified 12/14/23 03:52) terazosin Allergy (Verified 12/14/23 03:52) Home Medications: Amlodipine Besylate 5 mg [Norvasc 5 mg] 5 mg PO DAILY 01/16/21 [History] Celecoxib [Celebrex] 100 mg PO BID 01/16/21 [History] Famotidine 20 mg [Pepcid 20 MG] 20 mg PO BID 01/16/21 [History] Furosemide 40 mg [Lasix 40 MG] 40 mg PO UD 01/16/21 [History] Montelukast Sodium 10 mg [Singulair 10 MG] 10 mg PO QHS 01/16/21 [History] Pravastatin Sodium 20 mg PO QHS 01/16/21 [History] Sertraline HCl 50 mg [Zoloft 50 mg Tablet] 200 mg PO DAILY 01/16/21 [History] Tamsulosin HCl 0.4 mg PO EVENING MEAL 01/16/21 [History] Tolterodine Tartrate [Tolterodine Tartrate ER] 4 mg PO DAILY 01/16/21 [History] lisinopriL [Lisinopril] 10 mg PO DAILY 01/16/21 [History] Methocarbamol [Robaxin] 1,000 mg PO BID 08/01/22 [History] Pregabalin [Lyrica] 150 mg PO BID 08/01/22 [History] Clotrimazole/Betamet Diprop [Lotrisone Cream] 1 each TOP DAILY PRN PRN 12/14/23 [History] Ergocalciferol (Vitamin D2) [Vitamin D2] 1 tab PO WEEKLY 12/14/23 [History] Fexofenadine HCl [Franci Allergy] 180 mg PO DAILY 12/14/23 [History] Fluticasone Propion/Salmeterol [[place] 250-50 Inhub] 2 puffs IH BID 12/14/23 [History] Fluticasone Propionate 1 spray IH BID 12/14/23 [History] Guaifenesin [Mucus Relief] 1 each PO DAILY 12/14/23 [History] Hydrocodone/Acetaminophen [Hydrocodone-Acetamin 10-325 mg] 1 each PO Q4HPRN PRN 12/14/23 [History] Levothyroxine Sodium [Synthroid] 125 mcg PO DAILY 12/14/23 [History] Hx Tetanus, Diphtheria Vaccination/Date Given: No Hx Influenza Vaccination/Date Given: Yes Hx Pneumococcal Vaccination/Date Given: Yes Travel Risk - Emerging Infectious Disease Are you exhibiting symptoms associated with any current EIDs: Yes Symptoms: Cough: New Onset, Shortness of Breath - Review of Systems All Other Systems: Reviewed and Negative - Past Medical History Pertinent Past Medical History: Yes Neurological History: No Pertinent History ENT History: Cataracts, Other Cardiac History: Hypertension Respiratory History: Asthma Endocrine Medical History: Hypothyroidism Musculoskeletal History: Arthritis, Osteoarthritis GI Medical History: No Pertinent History Psycho-Social History: Depression Male Reproductive Disorders: Prostate Problems Other Medical History: PTST S/P [place]. chronic sinusitis. carpal tunnel. prostatitus - Past Surgical History Past Surgical History: Yes Neuro Surgical History: No Pertinent History Cardiac: No Pertinent History Respiratory: No Pertinent History Gastrointestinal: Hernia Repair Musculoskeletal: Joint Replacement, Orthopedic Surgery Male Surgical History: Prostate Surgery, Other Other Surgical History: bilat knee. bilateral shoulder. nose surgery- deviated septum. turp X 2. sinus. eye surgery x 3 back surgery,. LOWER BACK - Social History Smoking Status: Former smoker Exposure to second hand smoke: No Drug Use: none Patient Lives Alone: No - Social Determinants of Health Will the patient participate in the screening: Yes Do you worry about a steady place to live?: No In the past 12 months,have you had to go without utilities?: No Transportation Issues: No Has anyone in your support network made you feel unsafe?: No Have you or anyone in your house had to go without enough: No - Nursing Vital Signs Nursing Vital Signs: Initial Vital Signs Temperature 97.4 F 03/14/24 20:41 Pulse Rate 107 H 03/14/24 20:41 Respiratory Rate 30 H 03/14/24 20:41 Blood Pressure 153/115 03/14/24 20:41 O2 Sat by Pulse Oximetry 88 L 03/14/24 20:41 Pain Scale Pain Intensity 0 - Physical Exam General Appearance: moderate distress, obese Eye Exam: eyes nml inspection Ears, Nose, Throat Exam: normal ENT inspection, hearing decreased Neck Exam: supple, full range of motion Respiratory Exam: respiratory distress, airway intact, crackles/rales, rhonchi Cardiovascular/Chest Exam: tachycardia, irregular Abdominal/Gastrointestinal Exam: soft, distention, No tenderness, No guarding, No rebound Neurologic Exam: alert, oriented x 3, cooperative SpO2 Interpretation: hypoxic O2 Delivery: Nasal Cannula Procedures - Central Line Time Of Procedure: 00:15 Timeout: Performed Central Line Lumen: triple Lumen Size: 7 Yoruba Central Line Procedure: chlorahexadine prep, sterile drapes applied, sterile dressing applied, Aseptic Technique, Seldinger Technique Central Line Postion: internal jugular (R) Anesthesia: 1% Lidocaine cc's of anesthesia: 1 Ultrasound Guided Placement: Yes Complications: none Progress: Unsuccessful attempt x 2 - Intubation Time of Intubation: 23:45 Intubation Indications: respiratory distress Intubation Method: glidescope Tube Size (cm): 8.0 Medications: Ketamine, Rocuronium C-Spine: maintained Endotracheal Tube Confirmation: bilateral breath sounds, positive end tidal CO2, good rise & fall of chest, stable or inc of O2 sat Intubation Complications: no complications Performed By: ED Physician Post Intubation Xray: Yes Progress/X-ray Impression: 03/15/24 00:[address] above fidencio, no pneumothorax - Course Nursing assessment & vital signs reviewed: Yes EKG Interpreted by Me: RATE ([id number]), Sinus Tach, NORMAL AXIS, NORMAL INTERVALS, NORMAL QRS, Non-specific ST Changes - Radiology Exams Chest X-ray Interpretation: Interpreted by me, Infiltrates, Pneumonia - CT Exams Chest CT Interpretation: Tele-radiologist Report, No PE, Pneumonia Ordered Tests: Active Orders 24 hr Category Date Time Status Outreach Assistant STAT Care 03/14/24 20:52 Active EKG-ER Only STAT Care 03/14/24 20:50 Active IV Insertion STAT Care 03/14/24 20:50 Active Oxygen-ED Only Nasal Cannula 5 lpm Care 03/14/24 21:15 Active CHEST 1 VIEW (PORTABLE) Stat Exams 03/14/24 20:51 Taken CHEST 1 VIEW (PORTABLE) Stat Exams 03/14/24 23:48 Taken CHEST WITH CONTRAST [CT] Stat Exams 03/14/24 21:53 Completed ARTERIAL BLOOD GASES Stat Lab 03/15/24 00:55 Completed BLOOD CULTURE Stat Lab 03/14/24 21:20 Received CBC W DIFF Stat Lab 03/14/24 21:15 Completed CMP Stat Lab 03/14/24 21:15 Completed CULTURE,SPUTUM Stat Lab 03/15/24 01:12 Ordered CULTURE,URINE Routine Lab 03/15/24 01:00 Received D-DIMER QUANTITATIVE Stat Lab 03/14/24 21:15 Completed Lactic Acid Stat Lab 03/14/24 20:50 Completed Lactic Acid Stat Lab 03/14/24 23:25 Completed MAGNESIUM Stat Lab 03/14/24 21:15 Completed NT PRO BNPII Stat Lab 03/14/24 21:15 Completed PROCALCITONIN Stat Lab 03/14/24 21:15 Completed TROPONIN Q4H Lab 03/15/24 00:56 Completed TROPONIN Q4H Lab 03/15/24 05:00 Ordered TROPONIN Stat Lab 03/14/24 21:15 Completed VENOUS BLOOD GAS Stat Lab 03/14/24 20:51 Completed BiPap/CPAP STAT RT 03/15/24 00:36 Active Intubate Patient STAT RT 03/15/24 00:35 Active Respiratory Therapy Assessment DAILY RT 03/14/24 21:12 Active Medication Summary Generic Name Dose Route Start Last Admin Trade Name Freq PRN Reason Stop Dose Admin Propofol 100 mls @ 2.811 mls/hr 03/14/24 23:33 Propofol 1000 Mg/100 Ml Bottle IV 04/13/24 23:32 .Q24H PRN SEDATION FOR VENT Protocol 5 MCG/KG/MIN Fentanyl Citrate 1,500 mcg/ 150 mls @ 9.37 mls/hr 03/14/24 23:33 Sodium Chloride IV 04/13/24 23:32 .Q16H1M PRN PAIN Protocol 1 MCG/KG/HR Discontinued Medications Generic Name Dose Route Start Last Admin Trade Name Ac PRN Reason Stop Dose Admin Albuterol/Ipratropium 3 ml 03/14/24 20:50 03/14/24 21:05 Ipratropium/Albuterol Sulfate 3 Ml Ampul.Neb IH 03/14/24 20:51 3 ml STAT ONE Administration Albuterol/Ipratropium Confirm 03/14/24 21:04 Ipratropium/Albuterol Sulfate 3 Ml Ampul.Neb Administered 03/14/24 21:05 Dose 3 ml IH .STK-MED ONE Aspirin 324 mg 03/14/24 22:02 03/14/24 22:07 Aspirin 81 Mg Tab.Chew PO 03/14/24 22:03 324 mg STAT ONE Administration Aspirin Confirm 03/14/24 22:06 Aspirin 81 Mg Tab.Chew Administered 03/14/24 22:07 Dose 324 mg .ROUTE .STK-MED ONE Clopidogrel Bisulfate 300 mg 03/14/24 22:02 03/14/24 22:08 Clopidogrel Bisulfate 75 Mg Tablet PO 03/14/24 22:03 300 mg STAT ONE Administration Clopidogrel Bisulfate Confirm 03/14/24 22:06 Clopidogrel Bisulfate 75 Mg Tablet Administered 03/14/24 22:07 Dose 300 mg .ROUTE .STK-MED ONE Enoxaparin Sodium 120 mg 03/14/24 22:01 03/14/24 22:08 Enoxaparin Sodium 120 Mg/0.8 Ml Syringe SQ 03/14/24 22:02 120 mg STAT STA Administration Enoxaparin Sodium Confirm 03/14/24 22:06 Enoxaparin Sodium 120 Mg/0.8 Ml Syringe Administered 03/14/24 22:07 Dose 120 mg SQ .STK-MED ONE Erythromycin Confirm 03/15/24 00:57 Erythromycin Base 1 Gm Tube Eye Ointment Administered 03/15/24 00:58 Dose 1 gm .ROUTE .STK-MED ONE Fentanyl Citrate Confirm 03/14/24 23:37 Fentanyl Citrate 250 Mcg/5 Ml Ampul Administered 03/14/24 23:38 Dose 1,500 mcg .ROUTE .STK-MED ONE Furosemide 40 mg 03/14/24 22:51 Furosemide 40 Mg/4 Ml Vial IV 03/14/24 22:52 STAT ONE Sodium Chloride 1,000 mls @ 999 mls/hr 03/14/24 20:50 03/14/24 21:19 Sodium Chloride 0.9% 1000 Ml IV 03/14/24 21:50 999 mls/hr .Q1H1M STA Administration Azithromycin 500 mg in 250 mls @ 250 mls/hr 03/14/24 20:50 Zithromax 500 Mg/ 250 Ml Nacl Premix IV 03/14/24 21:49 STAT STA Ceftriaxone Sodium 2 gm in 100 mls @ 200 mls/hr 03/14/24 20:50 Rocephin 2 Gm/100 Ml Nacl IV 03/14/24 21:19 STAT ONE Sodium Chloride Confirm 03/14/24 20:58 Sodium Chloride 0.9% 1000 Ml Administered 03/14/24 20:59 Dose 1,000 mls @ ud .ROUTE .STK-MED ONE Ceftriaxone Sodium Confirm 03/14/24 20:59 Rocephin 2 Gm/100 Ml Nacl Administered 03/14/24 21:00 Dose 2 gm in 100 mls @ ud IV .STK-MED ONE Piperacillin Sod/Tazobactam 100 mls @ 200 mls/hr 03/14/24 21:10 03/14/24 21:27 Sod 3.375 gm/ Sodium Chloride IV 03/14/24 21:39 200 mls/hr STAT ONE Administration Sodium Chloride Confirm 03/14/24 21:14 Sodium Chloride 100ml Mini-Bag Plus Administered 03/14/24 21:15 Dose 100 mls @ ud IV .STK-MED ONE Azithromycin Confirm 03/14/24 22:06 Zithromax 500 Mg/ 250 Ml Nacl Premix Administered 03/14/24 22:07 Dose 500 mg in 250 mls @ ud IV .STK-MED ONE Sodium Chloride Confirm 03/14/24 23:35 Sodium Chloride 0.9% 150 Ml Administered 03/14/24 23:36 Dose 150 mls @ ud IV .STK-MED ONE Norepinephrine/Dextrose Confirm 03/15/24 00:37 Norepinephrine 8 Mg/250 Ml-D5w Administered 03/15/24 00:38 Dose 8 mg in 250 mls @ ud IV .STK-MED ONE Ketamine HCl 140 mg 03/14/24 23:33 Ketamine Hcl 50 Mg/Ml 1.5 mg/kg (140 mg) 03/14/24 23:34 IV STAT STA Labetalol HCl 20 mg 03/14/24 21:07 03/14/24 21:35 Labetalol Hcl 20 Mg/4 Ml Disp.Syringe IV 03/14/24 21:08 Not Given STAT ONE Labetalol HCl Confirm 03/14/24 21:14 Labetalol Hcl 20 Mg/4 Ml Disp.Syringe Administered 03/14/24 21:15 Dose 20 mg IV .STK-MED ONE Lorazepam 2 mg 03/14/24 22:43 03/14/24 22:46 Lorazepam 2 Mg/1 Ml 2 Mg Vial IV 03/14/24 22:44 2 mg STAT ONE Administration Lorazepam Confirm 03/14/24 22:46 Lorazepam 2 Mg/1 Ml 2 Mg Vial Administered 03/14/24 22:47 Dose 2 mg .ROUTE .STK-MED ONE Piperacillin Sod/Tazobactam Sod Confirm 03/14/24 21:14 Piperacillin/Tazobactam Sodium 3.375 Gm Vial Administered 03/14/24 21:15 Dose 3.375 gm IV .STK-MED ONE Rocuronium [place] 90 mg 03/14/24 23:33 Rocuronium [place] 100 Mg/10ml Vial 1 mg/kg (90 mg) 03/14/24 23:34 IV STAT STA Lab/Rad Data: Laboratory Result Diagrams 03/14/24 21:15 03/14/24 21:15 Laboratory Results 03/15/24 03/15/24 03/15/24 Range/Units 01:00 00:56 00:55 WBC (4.23-9.07) x10^3/uL RBC (4.63-6.08) x10^6/uL Hgb (13.7-17.5) g/dL Hct (40.1-51.0) % MCV (79.0-92.2) fL MCH (25.7-32.2) pg MCHC (32.3-36.5) g/dL RDW (11.6-14.4) % Plt Count (163-337) x10^3/uL MPV (9.4-12.4) fL Gran % (34.0-67.9) % Immature Gran % (Auto) (0.001-0.429) % Nucleat RBC Rel Count (0.00-0.2) % Eos # (Auto) (0.04-0.54) x10^3/uL Immature Gran # (Auto) (0.001-0.031) x10^3u/L Absolute Lymphs (auto) (1.32-3.57) x10^3/uL Absolute Monos (auto) (0.30-0.82) x10^3/uL Absolute Nucleated RBC (0.00-0.012) x10^3u/L Lymphocytes % (21.8-53.1) % Monocytes % (5.3-12.2) % Eosinophils % (0.8-7.0) % Basophils % (0.2-1.2) % Absolute Granulocytes (1.78-5.38) x10^3/uL Basophils # (0.01-0.08) x10^3/uL D-Dimer (0.0-0.50) mg/L Puncture Site RRA pCO2 49 H (35-45) mmHg pO2 81 (75-100) mmHg pO2/FiO2 Ratio % Base Excess -5.5 L (-2.0-2.0) O2 Saturation 93.6 L (94-100) g/dF ABG pH 7.26 L (7.35-7.45) ABG HCO3 22.0 (22-28) ABG O2 Sat (Measured) 96.1 (95-100) % Anthony Test yes VBG pH (7.32-7.42) VBG pCO2 at Pat Temp (42-55) mm/Hg VBG pO2 at Pat Temp (25-40) mm/Hg VBG HCO3 (22-28) meq/L VBG O2 Sat ([place]) (95-100) VBG Base Excess (-2.0-2.0) VBG Hemoglobin VBG Carboxyhemoglobin (0.0-6.9) % T HGB A-a Gradient 571 a/A Ratio 0.12 Hemoglobin 16.6 Carboxyhemoglobin 1.5 (0.0-6.9) % THgb Methemoglobin 1.0 L (1.4-1.5) % POC Potassium (3.5-5.1) Temperature 37.0 C POC O2 Flow Rate 100 % Sodium (135-145) mmol/L Potassium 4.6 (3.5-5.1) mmol/L Chloride (98-107) mmol/L Carbon Dioxide (22-30) mmol/L Anion Gap (5-15) MEQ/L BUN (9-20) mg/dL Creatinine (0.66-1.25) mg/dL Estimated GFR ML/MIN Glucose (74-106) mg/dL Lactic Acid (0.4-2.0) Calcium (8.4-10.2) mg/dL Magnesium (1.6-2.3) mg/dL Total Bilirubin (0.2-1.3) mg/dL AST (17-59) U/L ALT (0-50) U/L Alkaline Phosphatase (38-126) U/L Troponin I 0.083 H* (0.000-0.033) ng/mL NT-Pro-B Natriuret Pep (<300) pg/mL Serum Total Protein (6.3-8.2) g/dL Albumin (3.5-5.0) g/dL Procalcitonin (0.030-0.080) ng/mL Urine Color Yellow (Yellow) Urine Appearance Clear (Clear) Urine pH 5.5 (4.6-8.0) Ur Specific [place] >=1.030 A (1.005-1.030) Urine Protein 100 A (Negative) Urine Glucose (UA) Negative (Negative) mg/dL Urine Ketones Trace A (Negative) Urine Blood Negative (Negative) Urine Nitrite Negative (Negative) Urine Bilirubin Negative (Negative) Urine Urobilinogen 0.2 (0.2) mg/dL Ur Leukocyte Esterase Negative (Negative) U Hyaline Cast (Auto) NONE SEEN (0-2) /LPF Urine Microscopic RBC 0-2 (0-5) /HPF Urine Microscopic WBC 0-2 (0-5) /HPF Ur Epithelial Cells None Seen (None Seen) /HPF Urine Bacteria None Seen (None Seen) /HPF Influenza Type A Ag (NEGATIVE) Influenza Type B Ag (NEGATIVE) RSV (PCR) (NEGATIVE) SARS-CoV-2 (PCR) (NEGATIVE) 03/14/24 03/14/24 03/14/24 Range/Units 23:25 21:20 21:15 WBC (4.23-9.07) x10^3/uL RBC (4.63-6.08) x10^6/uL Hgb (13.7-17.5) g/dL Hct (40.1-51.0) % MCV (79.0-92.2) fL MCH (25.7-32.2) pg MCHC (32.3-36.5) g/dL RDW (11.6-14.4) % Plt Count (163-337) x10^3/uL MPV (9.4-12.4) fL Gran % (34.0-67.9) % Immature Gran % (Auto) (0.001-0.429) % Nucleat RBC Rel Count (0.00-0.2) % Eos # (Auto) (0.04-0.54) x10^3/uL Immature Gran # (Auto) (0.001-0.031) x10^3u/L Absolute Lymphs (auto) (1.32-3.57) x10^3/uL Absolute Monos (auto) (0.30-0.82) x10^3/uL Absolute Nucleated RBC (0.00-0.012) x10^3u/L Lymphocytes % (21.8-53.1) % Monocytes % (5.3-12.2) % Eosinophils % (0.8-7.0) % Basophils % (0.2-1.2) % Absolute Granulocytes (1.78-5.38) x10^3/uL Basophils # (0.01-0.08) x10^3/uL D-Dimer (0.0-0.50) mg/L Puncture Site pCO2 (35-45) mmHg pO2 (75-100) mmHg pO2/FiO2 Ratio % Base Excess (-2.0-2.0) O2 Saturation (94-100) g/dF ABG pH (7.35-7.45) ABG HCO3 (22-28) ABG O2 Sat (Measured) (95-100) % Anthony Test VBG pH (7.32-7.42) VBG pCO2 at Pat Temp (42-55) mm/Hg VBG pO2 at Pat Temp (25-40) mm/Hg VBG HCO3 (22-28) meq/L VBG O2 Sat ([place]) (95-100) VBG Base Excess (-2.0-2.0) VBG Hemoglobin VBG Carboxyhemoglobin (0.0-6.9) % T HGB A-a Gradient a/A Ratio Hemoglobin Carboxyhemoglobin (0.0-6.9) % THgb Methemoglobin (1.4-1.5) % POC Potassium (3.5-5.1) Temperature C POC O2 Flow Rate % Sodium (135-145) mmol/L Potassium (3.5-5.1) mmol/L Chloride (98-107) mmol/L Carbon Dioxide (22-30) mmol/L Anion Gap (5-15) MEQ/L BUN (9-20) mg/dL Creatinine (0.66-1.25) mg/dL Estimated GFR ML/MIN Glucose (74-106) mg/dL Lactic Acid 1.0 (0.4-2.0) Calcium (8.4-10.2) mg/dL Magnesium (1.6-2.3) mg/dL Total Bilirubin (0.2-1.3) mg/dL AST (17-59) U/L ALT (0-50) U/L Alkaline Phosphatase (38-126) U/L Troponin I 0.103 H* (0.000-0.033) ng/mL NT-Pro-B Natriuret Pep 3980 (<300) pg/mL Serum Total Protein (6.3-8.2) g/dL Albumin (3.5-5.0) g/dL Procalcitonin 0.084 H (0.030-0.080) ng/mL Urine Color (Yellow) Urine Appearance (Clear) Urine pH (4.6-8.0) Ur Specific [place] (1.005-1.030) Urine Protein (Negative) Urine Glucose (UA) (Negative) mg/dL Urine Ketones (Negative) Urine Blood (Negative) Urine Nitrite (Negative) Urine Bilirubin (Negative) Urine Urobilinogen (0.2) mg/dL Ur Leukocyte Esterase (Negative) U Hyaline Cast (Auto) (0-2) /LPF Urine Microscopic RBC (0-5) /HPF Urine Microscopic WBC (0-5) /HPF Ur Epithelial Cells (None Seen) /HPF Urine Bacteria (None Seen) /HPF Influenza Type A Ag NEGATIVE (NEGATIVE) Influenza Type B Ag NEGATIVE (NEGATIVE) RSV (PCR) NEGATIVE (NEGATIVE) SARS-CoV-2 (PCR) NEGATIVE (NEGATIVE) 03/14/24 03/14/24 03/14/24 Range/Units 21:15 21:15 21:15 WBC 15.8 H (4.23-9.07) x10^3/uL RBC 4.97 (4.63-6.08) x10^6/uL Hgb 15.8 (13.7-17.5) g/dL Hct 46.2 (40.1-51.0) % MCV 93.0 H (79.0-92.2) fL MCH 31.8 (25.7-32.2) pg MCHC 34.2 (32.3-36.5) g/dL RDW 14.0 (11.6-14.4) % Plt Count 202 (163-337) x10^3/uL MPV 10.3 (9.4-12.4) fL Gran % 67.5 (34.0-67.9) % Immature Gran % (Auto) 0.4 (0.001-0.429) % Nucleat RBC Rel Count 0.0 (0.00-0.2) % Eos # (Auto) 0.13 (0.04-0.54) x10^3/uL Immature Gran # (Auto) 0.07 H (0.001-0.031) x10^3u/L Absolute Lymphs (auto) 3.70 H (1.32-3.57) x10^3/uL Absolute Monos (auto) 1.20 H (0.30-0.82) x10^3/uL Absolute Nucleated RBC 0.00 (0.00-0.012) x10^3u/L Lymphocytes % 23.4 (21.8-53.1) % Monocytes % 7.6 (5.3-12.2) % Eosinophils % 0.8 (0.8-7.0) % Basophils % 0.3 (0.2-1.2) % Absolute Granulocytes 10.70 H (1.78-5.38) x10^3/uL Basophils # 0.04 (0.01-0.08) x10^3/uL D-Dimer 3.84 H* (0.0-0.50) mg/L Puncture Site pCO2 (35-45) mmHg pO2 (75-100) mmHg pO2/FiO2 Ratio % Base Excess (-2.0-2.0) O2 Saturation (94-100) g/dF ABG pH (7.35-7.45) ABG HCO3 (22-28) ABG O2 Sat (Measured) (95-100) % Anthony Test VBG pH (7.32-7.42) VBG pCO2 at Pat Temp (42-55) mm/Hg VBG pO2 at Pat Temp (25-40) mm/Hg VBG HCO3 (22-28) meq/L VBG O2 Sat ([place]) (95-100) VBG Base Excess (-2.0-2.0) VBG Hemoglobin VBG Carboxyhemoglobin (0.0-6.9) % T HGB A-a Gradient a/A Ratio Hemoglobin Carboxyhemoglobin (0.0-6.9) % THgb Methemoglobin (1.4-1.5) % POC Potassium (3.5-5.1) Temperature C POC O2 Flow Rate % Sodium 135 (135-145) mmol/L Potassium 4.2 (3.5-5.1) mmol/L Chloride 105 (98-107) mmol/L Carbon Dioxide 20 L (22-30) mmol/L Anion Gap 13.4 (5-15) MEQ/L BUN 14 (9-20) mg/dL Creatinine 0.73 (0.66-1.25) mg/dL Estimated GFR 89.2 ML/MIN Glucose 98 (74-106) mg/dL Lactic Acid (0.4-2.0) Calcium 9.1 (8.4-10.2) mg/dL Magnesium 1.9 (1.6-2.3) mg/dL Total Bilirubin 1.00 (0.2-1.3) mg/dL AST 41 (17-59) U/L ALT 28 (0-50) U/L Alkaline Phosphatase 71 (38-126) U/L Troponin I (0.000-0.033) ng/mL NT-Pro-B Natriuret Pep (<300) pg/mL Serum Total Protein 7.1 (6.3-8.2) g/dL Albumin 4.0 (3.5-5.0) g/dL Procalcitonin (0.030-0.080) ng/mL Urine Color (Yellow) Urine Appearance (Clear) Urine pH (4.6-8.0) Ur Specific [place] (1.005-1.030) Urine Protein (Negative) Urine Glucose (UA) (Negative) mg/dL Urine Ketones (Negative) Urine Blood (Negative) Urine Nitrite (Negative) Urine Bilirubin (Negative) Urine Urobilinogen (0.2) mg/dL Ur Leukocyte Esterase (Negative) U Hyaline Cast (Auto) (0-2) /LPF Urine Microscopic RBC (0-5) /HPF Urine Microscopic WBC (0-5) /HPF Ur Epithelial Cells (None Seen) /HPF Urine Bacteria (None Seen) /HPF Influenza Type A Ag (NEGATIVE) Influenza Type B Ag (NEGATIVE) RSV (PCR) (NEGATIVE) SARS-CoV-2 (PCR) (NEGATIVE) 03/14/24 03/14/24 Range/Units 20:51 20:50 WBC (4.23-9.07) x10^3/uL RBC (4.63-6.08) x10^6/uL Hgb (13.7-17.5) g/dL Hct (40.1-51.0) % MCV (79.0-92.2) fL MCH (25.7-32.2) pg MCHC (32.3-36.5) g/dL RDW (11.6-14.4) % Plt Count (163-337) x10^3/uL MPV (9.4-12.4) fL Gran % (34.0-67.9) % Immature Gran % (Auto) (0.001-0.429) % Nucleat RBC Rel Count (0.00-0.2) % Eos # (Auto) (0.04-0.54) x10^3/uL Immature Gran # (Auto) (0.001-0.031) x10^3u/L Absolute Lymphs (auto) (1.32-3.57) x10^3/uL Absolute Monos (auto) (0.30-0.82) x10^3/uL Absolute Nucleated RBC (0.00-0.012) x10^3u/L Lymphocytes % (21.8-53.1) % Monocytes % (5.3-12.2) % Eosinophils % (0.8-7.0) % Basophils % (0.2-1.2) % Absolute Granulocytes (1.78-5.38) x10^3/uL Basophils # (0.01-0.08) x10^3/uL D-Dimer (0.0-0.50) mg/L Puncture Site pCO2 (35-45) mmHg pO2 (75-100) mmHg pO2/FiO2 Ratio 45.0 % Base Excess (-2.0-2.0) O2 Saturation (94-100) g/dF ABG pH (7.35-7.45) ABG HCO3 (22-28) ABG O2 Sat (Measured) (95-100) % Anthony Test VBG pH 7.51 H (7.32-7.42) VBG pCO2 at Pat Temp 28 L (42-55) mm/Hg VBG pO2 at Pat Temp 43 H (25-40) mm/Hg VBG HCO3 22.3 (22-28) meq/L VBG O2 Sat ([place]) 77.4 L (95-100) VBG Base Excess 0.7 (-2.0-2.0) VBG Hemoglobin 16.7 VBG Carboxyhemoglobin 5.5 (0.0-6.9) % T HGB A-a Gradient a/A Ratio Hemoglobin Carboxyhemoglobin (0.0-6.9) % THgb Methemoglobin (1.4-1.5) % POC Potassium 4.4 (3.5-5.1) Temperature C POC O2 Flow Rate % Sodium (135-145) mmol/L Potassium (3.5-5.1) mmol/L Chloride (98-107) mmol/L Carbon Dioxide (22-30) mmol/L Anion Gap (5-15) MEQ/L BUN (9-20) mg/dL Creatinine (0.66-1.25) mg/dL Estimated GFR ML/MIN Glucose (74-106) mg/dL Lactic Acid 2.3 H (0.4-2.0) Calcium (8.4-10.2) mg/dL Magnesium (1.6-2.3) mg/dL Total Bilirubin (0.2-1.3) mg/dL AST (17-59) U/L ALT (0-50) U/L Alkaline Phosphatase (38-126) U/L Troponin I (0.000-0.033) ng/mL NT-Pro-B Natriuret Pep (<300) pg/mL Serum Total Protein (6.3-8.2) g/dL Albumin (3.5-5.0) g/dL Procalcitonin (0.030-0.080) ng/mL Urine Color (Yellow) Urine Appearance (Clear) Urine pH (4.6-8.0) Ur Specific [place] (1.005-1.030) Urine Protein (Negative) Urine Glucose (UA) (Negative) mg/dL Urine Ketones (Negative) Urine Blood (Negative) Urine Nitrite (Negative) Urine Bilirubin (Negative) Urine Urobilinogen (0.2) mg/dL Ur Leukocyte Esterase (Negative) U Hyaline Cast (Auto) (0-2) /LPF Urine Microscopic RBC (0-5) /HPF Urine Microscopic WBC (0-5) /HPF Ur Epithelial Cells (None Seen) /HPF Urine Bacteria (None Seen) /HPF Influenza Type A Ag (NEGATIVE) Influenza Type B Ag (NEGATIVE) RSV (PCR) (NEGATIVE) SARS-CoV-2 (PCR) (NEGATIVE) - Progress Progress: re-examined Air Movement: fair Progress Note: Patient brought in by ambulance in respiratory distress. He was given DuoNeb and Solu-Medrol en route to the hospital without significant improvement. He was placed on a oxime mask on arrival on 6 L which brought his oxygen saturation up to low 90s. He remained tachycardic in the 130s. Chest x-ray shows diffuse bilateral infiltrates. White count 15.8. Lactate 2.8. Initial VBG showed a pH of 7.5, pCO2 of 28 and pO2 of 43. D-dimer elevated at 3.84. Initial troponin elevated at 0.1 likely type II OR. CTA chest was ordered which showed no PE, but confirmed extensive bilateral pneumonia. Patient was started on Zosyn and azithromycin. Blood cultures were done prior to antibiotic initiation. After CT scan patient began experiencing worsening shortness of breath began to hyperventilate with oxygen levels in the low 80s. 2 mg Ativan were given he was able to slow his breathing down, but unable to get his oxygen saturation up over 90. Patient remains full code and interested in intubation at this time. Rapid sequence intubation performed with ketamine and rocuronium. [place] scope was used to place an 8.0 ET tube. Once intubated we were able to get his oxygen saturation up to the low 90s and heart rate improved. He was experiencing hypotension MAP less than 65 with sedation medications so Levophed was initiated. BP improved. Central line in the right IJ was attempted, but unable to successfully get placed due to neck positioning. Patient was accepted for transfer to [facility] at [address] Roldan. Patient left our fa cility if he is ambulance at 0250. Blood Culture(s) Obtained: Yes Antibiotics given: Yes Counseled pt/family regarding: lab results, diagnosis, need for follow-up, rad results Medical Desision Making - Diagnostic Testing Diagnostic test were ordered, analyzed, and reviewed by me: Yes Radiological Interpretation: Interpreted by me, Reviewed by me, Teleradiologist Report - Risk of complications The pt has a mod risk of morbidity or mortality based on: Need for prescription drug management The pt has a high risk of morbidity or mortality based on: Decision regarding hospitilization or escalation of hosp level of care - Departure Departure Disposition: Transfer ([facility]) Clinical Impression: Acute hypoxic respiratory failure, Bilateral pneumonia, Elevated d-dimer, Elevated troponin, Severe sepsis Condition: Critical Critical Care Time: Yes Critical Care Time(excluding separately billable procedures): Critical 105-134 mins Referrals: TANVI HENRY JR [Primary Care Provider] - Follow up/PCP as directed Instructions: Pneumonia, Adult (DC)
[2024-03-14] MEDS ORDERED: Sodium Chloride 0.9% 1000 ML 1,000 ML ONE (20:58)
[2024-03-14] MEDS ORDERED: ROCEPHIN 2 GM/100 ML NACL 0 GM/0 ML IVPB IV ONE (20:59)
[2024-03-14] MEDS ORDERED: DUONEB 0.5-3 MG/3 ml Neb IH ONE (21:04)
[2024-03-14] MEDS: DUONEB 0.5-3 MG/3 ml Neb IH ONE (21:05)
[2024-03-14] MEDS ORDERED: Sodium Chloride 100ML MINI-BAG PLUS 100 ML IV ONE (21:14)
[2024-03-14] MEDS ORDERED: PIPERACILLIN/TAZOBACTAM IV ONE (21:14)
[2024-03-14] MEDS ORDERED: TRANDATE 20 MG/4 ML SYRINGE IV ONE (21:14)
[2024-03-14] MEDS: Sodium Chloride 0.9% 1000 ML 1,000 ML IV STA (21:19)
[2024-03-14 21:24] LABS: BASOPHIL % 0.3 % (0.2-1.2); Basophil (Absolute #) 0.04 x10^3/uL (0.01-0.08); Eosinophil % 0.8 % (0.8-7.0); Eosinophil (Absolute #) 0.13 x10^3/uL (0.04-0.54); Hematocrit 46.2 % (40.1-51.0); Hemoglobin 15.8 g/dL (13.7-17.5); IMMATURE GRAN # 0.07 x10^3u/L (0.001-0.031); IMMATURE GRAN % 0.4 % (0.001-0.429); Lymphocytes % 23.4 % (21.8-53.1); Mean Corpuscular Hemoglobin 31.8 pg (25.7-32.2); Mean Corpuscular Hgb Concent. 34.2 g/dL (32.3-36.5); Mean Platelet Volume 10.3 fL (9.4-12.4); Monocytes % 7.6 % (5.3-12.2); Neutrophil % 67.5 % (34.0-67.9); Platelet Count 202 x10^3/uL (163-337); Red Blood Count 4.97 x10^6/uL (4.63-6.08); White Blood Count 15.8 x10^3/uL (4.23-9.07)
[2024-03-14 21:26] LABS: VBG BASE EXCESS 0.7 (-2.0-2.0); VBG CARBOXYHEMOGLOBIN 5.5 % T HGB (0.0-6.9); VBG HCO3- 22.3 meq/L (22-28); VBG HEMOGLOBIN 16.7; VBG O2 SATURATION 77.4 (95-100); VBG POTASSIUM 4.4 (3.5-5.1); VBG pH 7.51 (7.32-7.42)
[2024-03-14] MEDS: PIPERACILLIN/TAZOBACTAM 3.375 GM in Sodium Chloride 100ML MINI-BAG PLUS 100 ML IV ONE (21:27)
[2024-03-14] MEDS: TRANDATE 20 MG/4 ML SYRINGE IV ONE (21:35)
[2024-03-14 21:38] LABS: ANION GAP 13.4 MEQ/L (5-15); Calcium 9.1 mg/dL (8.4-10.2); Creatinine 1 0.73 mg/dL (0.66-1.25); EST GLOMERULAR FILTRATION RATE 89.2 ML/MIN; MAGNESIUM 1.9 mg/dL (1.6-2.3); Potassium 4.2 mmol/L (3.5-5.1); Total Protein 7.1 g/dL (6.3-8.2)
[2024-03-14 21:55] LABS: PROCALCITONIN 0.084 ng/mL (0.030-0.080)
[2024-03-14 22:03] LABS: INFLUENZA A NEGATIVE (NEGATIVE); INFLUENZA B NEGATIVE (NEGATIVE); RESPIRATORY SYNCTIAL VIRUS NEGATIVE (NEGATIVE); SARS-CoV-2 Xpert Express NEGATIVE (NEGATIVE)
[2024-03-14] MEDS ORDERED: Zithromax 500 MG/ 250 ML NaCl Premix 500 MG/250 ML IVPB IV ONE (22:06)
[2024-03-14] MEDS ORDERED: BABY ASPIRIN 81 MG CHEW ONE (22:06)
[2024-03-14] MEDS ORDERED: PLAVIX Tablet ONE (22:06)
[2024-03-14] MEDS ORDERED: ENOXAPARIN SODIUM SQ ONE (22:06)
[2024-03-14] MEDS: BABY ASPIRIN 81 MG CHEW PO ONE (22:07)
[2024-03-14] MEDS: PLAVIX Tablet PO ONE (22:08)
[2024-03-14] MEDS: ENOXAPARIN SODIUM SQ STA (22:08)
[2024-03-14 22:34] LABS: TROPONIN 0.103 ng/mL (0.000-0.033)
[2024-03-14] MEDS ORDERED: Ativan 2 MG/1 ML VIAL ONE (22:46)
[2024-03-14] MEDS: Ativan 2 MG/1 ML VIAL IV ONE (22:46)
[2024-03-14] MEDS ORDERED: Propofol 1000 mg/100 ml Bottle 100 ML IV PRN (23:33)
[2024-03-14] MEDS ORDERED: FENTANYL 500 MCG/10 ML VIAL 1,500 MCG in Sodium Chloride 0.9% 150 ML 120 ML IV PRN (23:33)
[2024-03-14] MEDS ORDERED: Ketamine HCl 50 MG/ML IV STA (23:33)
[2024-03-14] MEDS ORDERED: Sodium Chloride 0.9% 150 ML 150 ML IV ONE (23:35)
[2024-03-14] MEDS ORDERED: SUBLIMAZE 250 MCG/5 ML ONE (23:37)
[2024-03-14] MEDS ORDERED: Propofol 1000 mg/100 ml Bottle 100 ML IV ONE (23:46)
[2024-03-14] MEDS: Zemuron 100 MG/10 ML IV STA (23:46)
--- NOTE | 2024-03-14 23:46 | XRAY ---
CLINICAL HISTORY: sob COMPARISON: 12/14/2023 TECHNIQUE: Contiguous axial images were obtained from the neck base through the upper abdomen following intravenous administration of contrast material. If IV contrast material had not been administered, the likelihood of detecting abnormalities relevant to the patient's condition would have been substantially decreased. In addition, sagittal and coronal reconstructions were performed. CT scan was performed according to ALARA (as low as reasonably achievable). FINDINGS: Interval increase in bilateral lung nodules and consolidation scattered in both lungsPredominantly in BilateralBasal segments of lower lobes and posterior segments of upper lobes.Bilateral emphysematous changes with upper lobar predominance.The central airways are patent. There are no pleural effusions.No pneumothorax is seen. No axillary or mediastinal adenopathy is identified. The thyroid is unremarkable. Cardiomegaly.The dilated ascending aorta measures 49 mm.Thoracic aortic, scanned abdominal aorta and coronary arteries intimal atherosclerotic calcifications. There are no appreciable coronary artery and aortic atherosclerotic calcifications. No pericardial effusion is identified. Imaged portions of the upper abdomen shows fatty liver. Thoracic spine degenerative changes with osteophytes.Bilateral shoulder prosthetic joint replacements.No aggressive appearing osseous lesions are identified. IMPRESSION: 1.There is interval increase in nodules/areas of consolidation in bilateral lungs predominantly in dependent segments -Likely to representAspiration pneumonitis /Infective etiology.Left 2.Stable emphysematous changes. Electronically Signed by: Vin Deleon MD. (03/14/2024 23:42:17 EST)
[2024-03-15 00:29] VITALS: RESP 16
[2024-03-15] MEDS ORDERED: NOREPINEPHRINE 8 MG/250 ML-D5W 8 MG/250 ML PLAST..BAG IV ONE (00:37)
[2024-03-15] MEDS ORDERED: Erythromycin 1 GM ONE (00:57)
[2024-03-15] MEDS: Erythromycin 1 GM OP STA (00:58)
[2024-03-15 01:05] LABS: A-aADO2 571; ABG HEMOGLOBIN 16.6; ABG POTASSIUM 4.6 (3.5-5.1); ALLEN TEST OK? yes; ARTERIAL BLD GAS O2 SATURATION 96.1 % (95-100); ARTERIAL BLOOD GAS BASE EXCESS -5.5 (-2.0-2.0); ARTERIAL BLOOD GAS FIO2 100 %; ARTERIAL BLOOD GAS PCO2 49 mmHg (35-45); ARTERIAL BLOOD GAS PO2 81 mmHg (75-100); ARTERIAL BLOOD GAS pH 7.26 (7.35-7.45); CARBOXYHEMOGLOBIN 1.5 % THgb (0.0-6.9); HGB O2 SAT 93.6 g/dF (94-100); paO2 pAO1 0.12
[2024-03-15 01:06] LABS: ABG SITE RRA
[2024-03-15 01:20] VITALS: TEMP 98.8; O2SAT 95
[2024-03-15 01:30] LABS: Appearance Clear (Clear); Bacteria None Seen /HPF (None Seen); Bilirubin Negative (Negative); Blood Negative (Negative); Epithelial Cells None Seen /HPF (None Seen); Glucose, Urine Negative (Negative); Hyaline Casts NONE SEEN /LPF (0-2); Ketones Trace (Negative); Leukocyte Esterase Negative (Negative); Nitrite Negative (Negative); Ph 5.5 (4.6-8.0); Protein,Urine Dip 100 (Negative); RBC 0-2 /HPF (0-5); Specific Gravity >=1.030 (1.005-1.030); Urobilinogen 0.2 mg/dL (0.2); WBC 0-2 /HPF (0-5)
[2024-03-15 02:09] VITALS: BP 106/68; PULSE 96
[2024-03-15] MEDS: ROCEPHIN 2 GM/100 ML NACL 2 GM/100 ML IVPB IV ONE (05:28)
[2024-03-15] MEDS: Zithromax 500 MG/ 250 ML NaCl Premix 500 MG/250 ML IVPB IV STA (05:31)
[2024-03-15] MEDS: Lasix 40 MG/4 ML IV ONE (05:32)
--- NOTE | 2024-03-15 08:14 | XRAY ---
Indication: Short of breath. Comparison: November 28, 2022 Portable chest now demonstrates bilateral mid to lower lung consolidating/nonconsolidating airspace disease. Heart remains borderline enlarged again with tortuous descending aorta. Bony thorax intact again with osteopenia, degenerative changes, and bilateral shoulder arthroplasty.
--- NOTE | 2024-03-15 08:16 | XRAY ---
Indication: Intubation. Comparison: Taken earlier in the day. Limited portable chest does not completely include right lung. New endotracheal tube tip approximately 4.5 cm above [place]. Grossly worsening more diffuse bilateral consolidating/nonconsolidating airspace disease. Heart remains borderline enlarged.
== END 2024-03-15 02:48 | disposition short-term general hospital (02) ==
LOC: ED 20:40
DX: A41.9 Sepsis, unspecified organism (principal); J18.9 Pneumonia, unspecified organism; R65.20 Severe sepsis without septic shock; J96.01 Acute respiratory failure with hypoxia; R79.1 Abnormal coagulation profile; R77.8 Other specified abnormalities of plasma proteins; I10 Essential (primary) hypertension; Z79.891 Long term (current) use of opiate analgesic; Z79.899 Other long term (current) drug therapy
CPT/HCPCS: 0241U; 31500; 36415; 36556; 36600; 71045; 71260; 80053; 81001; 82375; 82803; 82805; 83605; 83735; 83880; 84145; 84484; 85025; 85379; 87040; 87086; 93005; 93041; 94002; 94640; 96365; 96375; 99291; 99292; 99285; J0456; J0696; J1650; J2060; J2704; J3010; A9270-GY